=== PATIENT | male | born 1935 | race Caucasian/White ===

== ENCOUNTER 2018-11-18 09:50 | Inpatient (IN) | payer MEDICARE ==
[2018-11-18] MEDS ORDERED: Bisacodyl SUPP* 10 MG SUPP PR PRN (12:20)
[2018-11-18] MEDS ORDERED: Magnesium Hydroxide LIQ* 30 ML UDC PO PRN (12:20)
[2018-11-18] MEDS: Heparin VIAL(*) 5000 UNITS/ML VIAL (FIVE THOUSAND) SUBCUT SCH ×2 (17:07→23:51)
--- NOTE | 2018-11-18 17:28 | HP ---
ADMISSION HISTORY AND PHYSICAL: DATE OF ADMISSION: 11/18/18 REASON FOR ADMISSION: Stroke with left hemiparesis, greater in the arm than the leg. HISTORY OF PRESENT ILLNESS: Brandon ePters is an 83-year-old male. He has a medical history significant for a pacemaker for bradycardia and paroxysmal atrial fibrillation. The patient also has a history of hypertension as well. The patient normally lives by himself in [place], [place], but comes frequently to camp [place] a [place] on [address]. He has a grandson who goes to [place] and a son and [id number] who live in the area. Apparently, the patient was found down in his cabin by a neighbor. The exact period of time that he was down is unclear. He was slurring his words and had a left facial droop and had a right gaze preference. 911 was called and EMS brought him to the hospital on 11/14/18. NIH Stroke Scale was 21, but he was not a candidate for tPA as it was unknown how long he had the stroke for. His stroke was already seen on CAT scan in the emergency room. He was not a candidate for an MRI because of the pacemaker. He was started on Plavix. He had a neurology consultation with Dr. Santos. 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 It was recommended that he continue Plavix 75 mg daily. He will likely be a candidate to start Eliquis on 11/26/18. The patient's Eliquis will have to be renally dosed as he has chronic kidney disease. The patient did have a flaccid left upper extremity and with good strength in his left leg but poor balance. The patient was felt to have physical therapy, occupational therapy, and speech therapy needs. He was evaluated by Speech Therapy, and it was recommended that he have a videofluoroscopy swallow exam. The patient is now being admitted for inpatient rehab so that he might return to independent living. PAST MEDICAL HISTORY: Includes the aforementioned hypertension, paroxysmal atrial fibrillation, previous stroke or TIA 10 years ago, and prostatic hypertrophy. CURRENT MEDICATIONS: Include: 1. Lipitor. 2. Plavix. 3. Proscar. 4. Folic acid. 5. Melatonin. 6. Protonix. 7. Heparin for DVT prophylaxis. ALLERGIES: The patient has allergies listed to PENICILLIN. SOCIAL HISTORY: The patient quit smoking 8 years ago after his pacemaker was placed. He was a moderate drinker and had a few glasses of wine daily. He lives by himself normally in [place], [place], but as mentioned was visiting to be nearer his son. REVIEW OF SYSTEMS: The patient reports no current shortness of breath or chest pain. PHYSICAL EXAMINATION VITAL SIGNS: The patient's temperature is 95.1, blood pressure is 165/85, pulse 70, respirations 18. HEENT: He has a left facial droop. NECK: Supple. LUNGS: Lungs sounded clear to auscultation bilaterally. HEART: Heart sounds were regular. S1 and S2 audible. ABDOMEN: Soft and nontender. EXTREMITIES: His left upper extremity was flaccid for the most part. Peripheral pulses were intact. NEUROLOGIC: He had trace shoulder shrug on the left. Otherwise, no active movement in his left upper extremity. Left lower extremity had significantly better movement, at least 4/5 strength in hip flexion and extension, quadriceps and hamstrings. He could dorsiflex and plantarflex slightly. FUNCTIONAL EXAM: He transfers with mod assist of 2 people. ASSESSMENT: Cerebrovascular accident with left hemiparesis. PLAN: Integrate him into a comprehensive and therapeutic rehab program with the following goals: 1. Physical Therapy will see the patient, work on functional transfer training and ambulation training with a walker. 2. Occupational Therapy will see the patient, work on his activities of daily living including toileting and toilet transfers. 3. Speech Therapy will see the patient, work on his swallowing dysfunction, perform a video swallow. For now, he is going to remain on a mechanical ground diet with nectar-thick liquids. 4. Heparin for DVT prophylaxis. 5. For secondary stroke prevention, we are going to continue Plavix. We will follow Neurology's advice and change him to Eliquis in about a week. Apparently , his pacemaker was interrogated and he was found to have had episodes of atrial fibrillation. 6. For now, we are going to permit some hypertension. 7. The patient was on Klonopin at home. We are going to try to verify this and see if he needs to resume. 8. Continue folic acid for now. 9. child and family services specialist will be closely involved to make sure that any services and equipment the patient requires are in place prior to discharge. 10. Family training as appropriate. 11. Advance directives: The patient has a MOLST form and requests DNR status. 12. Home with appropriate services. ESTIMATED LENGTH OF STAY: 21 to 25 days. [id number]/[facility] #: [id number] IGOR
[2018-11-18] MEDS: Docusate CAP* 100 MG PO SCH (21:58)
[2018-11-18] MEDS: Melatonin 3 MG TAB PO PRN (23:53)
[2018-11-19 05:53] LABS: Hematocrit 40 % (42-52); Hemoglobin 13.4 g/dL (14.0-18.0); Mean Corpuscular HGB Conc 34 g/dL (31-36); Mean Corpuscular Hemoglobin 33 pg (27-31); Mean Corpuscular Volume 99 fL (80-94); Mean Platelet Volume 10.1 fL (7.4-10.4); Platelet Count 139 10^3/uL (150-450); Red Blood Count 4.03 10^6 /uL (4.18-5.48); Red Cell Distribution Width 13 % (10-15); White Blood Count 6.8 10^3/uL (3.5-10.8)
[2018-11-19] MEDS: Heparin VIAL(*) 5000 UNITS/ML VIAL (FIVE THOUSAND) SUBCUT SCH ×3 (06:08→21:29)
[2018-11-19 06:13] LABS: Albumin 3.5 g/dL (3.2-5.2); Calcium 9.2 mg/dL (8.6-10.3); Potassium 4.1 mmol/L (3.5-5.0); Total Bilirubin 0.7 mg/dL (0.2-1.0)
[2018-11-19 06:19] LABS: Albumin/Globulin Ratio 1.3 (1-3); BUN/Creatinine Ratio 29.4 (8-20); EGFR African American 57.3 (>60); EGFR Non-African American 47.3 (>60); Globulin 2.6 g/dL (2-4); Total Protein 6.1 g/dL (6.4-8.9)
[2018-11-19 06:20] LABS: ABS Basophils 0.1 10^3/ul (0-0.2); ABS Eosinophils 0.3 10^3/ul (0-0.6); ABS Lymphocytes 1.2 10^3/ul (1.0-4.8); ABS Monocytes 0.9 10^3/ul (0-0.8); ABS Neutrophils 4.3 10^3/ul (1.5-7.7); Eosinophil % 5.1 %; Large Platelets Present
[2018-11-19] MEDS: Finasteride TAB* 5 MG PO SCH (08:56)
[2018-11-19] MEDS: Docusate CAP* 100 MG PO SCH ×2 (08:56→20:00)
[2018-11-19] MEDS: Folic Acid TAB* 1 MG PO SCH (08:56)
[2018-11-19] MEDS: Clopidogrel TAB* 75 MG PO SCH (08:56)
[2018-11-19] MEDS: Pantoprazole TAB * 40 MG TAB PO SCH (08:56)
--- NOTE | 2018-11-19 12:59 | PMRUTEAM ---
PMRU: Team Meeting Current Status: Nursing: Current Status Skin Deviations [L dorsal ft, Abrasion toes] Skin Deviations [Left Temporal Abrasion ] Skin Deviations [Right Foot] Abrasion Skin Deviations [Left Heel] Other Skin Deviations [Right Elbow] Abrasion Skin Deviations [Left Lateral Abrasion Knee] Skin Deviations [Left Chest] Abrasion Skin Deviations [Left Upper Abrasion Arm] Skin Deviations [Left Shoulder Abrasion ] Skin Deviations [Left Cheek] Abrasion Skin Deviation Description [L multipodus boots in place dorsal ft, toes] Skin Deviation Description [ washed and triple antibiotic cream applied. open Left Temporal] to air Skin Deviation Description [ drsg in place. multipodus boot on when in bed Right Foot] Skin Deviation Description [ pink. multipodus boot on when in bed Left Heel] Skin Deviation Description [ drsg intact Right Elbow] Skin Deviation Description [ optifoam in place Left Lateral Knee] Skin Deviation Description [ area washed with soap and water. triple antibiotic Left Chest] cream, telfa and xeroform applied Skin Deviation Description [ optifoam changed Left Upper Arm] Skin Deviation Description [ optifoam in place Left Shoulder] Skin Deviation Description [ washed with soap and water. triple antibiotic Left Cheek] cream applied. open to air Physical Therapy: Current Status Bed Mobility Assistance Total Assist,2 or More Person Assist Transfer Mobility Assistance Total Assist,2 or More Person Assist Transfer/Bed Mobility EZ Stand Recommended Devices Ambulation Assistance Unable Ambulation Assistive Devices Large Base Quad Cane,Platform Walker,Balbir Walker Stairs Assistance Not Tested Stairs Recommended Devices Quad Cane Number of Stairs 3 Occupational Therapy: Current Status Upper Body Dressing Max Asst Lower Body Dressing Total Assist,2 Person Assist Bathing Max Asst,2 Person Assist Toileting Total Assist,2 Person Assist Eating Supervision Rec Therapy: Current Status Summary of Assessment and Pt. was very open to conversation about his Clinical Impression leisure interests and involvement. Pt. 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 Pt. was interested in continued leisure visits and pet therapy. Treatment Goals Pt. will engage in leisure activities while on the unit. Treatment Plan Provide recreation therapy services and encourage involvement. SPEECH THERAPY: CURRENT STATUS: COGNITIVE TESTED NORMAL, BUT BORDERLINE ON ATTENTION AND LANGUAGE. PERSEVERATION AND IMPULSIVITY NOTED. ASPIRATION OF THIN LIQUIDS SEEN WITH MINIMAL PENETRATION OF NECTAR THICKENED LIQUIDS Goals: Physical Therapy: Initial Goals Bed Mobility Assistance Independent Transfer Mobility Assistance Independent Transfer/Bed Mobility Large Base Quad Cane Recommended Devices Ambulation Independent Ambulation Recommended Devices Large Base Quad Cane Ambulation Distance 150 Stairs Assistance Independent Stair Recommended Devices One Rail Number of Stairs 8 Physical Therapy: Updated Goals Occupational Therapy: Initial Goals Goals to be Completed in (Days 4-6 weeks ) Upper Body Bathing Routine Modified Independent with Lower Body Bathing Routine Modified Independent with Upper Body Dressing Routine Modified Independent with Lower Body Dressing Routine Modified Independent with Toilet Hygeine and Clothing Modified Independent with Management Routine Toilet Transfer Routine Modified Independent with Tub Transfer Routine Modified Independent with Functional Transfers for ADL Modified Independent with Grooming Routine Modified Independent with Feeding Routine Modified Independent with Speech: Goals Speech Goal 1 Swallowing Speech Evaluation Status Goal Moderate 1 Goal 1 Comments Long-Term Goal: Patient will tolerate least restrictive diet consistencies w/ no stasis or clinical s/s aspiration Short Term Goals: 1) Pt will Independently use compensatory strategies to tolerate soft solid consistencies w/ no difficulty, minimal globus sensation and no clinical s/s aspiration, given Moderate cueing.. 2) Pt will use compensatory strategies to tolerate 20/20 trials of thin liquid over two sessions, w/ no clinical s/s aspiration, given Moderate cueing. 3) Pt will Speech Goal 2 Speech Speech Goal 2 Evaluation Mild Status Speech Goal 2 Comments Motor-speech Long-Term Goal: Pt will I'ly speak with 100% intelligibility Status: Goal established Short-Term Goal 1: Pt will use compensatory strategies to increase speech intelligibility to 95% in spontaneous conversational speech, given minimal cueing. Status: Goal established Speech Goal 3 Problem Solving Speech Goal 3 Evaluation Moderate Status Speech Goal 3 Comments Problem Solving Goals: Long-Term Goal: Pt will use compensatory strategies to solve moderately complex routine problems, for reading, time and money management; with 100% accuracy, Independently. Status: Goal established Short-Term Goal: Pt will use compensatory strategies to solve simple routine problems, for for reading, time and money management; with 80% accuracy, given skilled instruction, Moderate cueing, and extra time. Status: Goal established. Care Plan: Care Plan ADL's - Improve/Maintain Start: 11/18/18 15:55 Freq: DAILY@0700,1900 Status: Active Target: 12/31/18 Protocol: Activity Type Activity Date Activity User E-Sign Co-Sign Detail Recorded Client Recorded Date Recorded By Document 11/18/18 15:55 [id number] 11/18/18 15:56 [id number] 11/18/18 15:55 PMRU Outcome: ADL's/ADL Transfers Orders/Interventions Occupational Therapy Evaluation & Treatment Communication Tool in Patient Room Device Yes Address Deficits Secondary To: R CVA Patient to receive OT 5x/wk for 60-120 Therex min/day Self Care Management Group Therapy Neuromuscular ReEducation UE/LE ADL's with Assist Yes: Efraín ADL Transfers with Assist Yes: Efraín Toileting: Transfers,Clothing Management Yes: Efraín ,Hygeine w/Assist Light Kitchen/Laundry w/Assist No Progression Toward Outcome/Goals Goal Initiation Lack of Progression Comment Pt is an 83 y/o male s/p subacute nonhemorrhagic infarct R MCA presenting with L sided neglect, impaired cognition, R side gaze preferance, visual deficits , balance deficits, decreased strength and decreased insight affecting bathing, toileting, dressing and functional mobility/ transfers. Pt has difficulty maintaining midline and finding midline with his head/ eyes. Pt is very motivated and determined to "get better" . Pt will benefit from skilled OT rehabiliation to maximize independence and safety with ADL routine. Pt agreeable to OT POC. Cardiovascular- Improve/Maintain Start: 11/18/18 16:25 Freq: DAILY@0700,1900 Status: Active Target: 12/03/18 Protocol: Activity Type Activity Date Activity User E-Sign Co-Sign Detail Recorded Client Recorded Date Recorded By Document 11/19/18 08:45 [id number] 11/19/18 12:18 [id number] 11/19/18 08:45 PMRU Outcome: Cardiovascular Vital Signs q Shift for 48hrs Then BID Yes Daily Weight Ordered No Current Cardiovascular Outcome/Goal Maintain/ Achieve Baseline HR, BP , Perfusion Free of Abnormal Cardiac Symptoms Progression Toward Outcome/Goal Progressing DVT Prophylaxis- Improve/Maintain Start: 11/18/18 16:25 Freq: DAILY@0700,1900 Status: Active Target: 12/03/18 Protocol: Activity Type Activity Date Activity User E-Sign Co-Sign Detail Recorded Client Recorded Date Recorded By Document 11/19/18 08:45 [id number] 11/19/18 12:18 [id number] 11/19/18 08:45 PMRU Outcome: DVT Prophylaxis Current DVT Outcome/Goals Remains Free of DVT Complies with DVT Prophylaxis /Treatment Demonstrates Knowledge of DVT Prevention/ Treatment TEDS Stockings on Every AM, Off at HS Progression Toward Outcome/Goals Progressing Discharge Planning - Improve/Maintain Start: 11/18/18 16:25 Freq: DAILY@0700,1900 Status: Active Target: 12/17/18 Protocol: Activity Type Activity Date Activity User E-Sign Co-Sign Detail Recorded Client Recorded Date Recorded By Document 11/19/18 08:45 [id number] 11/19/18 12:18 [id number] 11/19/18 08:45 PMRU Outcome: Discharge Planning Current Discharge Planning Outcome/Goals Demonstrates Understanding of Discharge Plan Homecare Referral - See Comment Progression Toward Outcome/Goals Progressing Education-Improve/Maintain Start: 11/18/18 16:25 Freq: DAILY@699,1899 Status: Active Target: 12/17/18 Protocol: Activity Type Activity Date Activity User E-Sign Co-Sign Detail Recorded Client Recorded Date Recorded By Document 11/19/18 08:45 [id number] 11/19/18 12:18 [id number] 11/19/18 08:45 PMRU Outcome: Education Current Education Outcome/Goals Demonstrate/ Verbalize Understanding of Written Discharge Instructions Demonstrates Skills Encourage Questions Progression Toward Outcome/Goals Progressing /GI-Improve/Maintain Start: 11/18/18 16:25 Freq: DAILY@699,1899 Status: Active Target: 12/03/18 Protocol: Activity Type Activity Date Activity User E-Sign Co-Sign Detail Recorded Client Recorded Date Recorded By Document 11/19/18 08:45 [id number] 11/19/18 12:18 [id number] 11/19/18 08:45 PMRU Outcome: Genitourinary/ Gastrointestinal Current Gastrointestinal Outcome/Goals Maintain/ Achieve Bowel Regularity in Accordance with Pt's Baseline Remain Free of Emesis Prevent Constipation Bowel Regularity at Home Laxatives as Ordered Other GI Outcome/Goals bowel meds given as ordered Progression Toward Outcome/Goals Progressing Current Genitourinary Outcome/Goals Remain Free of Hospital- Acquired UTI Other Genitourinary Outcome/Goals wilson placed in ER d/t urinary retention. 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 No Mobility- Improve/Maintain Start: 11/18/18 17:21 Freq: DAILY@699,1899 Status: Active Target: 12/24/18 Protocol: Activity Type Activity Date Activity User E-Sign Co-Sign Detail Recorded Client Recorded Date Recorded By Document 11/18/18 17:22 [id number] 11/18/18 17:23 [id number] 11/18/18 17:22 PMRU Outcome: Mobility Physical Therapy Evaluation and Yes Treatment Activity OOB with Assistance Yes WBAT Yes Device Yes Assistance Yes Patient to be seen 5x/wk for 60-120 min/ Therex day for: Mobility Training Gait Training W/C Mobility Balance Current Mobility Outcome/Goals Maintain/ Achieve Baseline Mobility Status Improve Mobility Status Demonstrates Proper Use of Assistive Devices Free from Complications of Immobility Progression Toward Outcome/Goals Goal Initiation Bed Mobility Yes: independent Transfers Yes: independent with LBQC Gait x ft Yes: independent with LBQC Up/Down Stairs Yes: independent up/ down 8 stairs with 1 rail Neurological- Improve/Maintain Start: 11/18/18 16:25 Freq: DAILY@699,0 Status: Active Target: 12/17/18 Protocol: Activity Type Activity Date Activity User E-Sign Co-Sign Detail Recorded Client Recorded Date Recorded By Document 11/19/18 08:45 [id number] 11/19/18 12:18 [id number] 11/19/18 08:45 PMRU Outcome: Neurological Weakness/Aphasia Weakness Left Side Current Neurological Outcome/Goals Maintain/ Achieve Baseline Neurological Status Improve Neurological Status Prevent Avoidable Neurological Decline Demonstrate Knowledge of Prevention/Tx of Neuro Disorders/ Complication Maintain/ Improve Strength/ROM Other Neurological Outcome/Goals l arm elevated on 2pillows while in bed or chair Progression Toward Outcome/Goals Progressing Nutrition/Swallowing- Improve/Maintain Start: 11/18/18 16:25 Freq: DAILY@699,1899 Status: Active Target: 12/03/18 Protocol: Activity Type Activity Date Activity User E-Sign Co-Sign Detail Recorded Client Recorded Date Recorded By Document 11/19/18 02:03 [id number] 11/19/18 02:05 [id number] 11/19/18 02:03 PMRU Outcome: Nutrition/Swallowing Current Nutrition/Swallowing Outcome/ Demonstrates Goals Adequate Hydration/ Prevents Dehydration Maintain/ Improve Nutritional Status Other Nutrition/Swallowing Outcome/Goals pureed food, nectar-thick liquids Progression Toward Outcome/Goals Progressing Respiratory - Improve/Maintain Start: 11/18/18 16:25 Freq: DAILY@ Status: Active Target: 12/03/18 Protocol: Activity Type Activity Date Activity User E-Sign Co-Sign Detail Recorded Client Recorded Date Recorded By Document 11/19/18 08:45 [id number] 11/19/18 12:18 [id number] 11/19/18 08:45 PMRU Outcome: Respiratory Does Patient Have a Trach No Current Respiratory Outcome/Goals Maintain/ Improve Baseline Respiratory Status Maintain/ Improve Activity Tolerance Prevent Pneumonia/ Atelectasis Remain Aspiration Free Other Respiratory Outcome/Goals encouraged CDB. will instruct patient on IS Progression Toward Outcome/Goals Progressing Safety- Improve/Maintain Start: 11/18/18 11:45 Freq: DAILY@699,1899 Status: Active Target: 12/03/18 Protocol: Activity Type Activity Date Activity User E-Sign Co-Sign Detail Recorded Client Recorded Date Recorded By Document 11/19/18 08:45 [id number] 11/19/18 12:18 [id number] 11/19/18 08:45 PMRU Outcome: Safety Current Safety Outcome/Goals Remain Free of Injury or Harm Cooperates with Safety Measures for Least Restrictive Environment Prevent Falls/ Injury Other Safety Outcome/Goals PA/BA Progression Toward Outcome/Goals Progressing Skin- Improve/Maintain Start: 11/18/18 16:25 Freq: DAILY@699,1899 Status: Active Target: 12/03/18 Protocol: Activity Type Activity Date Activity User E-Sign Co-Sign Detail Recorded Client Recorded Date Recorded By Document 11/19/18 08:45 [id number] 11/19/18 12:18 [id number] 11/19/18 08:45 PMRU Outcome: Skin Skin Risk Level Moderate Risk Skin Orders Dressing Change Multipodus Boot Turn/Position q2hr While in Bed Skin Orders Comment Optifoam to l shoulder, l arm , l chest, l knee. triple antibiotic cream, telfa and xeroform applied to l chest Current Skin Outcome/Goals Maintain/ Improve Skin Integrity Free from Pressure Injury Progression Toward Outcome/Goals Progressing Medicine Note: Length of Stay: 6 WEEKS Anticipated Discharge Destination: Tentative Discharge Date: December 31, 2018 Discharged to: Home
[2018-11-19] MEDS: Atorvastatin* 10 MG TAB PO SCH (16:10)
--- NOTE | 2018-11-19 17:14 | PN ---
Progress Note Date of Service: 11/19/18 Note: CHAPINCITO MORALES SR was visited. Therapy notes read and reviewed. He was discussed in interdisciplinary plan of care rounds. He is quite impaired at present but eager to work with therapists. Right gaze preference may be slightly improved. Current Medications: Active Medications Generic Name Dose Route Start Last Admin Trade Name Freq PRN Reason Stop Dose Admin Acetaminophen 650 mg 11/18/18 12:20 Tylenol Tab* PO Q6H PRN MILD PAIN or TEMP > 100.4 Atorvastatin Calcium 10 mg 11/19/18 17:00 11/19/18 16:10 Lipitor* PO 10 mg 1700 INDU Administration Bisacodyl 10 mg 11/18/18 12:20 Dulcolax Supp* HI DAILY PRN CONSTIPATION Clopidogrel Bisulfate 75 mg 11/19/18 09:00 11/19/18 08:56 Plavix Tab* PO 75 mg DAILY INDU Administration Docusate Sodium 100 mg 11/18/18 21:00 11/19/18 08:56 Colace Cap* PO 100 mg BID INDU Administration Finasteride 5 mg 11/19/18 09:00 11/19/18 08:56 Proscar Tab* PO 5 mg DAILY INDU Administration Folic Acid 1 mg 11/19/18 09:00 11/19/18 08:56 Folvite Tab* PO 1 mg DAILY INDU Administration Heparin Sodium (Porcine) 5,000 units 11/18/18 14:00 11/19/18 13:56 Heparin Vial(*) SUBCUT 5,000 units Q8HR INDU Administration Hydrocortisone 1 applic 11/19/18 21:00 Hytone Cream 1%* TOPICAL BID INDU Magnesium Hydroxide 30 ml 11/18/18 12:20 Milk Of Magnesia Liq* PO Q6H PRN CONSTIPATION Melatonin 3 mg 11/18/18 12:32 11/18/18 23:53 Melatonin PO 3 mg BEDTIME PRN Administration SLEEP Pantoprazole Sodium 40 mg 11/19/18 09:00 11/19/18 08:56 Protonix Tab* PO 40 mg DAILY INDU Administration Senna 2 tab 11/18/18 12:20 Senokot 8.6 Mg Tab* PO BEDTIME PRN CONSTIPATION Vital Signs: Vital Signs Temp Pulse Resp BP Pulse Ox 97.3 F 49 18 184/80 99 11/19/18 15:52 11/19/18 15:52 11/19/18 15:52 11/19/18 15:52 11/19/18 15:52 Lab Results: Laboratory Results - last 24 hr 11/19/18 11/19/18 05:28 05:28 WBC 6.8 RBC 4.03 L Hgb 13.4 L Hct 40 L MCV 99 H MCH 33 H MCHC 34 RDW 13 Plt Count 139 L MPV 10.1 Neut % (Auto) 63.0 Lymph % (Auto) 17.0 Faulkner % (Auto) 13.9 Eos % (Auto) 5.1 Baso % (Auto) 1.0 Absolute Neuts (auto) 4.3 Absolute Lymphs (auto) 1.2 Absolute Monos (auto) 0.9 H Absolute Eos (auto) 0.3 Absolute Basos (auto) 0.1 Absolute Nucleated RBC 0.0 Nucleated RBC % 0.0 Large Platelets Present Sodium 143 Potassium 4.1 Chloride 106 Carbon Dioxide 31 Anion Gap 6 BUN 42 H Creatinine 1.43 H Est GFR ( Amer) 57.3 Est GFR (Non-Af Amer) 47.3 BUN/Creatinine Ratio 29.4 H Glucose 140 H Calcium 9.2 Total Bilirubin 0.70 AST 27 ALT 23 Alkaline Phosphatase 45 Total Protein 6.1 L Albumin 3.5 Globulin 2.6 Albumin/Globulin Ratio 1.3 Exam: GENERAL: Alert, pleasant, no distress HEENT: Left facial droop LUNGS: Clear bilaterally HEART: Regular rhythm ABDOMEN: Soft, +BS EXTREMITIES: Decreased tone LUE NEUROLOGIC: A&O. Some trace shoulder shrug on LUE, otherwise no movement seen. Left leg 4/5 Assessment/Plan: 1. 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 Will switch to Eliquis 11/26, per neurology 2. Hypercholesterolemia: Lipitor 3. DVT Prophylaxis: Hepain S/Q 4. Dysphagia: Pureed solids/nectar thick liquids 5. BPH: Proscar 6. Advance Directives: Has MOLST. DNR 11/19/18 17:15 11/19/18 17:16
[2018-11-19] MEDS: Senna TAB 8.6 mg* TAB PO PRN (20:00)
[2018-11-19] MEDS: Hydrocortisone 1% CREAM* 30 GM TUBE TOPICAL SCH (21:29)
[2018-11-19] MEDS: Melatonin 3 MG TAB PO PRN (23:23)
[2018-11-20] MEDS: Heparin VIAL(*) 5000 UNITS/ML VIAL (FIVE THOUSAND) SUBCUT SCH ×3 (05:36→21:17)
[2018-11-20] MEDS ORDERED: hydrALAZINE TAB* 10 MG PO ONE (05:55)
[2018-11-20] MEDS: Finasteride TAB* 5 MG PO SCH (08:54)
[2018-11-20] MEDS: Pantoprazole TAB * 40 MG TAB PO SCH (08:54)
[2018-11-20] MEDS: Clopidogrel TAB* 75 MG PO SCH (08:54)
[2018-11-20] MEDS: Folic Acid TAB* 1 MG PO SCH (08:55)
[2018-11-20] MEDS: Docusate CAP* 100 MG PO SCH ×2 (08:56→21:18)
[2018-11-20] MEDS: Hydrocortisone 1% CREAM* 30 GM TUBE TOPICAL SCH ×2 (09:01→21:18)
[2018-11-20] MEDS ORDERED: hydrALAZINE TAB* 10 MG PO PRN (10:51)
--- NOTE | 2018-11-20 10:55 | PN ---
Progress Note Date of Service: 11/20/18 Note: CHAPINCITO MORALES SR was visited. Therapy notes read and reviewed. He had a SBP this am over 190, and a PRN hydralazine was ordered. Will resume Cozaar in am. Also, he was on Klonopin before, will order PRN ativan if needed for anxiety Current Medications: Active Medications Generic Name Dose Route Start Last Admin Trade Name Freq PRN Reason Stop Dose Admin Acetaminophen 650 mg 11/18/18 12:20 Tylenol Tab* PO Q6H PRN MILD PAIN or TEMP > 100.4 Atorvastatin Calcium 10 mg 11/19/18 17:00 11/19/18 16:10 Lipitor* PO 10 mg 1700 INDU Administration Bisacodyl 10 mg 11/18/18 12:20 Dulcolax Supp* [place] DAILY PRN CONSTIPATION Clopidogrel Bisulfate 75 mg 11/19/18 09:00 11/20/18 08:54 Plavix Tab* PO 75 mg DAILY INDU Administration Docusate Sodium 100 mg 11/18/18 21:00 11/20/18 08:56 Colace Cap* PO 100 mg BID INDU Administration Finasteride 5 mg 11/19/18 09:00 11/20/18 08:54 Proscar Tab* PO 5 mg DAILY INDU Administration Folic Acid 1 mg 11/19/18 09:00 11/20/18 08:55 Folvite Tab* PO 1 mg DAILY INDU Administration Heparin Sodium (Porcine) 5,000 units 11/18/18 14:00 11/20/18 05:36 Heparin Vial(*) SUBCUT 5,000 units Q8HR INDU Administration Hydralazine HCl 10 mg 11/20/18 10:51 Apresoline Tab* PO Q8H PRN Systolic Bp Greater Than: 180 Hydrocortisone 1 applic 11/19/18 21:00 11/20/18 09:01 Hytone Cream 1%* TOPICAL 1 applic BID INDU Administration Lorazepam 0.5 mg 11/20/18 10:53 Ativan Tab(*) PO Q6H PRN ANXIETY Losartan Potassium 25 mg 11/21/18 09:00 Cozaar Tab* PO DAILY INDU Magnesium Hydroxide 30 ml 11/18/18 12:20 Milk Of Magnesia Liq* PO Q6H PRN CONSTIPATION Melatonin 3 mg 11/18/18 12:32 11/19/18 23:23 Melatonin PO 3 mg BEDTIME PRN Administration SLEEP Pantoprazole Sodium 40 mg 11/19/18 09:00 11/20/18 08:54 Protonix Tab* PO 40 mg DAILY INDU Administration Senna 2 tab 11/18/18 12:20 11/19/18 20:00 Senokot 8.6 Mg Tab* PO 2 tab BEDTIME PRN Administration CONSTIPATION Vital Signs: Vital Signs Temp Pulse Resp BP Pulse Ox 97.7 F 64 18 176/86 95 11/20/18 05:50 11/20/18 10:42 11/20/18 05:50 11/20/18 10:42 11/20/18 09:00 Exam: GENERAL: Alert, pleasant, no distress HEENT: Left facial droop LUNGS: Clear bilaterally HEART: Regular rhythm ABDOMEN: Soft, +BS EXTREMITIES: Decreased tone LUE NEUROLOGIC: A&O. Some trace shoulder shrug on LUE, maybe trace biceps, otherwise no movement seen. Left leg 4/5 Assessment/Plan: 1. Right MCA CVA with left hemiparesis: PT/OT/[employer]. Plavix. Will switch to Eliquis 11/26, per neurology 2. Hypercholesterolemia: Lipitor 3. DVT Prophylaxis: Hepain S/Q 4. Dysphagia: Pureed solids/nectar thick liquids 5. Hypertension: Resume Cozaar. Hydralazine PRN. 6. BPH: Proscar 7. Advance Directives: Has KHALIDA. DNR 8. Paroxysmal Atrial fibrillation: Eliquis to start 11/26 per neurology 11/20/18 10:56
[2018-11-20] MEDS: Atorvastatin* 10 MG TAB PO SCH (17:00)
[2018-11-20] MEDS ORDERED: Furosemide IV* 10 MG/ML 2 ML VIAL (20 MG) IV SLOW PU ONE (20:50)
--- NOTE | 2018-11-20 21:32 | PN ---
Hospitalist Progress Note Date of Service: 11/20/18 Rn returning from bed meeting brought to our attention patient was having difficulty breathing. This caption writer and Dr Snyder to bedside. Patient reports breathing has improved since onset. EKG obtain and reviewed by Dr Snyder. RN received ordered from Dr Butts for IV Lasix. Labs and chest xray to be ordered and to be reviewed by Dr Snyder
[2018-11-20 23:30] LABS: ABS Basophils 0.1 10^3/ul (0-0.2); ABS Eosinophils 0.2 10^3/ul (0-0.6); ABS Lymphocytes 1.1 10^3/ul (1.0-4.8); ABS Neutrophils 7.5 10^3/ul (1.5-7.7); Eosinophil % 2.4 %; Hematocrit 44 % (42-52); Hemoglobin 14.9 g/dL (14.0-18.0); Lymphocyte % 10.8 %; Mean Corpuscular HGB Conc 34 g/dL (31-36); Mean Corpuscular Hemoglobin 33 pg (27-31); Mean Corpuscular Volume 98 fL (80-94); Mean Platelet Volume 9.2 fL (7.4-10.4); Platelet Count 154 10^3/uL (150-450); Red Blood Count 4.51 10^6 /uL (4.18-5.48); Red Cell Distribution Width 13 % (10-15); White Blood Count 9.9 10^3/uL (3.5-10.8)
[2018-11-20 23:47] LABS: BUN/Creatinine Ratio 27.1 (8-20); Calcium 9.7 mg/dL (8.6-10.3); EGFR African American 71.5 (>60); EGFR Non-African American 59.1 (>60); Potassium 4.1 mmol/L (3.5-5.0)
[2018-11-21] MEDS: LORazepam TAB(*) 0.5 MG PO PRN (00:45)
[2018-11-21] MEDS: Heparin VIAL(*) 5000 UNITS/ML VIAL (FIVE THOUSAND) SUBCUT SCH ×3 (05:33→21:13)
[2018-11-21] MEDS: Finasteride TAB* 5 MG PO SCH (09:25)
[2018-11-21] MEDS: Clopidogrel TAB* 75 MG PO SCH (09:26)
[2018-11-21] MEDS: Folic Acid TAB* 1 MG PO SCH (09:27)
[2018-11-21] MEDS: Docusate CAP* 100 MG PO SCH ×2 (09:27→20:55)
[2018-11-21] MEDS: Pantoprazole TAB * 40 MG TAB PO SCH (09:27)
[2018-11-21] MEDS: Losartan TAB* 25 MG PO SCH (09:28)
[2018-11-21] MEDS: Hydrocortisone 1% CREAM* 30 GM TUBE TOPICAL SCH ×3 (09:28→20:56)
--- NOTE | 2018-11-21 13:48 | PN ---
Progress Note Date of Service: 11/21/18 Note: CHAPINCITO MORALES SR was visited. Therapy notes read and reviewed. He felt like he was having some difficulty breathing last night and was wheezy when assessed by nursing staff. Patient was adjusted in bed, sat up, O2 appleied and felt better. I was called. IV lasix, oxygen and an EKG ordered. EKG showed a paced rhythm. Labs obtained. Lytes ok. BP was up and hydralazine given. CXR showed questionable infiltrate, but he was afebrile and WBC ok. No treatment initiated. Will follow. CBC ordered for am. Current Medications: Active Medications Generic Name Dose Route Start Last Admin Trade Name Freq PRN Reason Stop Dose Admin Acetaminophen 650 mg 11/18/18 12:20 Tylenol Tab* PO Q6H PRN MILD PAIN or TEMP > 100.4 Atorvastatin Calcium 10 mg 11/19/18 17:00 11/20/18 17:00 Lipitor* PO 10 mg 1700 INDU Administration Bisacodyl 10 mg 11/18/18 12:20 Dulcolax Supp* [place] DAILY PRN CONSTIPATION Clopidogrel Bisulfate 75 mg 11/19/18 09:00 11/21/18 09:26 Plavix Tab* PO 75 mg DAILY INDU Administration Docusate Sodium 100 mg 11/18/18 21:00 11/21/18 09:27 Colace Cap* PO Not Given BID INDU Finasteride 5 mg 11/19/18 09:00 11/21/18 09:25 Proscar Tab* PO 5 mg DAILY INDU Administration Folic Acid 1 mg 11/19/18 09:00 11/21/18 09:27 Folvite Tab* PO 1 mg DAILY INDU Administration Heparin Sodium (Porcine) 5,000 units 11/18/18 14:00 11/21/18 05:33 Heparin Vial(*) SUBCUT 5,000 units Q8HR INDU Administration Hydralazine HCl 10 mg 11/20/18 10:51 11/20/18 23:09 Apresoline Tab* PO 10 mg Q8H PRN Administration Systolic Bp Greater Than: 180 Hydrocortisone 1 applic 11/19/18 21:00 11/21/18 09:28 Hytone Cream 1%* TOPICAL Not Given BID INDU Lorazepam 0.5 mg 11/20/18 10:53 11/21/18 00:45 Ativan Tab(*) PO 0.5 mg Q6H PRN Administration ANXIETY Losartan Potassium 25 mg 11/21/18 09:00 11/21/18 09:28 Cozaar Tab* PO 25 mg DAILY INDU Administration Magnesium Hydroxide 30 ml 11/18/18 12:20 Milk Of Magnesia Liq* PO Q6H PRN CONSTIPATION Melatonin 3 mg 11/18/18 12:32 11/19/18 23:23 Melatonin PO 3 mg BEDTIME PRN Administration SLEEP Pantoprazole Sodium 40 mg 11/19/18 09:00 11/21/18 09:27 Protonix Tab* PO 40 mg DAILY INDU Administration Senna 2 tab 11/18/18 12:20 11/19/18 20:00 Senokot 8.6 Mg Tab* PO 2 tab BEDTIME PRN Administration CONSTIPATION Vital Signs: Vital Signs Temp Pulse Resp BP Pulse Ox 97.9 F 70 18 172/80 98 11/21/18 06:39 11/21/18 06:39 11/21/18 08:00 11/21/18 06:41 11/21/18 08:00 Lab Results: Laboratory Results - last 24 hr 11/20/18 11/20/18 11/20/18 20:45 23:25 23:25 WBC 9.9 RBC 4.51 Hgb 14.9 Hct 44 MCV 98 H MCH 33 H MCHC 34 RDW 13 Plt Count 154 MPV 9.2 Neut % (Auto) 75.8 Lymph % (Auto) 10.8 [place] % (Auto) 10.4 Eos % (Auto) 2.4 Baso % (Auto) 0.6 Absolute Neuts (auto) 7.5 Absolute Lymphs (auto) 1.1 Absolute Monos (auto) 1.0 H Absolute Eos (auto) 0.2 Absolute Basos (auto) 0.1 Absolute Nucleated RBC 0.0 Nucleated RBC % 0.0 Sodium 140 Potassium 4.1 Chloride 102 Carbon Dioxide 32 Anion Gap 6 BUN 32 H Creatinine 1.18 H Est GFR ( Amer) 71.5 Est GFR (Non-Af Amer) 59.1 BUN/Creatinine Ratio 27.1 H Glucose 139 H POC Glucose (mg/dL) 152 H Calcium 9.7 Exam: GENERAL: Alert, pleasant, no distress HEENT: Left facial droop LUNGS: Clear bilaterally, no wheeze or rales heard HEART: Regular rhythm ABDOMEN: Soft, +BS EXTREMITIES: Decreased tone LUE NEUROLOGIC: A&O. Some trace shoulder shrug on LUE, maybe trace finger flexion and biceps, otherwise no movement seen. Left leg 4/ Assessment/Plan: 1. Right MCA CVA with left hemiparesis: PT/OT/[employer]. Plavix. Will switch to Eliquis 11/26, per neurology 2. Hypercholesterolemia: Lipitor 3. DVT Prophylaxis: Hepain S/Q 4. Dysphagia: Pureed solids/nectar thick liquids 5. Hypertension: Resume Cozaar. Hydralazine PRN. 6. BPH: Proscar 7. SOB: Unclear if he has aspiration pneumonia, but no treatment as WBC, temp normal. Much better today. Will order Albuterol and atrovent for COPD 8. Advance Directives: Has MOLST. DNR 9. Paroxysmal Atrial fibrillation: Eliquis to start 11/26 per neurology 10. Chronic kidney disease: Follow BUN/Cr 11/21/18 13:49
[2018-11-21] MEDS ORDERED: Ipratropium 0.5MG/2.5ML NEB* 0.5 MG/2.5 ML NEB.SOLN INH PRN (13:52)
[2018-11-21] MEDS: Atorvastatin* 10 MG TAB PO SCH (17:14)
[2018-11-22] MEDS: Melatonin 3 MG TAB PO PRN ×2 (00:41→20:46)
[2018-11-22 05:00] LABS: ABS Basophils 0.1 10^3/ul (0-0.2); ABS Eosinophils 0.4 10^3/ul (0-0.6); ABS Lymphocytes 1.3 10^3/ul (1.0-4.8); ABS Neutrophils 5.5 10^3/ul (1.5-7.7); Eosinophil % 5.1 %; Hematocrit 40 % (42-52); Lymphocyte % 15.3 %; Mean Corpuscular HGB Conc 35 g/dL (31-36); Mean Corpuscular Hemoglobin 34 pg (27-31); Mean Corpuscular Volume 98 fL (80-94); Mean Platelet Volume 10.2 fL (7.4-10.4); Platelet Count 152 10^3/uL (150-450); Red Blood Count 4.12 10^6 /uL (4.18-5.48); Red Cell Distribution Width 13 % (10-15); White Blood Count 8.3 10^3/uL (3.5-10.8)
[2018-11-22] MEDS: Heparin VIAL(*) 5000 UNITS/ML VIAL (FIVE THOUSAND) SUBCUT SCH ×3 (05:41→20:50)
[2018-11-22] MEDS: Docusate CAP* 100 MG PO SCH ×2 (08:54→20:19)
[2018-11-22] MEDS: Hydrocortisone 1% CREAM* 30 GM TUBE TOPICAL SCH ×2 (08:54→20:46)
[2018-11-22] MEDS ORDERED: Ipratropium 0.5MG/2.5ML NEB* 0.5 MG/2.5 ML NEB.SOLN INH PRN (09:18)
[2018-11-22] MEDS: Albuterol HFA INHALER* 8 gm MDI INH PRN (09:22)
[2018-11-22] MEDS: Losartan TAB* 25 MG PO SCH (09:28)
[2018-11-22] MEDS: Clopidogrel TAB* 75 MG PO SCH (09:28)
[2018-11-22] MEDS: Folic Acid TAB* 1 MG PO SCH (09:28)
[2018-11-22] MEDS: Pantoprazole TAB * 40 MG TAB PO SCH (09:29)
[2018-11-22] MEDS: Finasteride TAB* 5 MG PO SCH (09:29)
[2018-11-22] MEDS: Atorvastatin* 10 MG TAB PO SCH (17:26)
--- NOTE | 2018-11-22 17:37 | PN ---
Progress Note Date of Service: 11/22/18 Note: CHAPINCITO MORALES SR was visited. Therapy notes read and reviewed. He seems to be breathing better and his voice is stronger. Has atrovent treatment this am BP lower Current Medications: Active Medications Generic Name Dose Route Start Last Admin Trade Name Freq PRN Reason Stop Dose Admin Acetaminophen 650 mg 11/18/18 12:20 Tylenol Tab* PO Q6H PRN MILD PAIN or TEMP > 100.4 Albuterol 2 puff 11/21/18 13:52 11/22/18 09:22 Ventolin Hfa Inhaler* INH 2 puff Q6H PRN Administration SOB/WHEEZING Atorvastatin Calcium 10 mg 11/19/18 17:00 11/22/18 17:26 Lipitor* PO 10 mg 1700 INDU Administration Bisacodyl 10 mg 11/18/18 12:20 Dulcolax Supp* [place] DAILY PRN CONSTIPATION Clopidogrel Bisulfate 75 mg 11/19/18 09:00 11/22/18 09:28 Plavix Tab* PO 75 mg DAILY INDU Administration Docusate Sodium 100 mg 11/18/18 21:00 11/22/18 08:54 Colace Cap* PO Not Given BID INDU Finasteride 5 mg 11/19/18 09:00 11/22/18 09:29 Proscar Tab* PO 5 mg DAILY INDU Administration Folic Acid 1 mg 11/19/18 09:00 11/22/18 09:28 Folvite Tab* PO 1 mg DAILY INDU Administration Heparin Sodium (Porcine) 5,000 units 11/18/18 14:00 11/22/18 14:28 Heparin Vial(*) SUBCUT 5,000 units Q8HR INDU Administration Hydralazine HCl 10 mg 11/20/18 10:51 11/20/18 23:09 Apresoline Tab* PO 10 mg Q8H PRN Administration Systolic Bp Greater Than: 180 Hydrocortisone 1 applic 11/19/18 21:00 11/22/18 08:54 Hytone Cream 1%* TOPICAL 1 applic BID INDU Administration Ipratropium [place] 0.5 mg 11/22/18 09:18 11/22/18 09:56 Atrovent 0.5 Mg Neb.Jayshree* INH 0.5 mg Q6H PRN Administration SOB/WHEEZING Lorazepam 0.5 mg 11/20/18 10:53 11/21/18 00:45 Ativan Tab(*) PO 0.5 mg Q6H PRN Administration ANXIETY Losartan Potassium 25 mg 11/21/18 09:00 11/22/18 09:28 Cozaar Tab* PO 25 mg DAILY INDU Administration Magnesium Hydroxide 30 ml 11/18/18 12:20 Milk Of Magnesia Liq* PO Q6H PRN CONSTIPATION Melatonin 3 mg 11/18/18 12:32 11/22/18 00:41 Melatonin PO 3 mg BEDTIME PRN Administration SLEEP Pantoprazole Sodium 40 mg 11/19/18 09:00 11/22/18 09:29 Protonix Tab* PO 40 mg DAILY INDU Administration Senna 2 tab 11/18/18 12:20 11/19/18 20:00 Senokot 8.6 Mg Tab* PO 2 tab BEDTIME PRN Administration CONSTIPATION Vital Signs: Vital Signs Temp Pulse Resp BP Pulse Ox 97.5 F 64 20 144/69 99 11/22/18 16:05 11/22/18 16:05 11/22/18 16:05 11/22/18 16:05 11/22/18 16:05 Lab Results: Laboratory Results - last 24 hr 11/22/18 04:45 WBC 8.3 RBC 4.12 L Hgb 14.0 Hct 40 L MCV 98 H MCH 34 H MCHC 35 RDW 13 Plt Count 152 MPV 10.2 Neut % (Auto) 66.1 Lymph % (Auto) 15.3 [place] % (Auto) 12.5 Eos % (Auto) 5.1 Baso % (Auto) 1.0 Absolute Neuts (auto) 5.5 Absolute Lymphs (auto) 1.3 Absolute Monos (auto) 1.0 H Absolute Eos (auto) 0.4 Absolute Basos (auto) 0.1 Absolute Nucleated RBC 0.0 Nucleated RBC % 0.0 Exam: GENERAL: Alert, pleasant, no distress HEENT: Left facial droop LUNGS: Clear bilaterally, no wheeze or rales heard HEART: Regular rhythm ABDOMEN: Soft, +BS EXTREMITIES: Decreased tone LUE NEUROLOGIC: A&O. Some trace shoulder shrug on LUE, maybe trace finger flexion and biceps, otherwise no movement seen. Left leg 4/5 Assessment/Plan: 1. 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 Plavix. Will switch to Eliquis 11/26, per neurology 2. Hypercholesterolemia: Lipitor 3. DVT Prophylaxis: Hepain S/Q 4. Dysphagia: Pureed solids/nectar thick liquids 5. Hypertension: Cozaar. Hydralazine PRN. 6. BPH: Proscar 7. SOB: Does not appear that he had aspiration pneumonia. Much better today. Albuterol and atrovent for COPD 8. Advance Directives: Has MOLST. DNR 9. Paroxysmal Atrial fibrillation: Cassy to start 11/26 per neurology 10. Chronic kidney disease: Follow BUN/Cr 11/22/18 17:37
[2018-11-22] MEDS: LORazepam TAB(*) 0.5 MG PO PRN (20:46)
[2018-11-23] MEDS: Heparin VIAL(*) 5000 UNITS/ML VIAL (FIVE THOUSAND) SUBCUT SCH ×3 (05:14→20:55)
[2018-11-23] MEDS: Hydrocortisone 1% CREAM* 30 GM TUBE TOPICAL SCH ×2 (09:30→20:08)
[2018-11-23] MEDS: Pantoprazole TAB * 40 MG TAB PO SCH (09:31)
[2018-11-23] MEDS: Docusate CAP* 100 MG PO SCH ×2 (09:31→20:03)
[2018-11-23] MEDS: Folic Acid TAB* 1 MG PO SCH (09:31)
[2018-11-23] MEDS: Finasteride TAB* 5 MG PO SCH (09:31)
[2018-11-23] MEDS: Clopidogrel TAB* 75 MG PO SCH (09:31)
[2018-11-23] MEDS: Losartan TAB* 25 MG PO SCH (09:31)
--- NOTE | 2018-11-23 12:37 | PMRUTEAM ---
PMRU: Team Meeting Current Status: Nursing: Current Status Skin Deviations [L dorsal ft, Abrasion toes] Skin Deviations [Left Elbow] Abrasion Skin Deviations [Left Abrasion Posterior Neck] Skin Deviations [Left Temporal Abrasion ] Skin Deviations [Right Foot] Abrasion Skin Deviations [Left Heel] Abrasion Skin Deviations [Right Elbow] Abrasion Skin Deviations [Left Lateral Abrasion Knee] Skin Deviations [Left Chest] Abrasion Skin Deviations [Left Upper Abrasion Arm] Skin Deviations [Left Shoulder Abrasion ] Skin Deviations [Left Cheek] Abrasion Skin Deviation Description [L healing dorsal ft, toes] Skin Deviation Description [ optifoam applied Left Elbow] Skin Deviation Description [ bandaid in place Left Posterior Neck] Skin Deviation Description [ scabbed Left Temporal] Skin Deviation Description [ healing Right Foot] Skin Deviation Description [ multipoduce boots in place Left Heel] Skin Deviation Description [ optifoam in place Right Elbow] Skin Deviation Description [ optifoam in place Left Lateral Knee] Skin Deviation Description [ drsg intact Left Chest] Skin Deviation Description [ optifoam intact Left Upper Arm] Skin Deviation Description [ optifoam in place Left Shoulder] Skin Deviation Description [ scabbed Left Cheek] Bladder Current Status wilson in place Bowel Current Status last bm 11/20/18 Nutrition Current Status appetite good, tolerating nectar thick fluids, pureed food without difficulty Medication Current Status needs reinforcement Physical Therapy: Current Status Bed Mobility Assistance Max Assist Transfer Mobility Assistance Mod Assist,Max Assist,2 or More Person Assist Transfer/Bed Mobility Railings,EZ Stand Recommended Devices Ambulation Assistance Unable Ambulation Assistive Devices Large Base Quad Cane,Platform Walker,Balbir Walker Stairs Assistance Not Tested Stairs Recommended Devices Quad Cane Number of Stairs 3 Objective Comments Pt improving in ability to identify postural asymmetries and correction positioning at EOB while maintaining sitting balance with CGA-minAx1. Occupational Therapy: Current Status Upper Body Dressing Mod Assist Lower Body Dressing Total Assist,2 Person Assist Bathing Mod Assist,2 Person Assist Toileting Total Assist,2 Person Assist Toilet Transfer Total Assist,2 Person Assist Eating Supervision Rec Therapy: Current Status Summary of Assessment and Recreation Therapy assessment complete and pt. is Clinical Impression aware of services. Pt. has been active in pet therapy and leisure visits with activities being provided to him for independent engagement. Treatment Goals Pt. will engage in leisure activities while on the unit. Treatment Plan Provide recreation therapy services and encourage involvement. Speech: Current Status Assessment Patient is progressing as expected. Patient completed oral care and initial oropharyngeal exercises accurately given moderate skilled instruction. Patient tolerated liquid rinse Goals: Physical Therapy: Initial Goals Bed Mobility Assistance Independent Transfer Mobility Assistance Independent Transfer/Bed Mobility Large Base Quad Cane Recommended Devices Ambulation Independent Ambulation Recommended Devices Large Base Quad Cane Ambulation Distance 150 Stairs Assistance Independent Stair Recommended Devices One Rail Number of Stairs 8 Physical Therapy: Updated Goals Transfer/Bed Mobility EZ Stand Recommended Devices Occupational Therapy: Initial Goals Goals to be Completed in (Days 4-6 weeks ) Upper Body Bathing Routine Modified Independent with Lower Body Bathing Routine Modified Independent with Upper Body Dressing Routine Modified Independent with Lower Body Dressing Routine Modified Independent with Toilet Hygeine and Clothing Modified Independent with Management Routine Toilet Transfer Routine Modified Independent with Tub Transfer Routine Modified Independent with Functional Transfers for ADL Modified Independent with Grooming Routine Modified Independent with Feeding Routine Modified Independent with Nursing: Goals Bladder Goal independent Bowel Goal independent Medication Goal independent Nutrition: Goals Intervention Goals 1. adequate po intake to support hydration and lean body mass without wt loss 2. pt will tolerate least-restrictive diet texture without difficulty swallowing 3. maintain serum electrolytes WNL 4. regulation of bowel pattern; no c/o constipation (or diarrhea) Speech: Goals Speech Goal 1 Swallowing Speech Evaluation Status Goal Moderate 1 Goal 1 Comments Long-Term Goal: Patient will tolerate least restrictive diet consistencies w/ no stasis or clinical s/s aspiration Short Term Goals: 1) Pt will Independently use compensatory strategies to tolerate soft solid consistencies w/ no difficulty, minimal globus sensation and no clinical s/s aspiration, given Moderate cueing. Status; Progressing as expected. Patient is accepting of current pureed texture, and demonstrated adequate oral transit with no obvious lingual or buccal residue after liquid rinse. 2) Pt will use compensatory strategies to tolerate 20/20 trials of thin liquid over two sessions, w/ no clinical s/s aspiration, given Moderate cueing. Status: Goal established. 3) New Goal: Pt will use compensatory strategies to tolerate 10/10 trials of nectar liquid over two sessions, w/ no clinical s/s aspiration, given Minimal cueing. Status: Progressing as expected. SENIOR ENGINEERING MANAGER Indepdently took single sips, and demonstrably placed his cup down on the table after every sip. Patient required maximal cueing to complete Jaw opening exercise; he repeatedly closed his jaw to echo the speech therapists commands. Patient completed repetition of words with QRK sounds and accurately held his tongue base back between repetitions. Speech Goal 2 Speech Speech Goal 2 Evaluation Mild Status Speech Goal 2 Comments Motor-speech Long-Term Goal: Pt will I'ly speak with 100% intelligibility Status: Goal established Short-Term Goal 1: Pt will use compensatory strategies to increase speech intelligibility to 95% in spontaneous conversational speech, given minimal cueing. Status: Progressing as expected SENIOR ENGINEERING MANAGER administered intraoral stimulation with toothette to lingual dorsum; buccal sulci; anterior sulci, and palate, and tested sensation. Patient demonstrated normal gag reflex on soft palate and posterior lingual dorsum. Patient reported "the same" sensation on both buccal sulci and denied numbness, tingling or other altered sensation on his affected Left side. Note however thsat patient had been unreliable and confabulated when reporting intermitent light tough on his external Left cheek and lips. Patient completed labial retraction, elevation and depression exercises given minimal cueing. Patient achieved 60% Left lip retraction, and 30% Left lower lip depression. Speech Goal 3 Problem Solving Speech Goal 3 Evaluation Moderate Status Speech Goal 3 Comments Problem Solving Goals: Long-Term Goal: Pt will use compensatory strategies to solve moderately complex routine problems, for reading, time and money management; with 100% accuracy, Independently. Status: Goal established Short-Term Goal: Pt will use compensatory strategies to solve simple routine problems, for for reading, time and money management; with 80% accuracy, given skilled instruction, Moderate cueing, and extra time. Status: Goal established. 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 Pt demonstrated ROM L UE in digits 3 through 5, with greater ROM in the 5th digit. Minimal ROM in 1st and no ROM in 2nd digit. Pt observed coughing after finishing breakfast and after rinsing mouth. Pt was then able to spit out remaining liquid from rinsing with encouragement. Will discuss with speech therapist. Pt continues to be eager to participate, requires frequent cueing and reminders to attend to left side and to sit up straight when sitting at EOB. Pt also demonstrated limited attention during balbir dressing instruction, requiring frequent v/c's to continue to complete task. Progression Toward Outcome/Goals Progressing Cardiovascular- Improve/Maintain Start: 11/18/18 16:25 Freq: DAILY@699,1899 Status: Active Target: 12/09/18 Protocol: Activity Type Activity Date Activity User E-Sign Co-Sign Detail Recorded Client Recorded Date Recorded By Document 11/23/18 09:00 [id number] 11/23/18 11:05 [id number] 11/23/18 09:00 PMRU Outcome: Cardiovascular Vital Signs q Shift for 48hrs Then BID Yes Daily Weight Ordered No Current Cardiovascular Outcome/Goal Maintain/ Achieve Baseline HR, BP , Perfusion Improve HR Within Prescribed Parameters Maintain/ Improve Perfusion Maintain/ Achieve Hemodynamic Stability Free of Abnormal Cardiac Symptoms Progression Toward Outcome/Goal Progressing Communication-Improve/Maintain Start: 11/19/18 14:45 Freq: DAILY@0700,1900 Status: Active Target: 12/09/18 Protocol: Activity Type Activity Date Activity User E-Sign Co-Sign Detail Recorded Client Recorded Date Recorded By Document 11/23/18 00:52 [id number] 11/23/18 00:55 [id number] 11/23/18 00:52 PMRU Outcome: Communication/Cognitive Status Current Communication Outcome/Goals Other Other Communication Outcomes/Goals Long-Term Goal: Patient will tolerate least restrictive diet consistencies w / no stasis or clinical s/s aspiration Short Term Goals: 1) Pt will Independently use compensatory strategies to tolerate soft solid consistencies w / no difficulty , minimal globus sensation and no clinical s/s aspiration, given Moderate cueing. Status; Progressing as expected. Patient is accepting of current pureed texture, and demonstrated adequate oral transit with no obvious lingual or buccal residue after liquid rinse. 2) Pt will use compensatory strategies to tolerate 20/20 trials of thin liquid over two sessions, w/ no clinical s/s aspiration, given Moderate cueing. Status: Goal established. 3) New Goal: Pt will use compensatory strategies to tolerate 10/10 trials of nectar liquid over two sessions, w/ no clinical s/s aspiration, given Minimal cueing. Status: Progressing as expected. SENIOR ENGINEERING MANAGER instructed patient to ensure that he takes single sips, by placing his cup down on the table after every sip. Patient verbalized, demonstrated ability well, and provided independent teachback. Patient demonstrated delayed wet cough after 1/ 10 trials, and acknowledged that it indicates laryngeal penetation and the need to attend to and adjust his swallowing. Progression Toward Outcomes/Goals Progressing DVT Prophylaxis- Improve/Maintain Start: 11/18/18 16:25 Freq: DAILY@0700,1900 Status: Active Target: 12/09/18 Protocol: Activity Type Activity Date Activity User E-Sign Co-Sign Detail Recorded Client Recorded Date Recorded By Document 11/23/18 09:00 [id number] 11/23/18 11:05 [id number] 11/23/18 09:00 PMRU Outcome: DVT Prophylaxis Current DVT Outcome/Goals Remains Free of DVT Complies with DVT Prophylaxis /Treatment Demonstrates Knowledge of DVT Prevention/ Treatment TEDS Stockings on Every AM, Off at HS Progression Toward Outcome/Goals Progressing Discharge Planning - Improve/Maintain Start: 11/18/18 16:25 Freq: DAILY@0700,1900 Status: Active Target: 11/26/18 Protocol: Activity Type Activity Date Activity User E-Sign Co-Sign Detail Recorded Client Recorded Date Recorded By Document 11/23/18 09:00 [id number] 11/23/18 11:05 [id number] 11/23/18 09:00 PMRU Outcome: Discharge Planning Current Discharge Planning Outcome/Goals Demonstrates Understanding of Discharge Plan Homecare Referral - See Comment Progression Toward Outcome/Goals Progressing Education-Improve/Maintain Start: 11/18/18 16:25 Freq: DAILY@0700,1900 Status: Active Target: 12/24/18 Protocol: Activity Type Activity Date Activity User E-Sign Co-Sign Detail Recorded Client Recorded Date Recorded By Document 11/23/18 09:00 [id number] 11/23/18 11:05 [id number] 11/23/18 09:00 PMRU Outcome: Education Current Education Outcome/Goals Demonstrate/ Verbalize Understanding of Written Discharge Instructions Demonstrates Skills Encourage Questions Progression Toward Outcome/Goals Progressing /GI-Improve/Maintain Start: 11/18/18 16:25 Freq: DAILY@0700,1900 Status: Active Target: 12/09/18 Protocol: Activity Type Activity Date Activity User E-Sign Co-Sign Detail Recorded Client Recorded Date Recorded By Document 11/23/18 09:00 [id number] 11/23/18 11:05 [id number] 11/23/18 09:00 PMRU Outcome: Genitourinary/ Gastrointestinal Current Gastrointestinal Outcome/Goals Maintain/ Achieve Bowel Regularity in Accordance with Pt's Baseline Remain Free of Emesis Prevent Constipation Bowel Regularity at Home Laxatives as Ordered Other GI Outcome/Goals colace Progression Toward Outcome/Goals Progressing Current Genitourinary Outcome/Goals Maintain/ Achieve Urinary Continence Maintain/ Achieve Adequate Urinary Output Remain Free of Hospital- Acquired UTI Progression Toward Outcome/Goals Not Progressing Lack of Progression Comment wilson in place Medication Administration Start: 11/18/18 16:25 Freq: DAILY@0700,1900 Status: Active Target: 12/24/18 Protocol: Activity Type Activity Date Activity User E-Sign Co-Sign Detail Recorded Client Recorded Date Recorded By Document 11/23/18 09:00 [id number] 11/23/18 11:05 [id number] 11/23/18 09:00 PMRU Outcome: Medication Administration Assess Patient Knowledge/Teach Med Yes Education for all Meds Current Technical Operations Manager Outcome/Goals Family/ Caregiver Administer Medications at Home Demonstrates Understanding Progression Towards Outcome/Goals Progressing Is Patient Going Home on Lovenox? No Mobility- Improve/Maintain Start: 11/18/18 17:21 Freq: DAILY@0700,1900 Status: Active Target: 12/24/18 Protocol: Activity Type Activity Date Activity User E-Sign Co-Sign Detail Recorded Client Recorded Date Recorded By Document 11/22/18 12:55 [id number] 11/22/18 12:55 [id number] 11/22/18 12:55 PMRU Outcome: Mobility Physical Therapy Evaluation and Yes Treatment Activity OOB with Assistance Yes WBAT Yes Device Yes Assistance Yes Patient to be seen 5x/wk for 60-120 min/ Therex day for: Mobility Training Gait Training W/C Mobility Balance Current Mobility Outcome/Goals Maintain/ Achieve Baseline Mobility Status Improve Mobility Status Demonstrates Proper Use of Assistive Devices Free from Complications of Immobility Progression Toward Outcome/Goals Progressing Bed Mobility Yes: independent Transfers Yes: independent with LBQC Gait x ft Yes: independent with LBQC Up/Down Stairs Yes: independent up/ down 8 stairs with 1 rail Neurological- Improve/Maintain Start: 11/18/18 16:25 Freq: DAILY@699,1899 Status: Active Target: 12/09/18 Protocol: Activity Type Activity Date Activity User E-Sign Co-Sign Detail Recorded Client Recorded Date Recorded By Document 11/23/18 09:00 [id number] [email or web address] 11/23/18 11:05 [id number] 11/23/18 09:00 PMRU Outcome: Neurological Weakness/Aphasia Weakness Left Side Current Neurological Outcome/Goals Maintain/ Achieve Baseline Neurological Status Improve Neurological Status Prevent Avoidable Neurological Decline Demonstrate Knowledge of Prevention/Tx of Neuro Disorders/ Complication Maintain/ Improve Strength/ROM Progression Toward Outcome/Goals Progressing Nutrition/Swallowing- Improve/Maintain Start: 11/18/18 16:25 Freq: DAILY@699,1899 Status: Active Target: 12/09/18 Protocol: Activity Type Activity Date Activity User E-Sign Co-Sign Detail Recorded Client Recorded Date Recorded By Document 11/23/18 00:58 [id number] [email or web address] 11/23/18 00:58 [id number] 11/23/18 00:58 PMRU Outcome: Nutrition/Swallowing Current Nutrition/Swallowing Outcome/ Demonstrates Goals Adequate Hydration/ Prevents Dehydration Maintain/ Improve Nutritional Status Progression Toward Outcome/Goals Progressing Rec Therapy- Improve/Maintain Start: 11/19/18 08:48 Freq: DAILY@699,1900 Status: Active Target: 11/20/18 Protocol: Activity Type Activity Date Activity User E-Sign Co-Sign Detail Recorded Client Recorded Date Recorded By Document 11/19/18 16:26 [id number] 11/19/18 16:26 [id number] 11/19/18 16:26 PMRU Outcome: Recreation Therapy Current Rec Ther Outcome/Goals Meet with Patient Regularly for Support Encourage Leisure Involvement Progression Toward Outcome/Goals Progressing Lack of Progression Comment pt. participated in pet therapy and was provided with leisure material at his request. Outcome/Goals Met Complete Rec Therapy Assessment Respiratory - Improve/Maintain Start: 11/18/18 16:25 Freq: DAILY@0700,1900 Status: Active Target: 12/09/18 Protocol: Activity Type Activity Date Activity User E-Sign Co-Sign Detail Recorded Client Recorded Date Recorded By Document 11/23/18 09:00 [id number] [id number] 11/23/18 11:05 [id number] 11/23/18 09:00 PMRU Outcome: Respiratory Does Patient Have a Trach No Current Respiratory Outcome/Goals Maintain/ Improve O2 Sat per MD Order Maintain/ Improve Baseline Respiratory Status Maintain/ Improve Activity Tolerance Prevent Pneumonia/ Atelectasis Other Respiratory Outcome/Goals educated on IS. patient only able to reach 500 Progression Toward Outcome/Goals Progressing Safety- Improve/Maintain Start: 11/18/18 11:45 Freq: DAILY@0700,1900 Status: Active Target: 12/09/18 Protocol: Activity Type Activity Date Activity User E-Sign Co-Sign Detail Recorded Client Recorded Date Recorded By Document 11/23/18 09:00 [id number] [email or web address] 11/23/18 11:05 [id number] 11/23/18 09:00 PMRU Outcome: Safety Current Safety Outcome/Goals Remain Free of Injury or Harm Cooperates with Safety Measures for Least Restrictive Environment Prevent Falls/ Injury Other Safety Outcome/Goals BA and PA on Progression Toward Outcome/Goals Progressing Skin- Improve/Maintain Start: 11/18/18 16:25 Freq: DAILY@0700,1900 Status: Active Target: 12/09/18 Protocol: Activity Type Activity Date Activity User E-Sign Co-Sign Detail Recorded Client Recorded Date Recorded By Document 11/23/18 09:00 [id number] 11/23/18 11:05 [id number] 11/23/18 09:00 PMRU Outcome: Skin Skin Risk Level Mild Risk Skin Orders Multipodus Boot Turn/Position q2hr While in Bed Other Skin Orders Comment patient in new bed Current Skin Outcome/Goals Maintain/ Improve Skin Integrity Free from Pressure Injury Maintain/ Improve Wound Status Progression Toward Outcome/Goals Progressing Medicine Note: Length of Stay: 5 1/2 weeks Anticipated Discharge Destination: Tentative Discharge Date: December 31, 2018 Discharged to: Home
--- NOTE | 2018-11-23 15:58 | CONSULT ---
Subjective Date of Service: 11/23/18 Interval History: Mr. Peters is an 83 yo male with PMH significant for TIA, A fib, obesity, and HTN ; who presented to the emergency room with left sided weakness after being found on the ground at home (he could have been down for 24-48 hours). He was initially admitted to the hospital for a CVA, he was then transferred to [facility] for rehabilitation. Presented to the hospital with multiple area of skin breakdown to the left side of his body and right foot. Patient seen and examined at bedside. Family History: Unchanged from Admission Social History: Unchanged from Admission Past Medical History: Unchanged from Admission Review of Systems - Measurements Intake and Output: Intake and Output Last 24 Hours 11/21/18 11/22/18 11/23/18 11/24/18 06:59 06:59 06:59 06:59 Intake Total 300 240 880 360 Output Total 2050 775 425 200 Balance -1750 -535 455 160 Intake: Oral 300 240 880 360 Output: Osorio 2049 775 425 200 Other: # Bowel Movements 1 Estimated Stool Amount Large # Voids 1 - Review of Systems Constitutional Symptoms: Negative: Fever, Other - Chills Dermatology: Positive: Other - Multiple skin abrasions Neurology: Positive: Other - Left sided weakness Objective Active Medications: Acetaminophen (Tylenol Tab*) 650 mg PO Q6H PRN Reason: MILD PAIN or TEMP > 100.4 Albuterol (Ventolin Hfa Inhaler*) 2 puff INH Q6H PRN Reason: SOB/WHEEZING Atorvastatin Calcium (Lipitor*) 10 mg PO 1700 INDU Bisacodyl (Dulcolax Supp*) 10 mg [place] DAILY PRN Reason: CONSTIPATION Clopidogrel Bisulfate (Plavix Tab*) 75 mg PO DAILY INDU Docusate Sodium (Colace Cap*) 100 mg PO BID INDU Finasteride (Proscar Tab*) 5 mg PO DAILY INDU Folic Acid (Folvite Tab*) 1 mg PO DAILY INDU Heparin Sodium (Porcine) (Heparin Vial(*)) 5,000 units SUBCUT Q8HR INDU Hydralazine HCl (Apresoline Tab*) 10 mg PO Q8H PRN Reason: Systolic Bp Greater Than: 180 Hydrocortisone (Hytone Cream 1%*) 1 applic TOPICAL BID INDU Ipratropium [place] (Atrovent 0.5 Mg Neb.Jayshree*) 0.5 mg INH Q6H PRN Reason: SOB/ WHEEZING Lorazepam (Ativan Tab(*)) 0.5 mg PO Q6H PRN Reason: ANXIETY Losartan Potassium (Cozaar Tab*) 25 mg PO DAILY INDU Magnesium Hydroxide (Milk Of Magnesia Liq*) 30 ml PO Q6H PRN Reason: CONSTIPATION Melatonin (Melatonin) 3 mg PO BEDTIME PRN Reason: SLEEP Pantoprazole Sodium (Protonix Tab*) 40 mg PO DAILY INUD Senna (Senokot 8.6 Mg Tab*) 2 tab PO BEDTIME PRN Reason: CONSTIPATION 11/23/18 05:15 Temperature 97.4 F Pulse Rate 69 Respiratory 18 Rate Blood Pressure 170/72 (mmHg) Blood Pressure 104 Mean O2 Sat by Pulse 93 Oximetry Patient on Room Yes Air Oxygen Devices in Use Now: None Appearance: NAD, sitting up in bed Ears/Nose/Mouth/Throat: Mucous Membranes Moist Respiratory: Symmetrical Chest Expansion and Respiratory Effort Cardiovascular: No Edema Skin: - - See skin note below Neurological: Alert and Oriented x 3 Nutrition: Taking PO's Result Diagrams: 11/22/18 04:45 11/20/18 23:25 Skin Deviation Note - Skin Deviation Findings Left cheek - Scabbed area, measures 2.4 cm x 2.3 cm. No drainage and the surrounding skin is intact. Left Chest - Large abrasion, measures 8.5 cm x 6 cm x 0.1 cm. The wound base is red granulation tissue. There is no drainage. The surrounding skin is intact. There is also an abrasion distal to the large one, measures 1 cm x 2 cm x 0.1 cm. The wound base is red granulation tissue, there is no drainage. The surrounding skin is intact. There is irritation to the axilla from the dressing. More distal to the bottom abrasion is a area of irritation, measures 2 cm x 4 cm. The area is not open, but with erythema. Left upper arm - There is an abrasion, measures 2.5 cm x 2 cm x 0.1 cm. The wound base is pink granulation tissue. There is no drainage. There a healed are below the measuring tape. Left leg - There is a small pressure injury, measures 1.5 cm x 2.5 cm x 0.1 cm. The wound base is 50% red granulation tissue and 50% yellow slough. The surrounding skin is intact. No drainage. Wound Problem/Plan Assessment: Mr. Peters is an 83 yo male with PMH significant for TIA, A fib, obesity, and HTN ; who presented to the emergency room with left sided weakness after being found on the ground at home (he could have been down for 24-48 hours). He was initially admitted to the hospital for a CVA, and was transferred to [facility] for rehabilitation. He presented to the hospital with multiple area of skin breakdown to the left side of his body and right foot. 1. Left cheek wound. Suspect this is secondary to an abrasion from his fall and being on the floor for around 48 hours. The area with purulent drainage last week, has resolved this week. Wound culture obtained grew e coli. This was not treated with systemic ABX and is improving. Recommend applying ABX ointment and leave open to air. 2. Left LE stage 2 pressure injury. This may represent an injury from the vacuum cord. Recommend applying ABX ointment and a telfa dressing, change daily. 3. Left upper chest and left shoulder wound. Suspect these are abrasions secondary to the fall. Recommend applying ABX ointment to the open area and a telfa dressing, change daily. Could also consider applying a border foam gauze to the area and change every 3 days. Do not recommend applying tegaderm to the area as this has caused skin irritation in the left axilla. 4. CVA with left hemiparesis. Management per primary medicine team. 5. Obesity. BMI ~ 25. 6. Diet. Regular, purred and nectar thick diet. 7. Code Status. DNR. Is Patient a Wound Clinic Patient: No Status and Disposition: Inpatient. Disposition per primary team. Counseling and/or Coordination of Care Minutes: 30 Points of Discussion: TIME SPENT: Time for this wound consultation was 30 minutes and 20 minutes was spent with the patient discussing past medical history, event of the past week; assessing, measuring, and photographing the wounds. Attending: Ayaka Paiz
[2018-11-23] MEDS: Atorvastatin* 10 MG TAB PO SCH (17:00)
--- NOTE | 2018-11-23 18:55 | PN ---
Progress Note Date of Service: 11/23/18 Note: CHAPINCITO MORALES SR was visited. Therapy notes read and reviewed. He was discussed in interdisciplinary team rounds. He does report difficulty sleeping. He was on Klonopin at home. Will stop Ativan and try Klonopin. Will remove wilson tomorrow. Also will order Spiriva for probable COPD. Appreciate wound note Current Medications: Active Medications Generic Name Dose Route Start Last Admin Trade Name Freq PRN Reason Stop Dose Admin Acetaminophen 650 mg 11/18/18 12:20 Tylenol Tab* PO Q6H PRN MILD PAIN or TEMP > 100.4 Albuterol 2 puff 11/21/18 13:52 11/22/18 09:22 Ventolin Hfa Inhaler* INH 2 puff Q6H PRN Administration SOB/WHEEZING Atorvastatin Calcium 10 mg 11/19/18 17:00 11/23/18 17:00 Lipitor* PO 10 mg 1700 INDU Administration Bisacodyl 10 mg 11/18/18 12:20 Dulcolax Supp* [place] DAILY PRN CONSTIPATION Clonazepam 0.5 mg 11/23/18 17:44 Klonopin Tab(*) PO BEDTIME PRN ANXIETY Clopidogrel Bisulfate 75 mg 11/19/18 09:00 11/23/18 09:31 Plavix Tab* PO 75 mg DAILY INDU Administration Docusate Sodium 100 mg 11/18/18 21:00 11/23/18 09:31 Colace Cap* PO 100 mg BID INDU Administration Finasteride 5 mg 11/19/18 09:00 11/23/18 09:31 Proscar Tab* PO 5 mg DAILY INDU Administration Folic Acid 1 mg 11/19/18 09:00 11/23/18 09:31 Folvite Tab* PO 1 mg DAILY INDU Administration Heparin Sodium (Porcine) 5,000 units 11/18/18 14:00 11/23/18 13:10 Heparin Vial(*) SUBCUT 5,000 units Q8HR INDU Administration Hydralazine HCl 10 mg 11/20/18 10:51 11/20/18 23:09 Apresoline Tab* PO 10 mg Q8H PRN Administration Systolic Bp Greater Than: 180 Hydrocortisone 1 applic 11/19/18 21:00 11/23/18 09:30 Hytone Cream 1%* TOPICAL 1 applic BID INDU Administration Losartan Potassium 25 mg 11/21/18 09:00 11/23/18 09:31 Cozaar Tab* PO 25 mg DAILY INDU Administration Magnesium Hydroxide 30 ml 11/18/18 12:20 Milk Of Magnsiabel Liq* PO Q6H PRN CONSTIPATION Melatonin 3 mg 11/18/18 12:32 11/22/18 20:46 Melatonin PO 3 mg BEDTIME PRN Administration SLEEP Pantoprazole Sodium 40 mg 11/19/18 09:00 11/23/18 09:31 Protonix Tab* PO 40 mg DAILY INDU Administration Senna 2 tab 11/18/18 12:20 11/19/18 20:00 Senokot 8.6 Mg Tab* PO 2 tab BEDTIME PRN Administration CONSTIPATION Tiotropium [place] 2 puff 11/24/18 09:00 Spiriva Respimat 2.5 Mcg INH DAILY INDU Vital Signs: Vital Signs Temp Pulse Resp BP Pulse Ox 97.4 F 117 20 150/58 94 11/23/18 17:22 11/23/18 17:22 11/23/18 17:22 11/23/18 17:22 11/23/18 17:22 Exam: GENERAL: Alert, pleasant, no distress HEENT: Left facial droop LUNGS: Clear bilaterally, no wheeze or rales heard HEART: Regular rhythm ABDOMEN: Soft, +BS EXTREMITIES: Decreased tone LUE NEUROLOGIC: A&O. Some trace shoulder shrug on LUE, maybe trace finger flexion and biceps, otherwise no movement seen. Left leg 4/5 SKIN: Abrasion left cheek and chest, left arm Assessment/Plan: 1. 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 Will switch to Eliquis 11/26, per neurology 2. Hypercholesterolemia: Lipitor 3. DVT Prophylaxis: Hepain S/Q 4. Dysphagia: Pureed solids/nectar thick liquids 5. Hypertension: Cozaar. Hydralazine PRN. 6. BPH: Proscar 7. COPD: Albuterol and Spiriva for COPD 8. Advance Directives: Has MOLST. DNR 9. Paroxysmal Atrial fibrillation: Eliquis to start 11/26 per neurology 10. Chronic kidney disease: Follow BUN/Cr 11/23/18 18:56
[2018-11-23] MEDS: Senna TAB 8.6 mg* TAB PO PRN (20:03)
[2018-11-23] MEDS: Melatonin 3 MG TAB PO PRN (20:54)
[2018-11-23] MEDS: clonazePAM TAB(*) 0.5 MG PO PRN (22:09)
[2018-11-24] MEDS: Heparin VIAL(*) 5000 UNITS/ML VIAL (FIVE THOUSAND) SUBCUT SCH ×3 (06:04→21:26)
[2018-11-24] MEDS: SPIRIVA Respimat* (tiotropium) 2.5 mcg/inh Inhaler INH SCH (08:02)
[2018-11-24] MEDS: Losartan TAB* 25 MG PO SCH (08:34)
[2018-11-24] MEDS: Folic Acid TAB* 1 MG PO SCH (08:34)
[2018-11-24] MEDS: Docusate CAP* 100 MG PO SCH ×2 (08:34→19:41)
[2018-11-24] MEDS: Finasteride TAB* 5 MG PO SCH (08:34)
[2018-11-24] MEDS: Pantoprazole TAB * 40 MG TAB PO SCH (08:34)
[2018-11-24] MEDS: Hydrocortisone 1% CREAM* 30 GM TUBE TOPICAL SCH ×2 (08:34→20:47)
[2018-11-24] MEDS: Clopidogrel TAB* 75 MG PO SCH (08:34)
[2018-11-24] MEDS: Atorvastatin* 10 MG TAB PO SCH (17:04)
--- NOTE | 2018-11-24 20:11 | PN ---
Progress Note Date of Service: 11/24/18 Note: HCAPINCITO MORALES SR was visited. Therapy notes read and reviewed. He is breathing a little easier and is off O2. Complains of trouble sleeping. BP creeping up Current Medications: Active Medications Generic Name Dose Route Start Last Admin Trade Name Freq PRN Reason Stop Dose Admin Acetaminophen 650 mg 11/18/18 12:20 Tylenol Tab* PO Q6H PRN MILD PAIN or TEMP > 100.4 Albuterol 2 puff 11/21/18 13:52 11/22/18 09:22 Ventolin Hfa Inhaler* INH 2 puff Q6H PRN Administration SOB/WHEEZING Atorvastatin Calcium 10 mg 11/19/18 17:00 11/24/18 17:04 Lipitor* PO 10 mg 1700 INDU Administration Bisacodyl 10 mg 11/18/18 12:20 Dulcolax Supp* [place] DAILY PRN CONSTIPATION Clonazepam 0.5 mg 11/23/18 17:44 11/23/18 22:09 Klonopin Tab(*) PO 0.5 mg BEDTIME PRN Administration ANXIETY Clopidogrel Bisulfate 75 mg 11/19/18 09:00 11/24/18 08:34 Plavix Tab* PO 75 mg DAILY INDU Administration Docusate Sodium 100 mg 11/18/18 21:00 11/24/18 19:41 Colace Cap* PO Not Given BID INDU Finasteride 5 mg 11/19/18 09:00 11/24/18 08:34 Proscar Tab* PO 5 mg DAILY INDU Administration Folic Acid 1 mg 11/19/18 09:00 11/24/18 08:34 Folvite Tab* PO 1 mg DAILY INDU Administration Heparin Sodium (Porcine) 5,000 units 11/18/18 14:00 11/24/18 15:37 Heparin Vial(*) SUBCUT 5,000 units Q8HR INDU Administration Hydralazine HCl 10 mg 11/20/18 10:51 11/20/18 23:09 Apresoline Tab* PO 10 mg Q8H PRN Administration Systolic Bp Greater Than: 180 Hydrocortisone 1 applic 11/19/18 21:00 11/24/18 08:34 Hytone Cream 1%* TOPICAL 1 applic BID INDU Administration Losartan Potassium 25 mg 11/21/18 09:00 11/24/18 08:34 Cozaar Tab* PO 25 mg DAILY INDU Administration Magnesium Hydroxide 30 ml 11/18/18 12:20 Milk Of Magnesia Liq* PO Q6H PRN CONSTIPATION Melatonin 3 mg 11/18/18 12:32 11/23/18 20:54 Melatonin PO 3 mg BEDTIME PRN Administration SLEEP Pantoprazole Sodium 40 mg 11/19/18 09:00 11/24/18 08:34 Protonix Tab* PO 40 mg DAILY INDU Administration Senna 2 tab 11/18/18 12:20 11/23/18 20:03 Senokot 8.6 Mg Tab* PO 2 tab BEDTIME PRN Administration CONSTIPATION Tiotropium [place] 2 puff 11/24/18 09:00 11/24/18 08:02 Spiriva Respimat 2.5 Mcg INH 2 puff DAILY INDU Administration Vital Signs: Vital Signs Temp Pulse Resp BP Pulse Ox 98.2 F 59 16 171/91 92 11/24/18 16:35 11/24/18 16:35 11/24/18 16:35 11/24/18 16:35 11/24/18 16:35 Exam: GENERAL: Alert, pleasant, no distress HEENT: Left facial droop LUNGS: Clear bilaterally, no wheeze or rales heard HEART: Regular rhythm ABDOMEN: Soft, +BS EXTREMITIES: Decreased tone LUE NEUROLOGIC: A&O. Some shoulder shrug on LUE, 1-2 finger flexion and triceps, otherwise no movement seen. Left leg 4/5 SKIN: Abrasion left cheek and chest, left arm Assessment/Plan: 1. 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 Will switch to Eliquis 11/26, per neurology 2. Hypercholesterolemia: Lipitor 3. DVT Prophylaxis: Hepain S/Q 4. Dysphagia: Pureed solids/nectar thick liquids 5. Hypertension: Cozaar. Hydralazine PRN. May need to increase Cozaar 6. BPH: Proscar 7. COPD: Albuterol and Spiriva for COPD 8. Advance Directives: Has MOLST. DNR 9. Paroxysmal Atrial fibrillation: Eliquis to start 11/26 per neurology 10. Chronic kidney disease: Follow BUN/Cr 11/24/18 20:12
[2018-11-24] MEDS: Melatonin 3 MG TAB PO PRN (20:46)
[2018-11-24] MEDS: clonazePAM TAB(*) 0.5 MG PO PRN (21:50)
[2018-11-24] MEDS: Albuterol HFA INHALER* 8 gm MDI INH PRN (22:23)
[2018-11-25] MEDS: Heparin VIAL(*) 5000 UNITS/ML VIAL (FIVE THOUSAND) SUBCUT SCH ×3 (05:38→20:45)
[2018-11-25] MEDS: Docusate CAP* 100 MG PO SCH ×2 (08:48→20:45)
[2018-11-25] MEDS: Pantoprazole TAB * 40 MG TAB PO SCH (08:48)
[2018-11-25] MEDS: Losartan TAB* 25 MG PO SCH (08:48)
[2018-11-25] MEDS: Folic Acid TAB* 1 MG PO SCH (08:48)
[2018-11-25] MEDS: Clopidogrel TAB* 75 MG PO SCH (08:48)
[2018-11-25] MEDS: Finasteride TAB* 5 MG PO SCH (08:48)
[2018-11-25] MEDS: SPIRIVA Respimat* (tiotropium) 2.5 mcg/inh Inhaler INH SCH (08:50)
[2018-11-25] MEDS: Hydrocortisone 1% CREAM* 30 GM TUBE TOPICAL SCH ×2 (09:55→21:07)
[2018-11-25 16:38] LABS: Urine Appearance Cloudy; Urine Bacteria Absent (Absent); Urine Bilirubin Negative (Negative); Urine Blood 2+ (Negative); Urine Color Yellow; Urine Glucose Negative (Negative); Urine Ketones Negative (Negative); Urine Nitrite Negative (Negative); Urine Protein 2+(100 mg/dL) (Negative); Urine Red Blood Cell 3+(>10/hpf) (Absent); Urine Specific Gravity 1.015 (1.010-1.030); Urine Squamous Epithelial Cell Present (Absent); Urine Urobilinogen Negative (Negative); Urine White Blood Cell 3+(>20/hpf) (Absent)
[2018-11-25] MEDS: Atorvastatin* 10 MG TAB PO SCH (17:49)
--- NOTE | 2018-11-25 19:49 | PN ---
Progress Note Date of Service: 11/25/18 Note: CHAPINCITO MORALES SR was visited. Therapy notes read and reviewed. He had some burning with urination and a UA was sent which looked bloody. Await cultures. He is breathing ok. I spoke with neurology; CT scan of head tomorrow, and if negative, will start Eliquis 11/27. Will check BUN/Cr Current Medications: Active Medications Generic Name Dose Route Start Last Admin Trade Name Freq PRN Reason Stop Dose Admin Acetaminophen 650 mg 11/18/18 12:20 Tylenol Tab* PO Q6H PRN MILD PAIN or TEMP > 100.4 Albuterol 2 puff 11/21/18 13:52 11/24/18 22:23 Ventolin Hfa Inhaler* INH 2 puff Q6H PRN Administration SOB/WHEEZING Atorvastatin Calcium 10 mg 11/19/18 17:00 11/25/18 17:49 Lipitor* PO 10 mg 1700 INDU Administration Bisacodyl 10 mg 11/18/18 12:20 Dulcolax Supp* [place] DAILY PRN CONSTIPATION Clonazepam 0.5 mg 11/23/18 17:44 11/24/18 21:50 Klonopin Tab(*) PO 0.5 mg BEDTIME PRN Administration ANXIETY Clopidogrel Bisulfate 75 mg 11/19/18 09:00 11/25/18 08:48 Plavix Tab* PO 75 mg DAILY INDU Administration Docusate Sodium 100 mg 11/18/18 21:00 11/25/18 08:48 Colace Cap* PO 100 mg BID INDU Administration Finasteride 5 mg 11/19/18 09:00 11/25/18 08:48 Proscar Tab* PO 5 mg DAILY INDU Administration Folic Acid 1 mg 11/19/18 09:00 11/25/18 08:48 Folvite Tab* PO 1 mg DAILY INDU Administration Heparin Sodium (Porcine) 5,000 units 11/18/18 14:00 11/25/18 16:12 Heparin Vial(*) SUBCUT 5,000 units Q8HR INDU Administration Hydralazine HCl 10 mg 11/20/18 10:51 11/20/18 23:09 Apresoline Tab* PO 10 mg Q8H PRN Administration Systolic Bp Greater Than: 180 Hydrocortisone 1 applic 11/19/18 21:00 11/25/18 09:55 Hytone Cream 1%* TOPICAL Not Given BID INDU Losartan Potassium 25 mg 11/21/18 09:00 11/25/18 08:48 Cozaar Tab* PO 25 mg DAILY INDU Administration Magnesium Hydroxide 30 ml 11/18/18 12:20 Milk Of Magnisabel Liq* PO Q6H PRN CONSTIPATION Melatonin 3 mg 11/18/18 12:32 11/24/18 20:46 Melatonin PO 3 mg BEDTIME PRN Administration SLEEP Pantoprazole Sodium 40 mg 11/19/18 09:00 11/25/18 08:48 Protonix Tab* PO 40 mg DAILY INDU Administration Senna 2 tab 11/18/18 12:20 11/23/18 20:03 Senokot 8.6 Mg Tab* PO 2 tab BEDTIME PRN Administration CONSTIPATION Tiotropium [place] 2 puff 11/24/18 09:00 11/25/18 08:50 Spiriva Respimat 2.5 Mcg INH 2 puff DAILY INDU Administration Vital Signs: Vital Signs Temp Pulse Resp BP Pulse Ox 98.3 F 71 20 134/84 97 11/25/18 16:26 11/25/18 16:26 11/25/18 16:26 11/25/18 16:26 11/25/18 16:26 Lab Results: Laboratory Results - last 24 hr 11/25/18 15:50 Urine Color Yellow Urine Appearance Cloudy Urine pH 9.0 Ur Specific [place] 1.015 Urine Protein 2+(100 mg/dl) A Urine Ketones Negative Urine Blood 2+ A Urine Nitrate Negative Urine Bilirubin Negative Urine Urobilinogen Negative Ur Leukocyte Esterase 1+ A Urine WBC (Auto) 3+(>20/hpf) A Urine RBC (Auto) 3+(>10/hpf) A Ur Squamous Epith Cells Present A Urine Bacteria Absent Urine Glucose Negative Exam: GENERAL: Alert, pleasant, no distress HEENT: Left facial droop LUNGS: Clear bilaterally, no wheeze or rales heard HEART: Regular rhythm ABDOMEN: Soft, +BS EXTREMITIES: Decreased tone LUE NEUROLOGIC: A&O. Some shoulder shrug on LUE, 1-2 finger flexion and triceps, otherwise no movement seen. Left leg 4/5 SKIN: Abrasion left cheek and chest, left arm Assessment/Plan: 1. 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 CT scan tomorrow; if negative will switch to Eliquis 11/27, per neurology 2. Hypercholesterolemia: Lipitor 3. DVT Prophylaxis: Hepain S/Q 4. Dysphagia: Pureed solids/nectar thick liquids 5. Hypertension: Cozaar. Hydralazine PRN. May need to increase Cozaar 6. BPH: Proscar 7. COPD: Albuterol and Spiriva for COPD 8. Advance Directives: Has MOLST. DNR 9. Paroxysmal Atrial fibrillation: Eliquis to start 11/[address] scan of brain is negative for blood, per neurology 10. Chronic kidney disease: Follow BUN/Cr 11/25/18 19:50
[2018-11-25] MEDS: clonazePAM TAB(*) 0.5 MG PO PRN (21:07)
[2018-11-26 04:55] LABS: ABS Basophils 0.1 10^3/ul (0-0.2); ABS Eosinophils 0.2 10^3/ul (0-0.6); ABS Lymphocytes 1.4 10^3/ul (1.0-4.8); ABS Monocytes 0.9 10^3/ul (0-0.8); Eosinophil % 2.1 %; Hematocrit 41 % (42-52); Hemoglobin 13.9 g/dL (14.0-18.0); Lymphocyte % 16.7 %; Mean Corpuscular HGB Conc 34 g/dL (31-36); Mean Corpuscular Hemoglobin 34 pg (27-31); Mean Corpuscular Volume 98 fL (80-94); Mean Platelet Volume 10.1 fL (7.4-10.4); Platelet Count 157 10^3/uL (150-450); Red Blood Count 4.13 10^6 /uL (4.18-5.48); Red Cell Distribution Width 13 % (10-15); White Blood Count 8.6 10^3/uL (3.5-10.8)
[2018-11-26 05:15] LABS: Albumin 3.2 g/dL (3.2-5.2); Albumin/Globulin Ratio 1.2 (1-3); BUN/Creatinine Ratio 16.7 (8-20); Calcium 9.1 mg/dL (8.6-10.3); EGFR African American 70.1 (>60); Globulin 2.6 g/dL (2-4); Total Bilirubin 0.8 mg/dL (0.2-1.0); Total Protein 5.8 g/dL (6.4-8.9)
[2018-11-26] MEDS: Heparin VIAL(*) 5000 UNITS/ML VIAL (FIVE THOUSAND) SUBCUT SCH ×3 (05:37→22:03)
[2018-11-26] MEDS: Folic Acid TAB* 1 MG PO SCH (09:07)
[2018-11-26] MEDS: Losartan TAB* 25 MG PO SCH (09:07)
[2018-11-26] MEDS: Pantoprazole TAB * 40 MG TAB PO SCH (09:07)
[2018-11-26] MEDS: Finasteride TAB* 5 MG PO SCH (09:07)
[2018-11-26] MEDS: Docusate CAP* 100 MG PO SCH ×2 (09:07→20:11)
[2018-11-26] MEDS: Clopidogrel TAB* 75 MG PO SCH (09:07)
[2018-11-26] MEDS: Albuterol HFA INHALER* 8 gm MDI INH PRN (10:30)
[2018-11-26] MEDS: SPIRIVA Respimat* (tiotropium) 2.5 mcg/inh Inhaler INH SCH (10:30)
--- NOTE | 2018-11-26 10:47 | PN ---
Progress Note Date of Service: 11/26/18 Note: CHAPINCITO MORALES was visited. Nursing and therapy notes read and reviewed. Restless last night with urinary urgency and frequency. Straight cathed with relief and had 250cc out. Has had prostate issues. No chest pain, shortness of breath or abdominal pain. Current Medications: Active Medications Generic Name Dose Route Start Last Admin Trade Name Freq PRN Reason Stop Dose Admin Acetaminophen 650 mg 11/18/18 12:20 Tylenol Tab* PO Q6H PRN MILD PAIN or TEMP > 100.4 Albuterol 2 puff 11/21/18 13:52 11/26/18 10:30 Ventolin Hfa Inhaler* INH 2 puff Q6H PRN Administration SOB/WHEEZING Atorvastatin Calcium 10 mg 11/19/18 17:00 11/25/18 17:49 Lipitor* PO 10 mg 1700 INDU Administration Bisacodyl 10 mg 11/18/18 12:20 Dulcolax Supp* [place] DAILY PRN CONSTIPATION Clonazepam 0.5 mg 11/23/18 17:44 11/25/18 21:07 Klonopin Tab(*) PO 0.5 mg BEDTIME PRN Administration ANXIETY Clopidogrel Bisulfate 75 mg 11/19/18 09:00 11/26/18 09:07 Plavix Tab* PO 75 mg DAILY INDU Administration Docusate Sodium 100 mg 11/18/18 21:00 11/26/18 09:07 Colace Cap* PO 100 mg BID INDU Administration Finasteride 5 mg 11/19/18 09:00 11/26/18 09:07 Proscar Tab* PO 5 mg DAILY INDU Administration Folic Acid 1 mg 11/19/18 09:00 11/26/18 09:07 Folvite Tab* PO 1 mg DAILY INDU Administration Heparin Sodium (Porcine) 5,000 units 11/18/18 14:00 11/26/18 05:37 Heparin Vial(*) SUBCUT 5,000 units Q8HR INDU Administration Hydralazine HCl 10 mg 11/20/18 10:51 11/20/18 23:09 Apresoline Tab* PO 10 mg Q8H PRN Administration Systolic Bp Greater Than: 180 Hydrocortisone 1 applic 11/19/18 21:00 11/25/18 21:07 Hytone Cream 1%* TOPICAL 1 applic BID INDU Administration Losartan Potassium 25 mg 11/21/18 09:00 11/26/18 09:07 Cozaar Tab* PO 25 mg DAILY INDU Administration Magnesium Hydroxide 30 ml 11/18/18 12:20 Milk Of Magnesia Liq* PO Q6H PRN CONSTIPATION Melatonin 3 mg 11/18/18 12:32 11/24/18 20:46 Melatonin PO 3 mg BEDTIME PRN Administration SLEEP Pantoprazole Sodium 40 mg 11/19/18 09:00 11/26/18 09:07 Protonix Tab* PO 40 mg DAILY INDU Administration Senna 2 tab 11/18/18 12:20 11/23/18 20:03 Senokot 8.6 Mg Tab* PO 2 tab BEDTIME PRN Administration CONSTIPATION Tiotropium [place] 2 puff 11/24/18 09:00 11/26/18 10:30 Spiriva Respimat 2.5 Mcg INH 2 puff DAILY INDU Administration Vital Signs: Vital Signs Temp Pulse Resp BP Pulse Ox 97.9 F 69 16 165/81 96 11/26/18 05:30 11/26/18 10:33 11/26/18 10:33 11/26/18 05:30 11/26/18 10:33 Lab Results: Laboratory Results - last 24 hr 11/25/18 11/26/18 11/26/18 15:50 04:42 04:42 WBC 8.6 RBC 4.13 L Hgb 13.9 L Hct 41 L MCV 98 H MCH 34 H MCHC 34 RDW 13 Plt Count 157 MPV 10.1 Neut % (Auto) 70.2 Lymph % (Auto) 16.7 [place] % (Auto) 10.4 Eos % (Auto) 2.1 Baso % (Auto) 0.6 Absolute Neuts (auto) 6.0 Absolute Lymphs (auto) 1.4 Absolute Monos (auto) 0.9 H Absolute Eos (auto) 0.2 Absolute Basos (auto) 0.1 Absolute Nucleated RBC 0.0 Nucleated RBC % 0.0 Sodium 138 Potassium 4.0 Chloride 103 Carbon Dioxide 28 Anion Gap 7 BUN 20 Creatinine 1.20 H Est GFR ( Amer) 70.1 Est GFR (Non-Af Amer) 58.0 BUN/Creatinine Ratio 16.7 Glucose 124 H Calcium 9.1 Total Bilirubin 0.80 AST 28 ALT 32 Alkaline Phosphatase 56 Total Protein 5.8 L Albumin 3.2 Globulin 2.6 Albumin/Globulin Ratio 1.2 Urine Color Yellow Urine Appearance Cloudy Urine pH 9.0 Ur Specific [place] 1.015 Urine Protein 2+(100 mg/dl) A Urine Ketones Negative Urine Blood 2+ A Urine Nitrate Negative Urine Bilirubin Negative Urine Urobilinogen Negative Ur Leukocyte Esterase 1+ A Urine WBC (Auto) 3+(>20/hpf) A Urine RBC (Auto) 3+(>10/hpf) A Ur Squamous Epith Cells Present A Urine Bacteria Absent Urine Glucose Negative Exam: GENERAL: alert and appropriate HEENT: Left facial droop LUNGS: Clear to auscultation bilaterally HEART: Regular rate and rhythm ABDOMEN: Soft, + bowel sounds, non-tender, non-distended EXTREMITIES: Decreased tone LUE NEUROLOGIC: RUE and RLE 5/5 motor throughout. Left motor bic 3, tri 2-3, finger flexion 3, hip flex 4, knee ext 4, DF 4. Sensation intact. Assessment/Plan: 1. 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 Plavix. CT scan today; if negative will switch to Eliquis 11/27, per neurology 2. Hypercholesterolemia: Lipitor 3. DVT Prophylaxis: Hepain S/Q. D/c when starts eliquis 4. Dysphagia: Pureed solids/nectar thick liquids 5. Hypertension: Cozaar. Hydralazine PRN. May need to increase Cozaar 6. BPH: Proscar, He thinks he was on 2 meds for this. I will try to call his urologist in [place]. 7. COPD: Albuterol and Spiriva for COPD 8. Advance Directives: Has MOLST. DNR 9. Paroxysmal Atrial fibrillation: Eliquis to start 11/[address] scan of brain is negative for blood, per neurology 10. Chronic kidney disease: BUN/Cr stable. 11. Restless leg syndrome: took pramipexole at night. Restart with melatonin also used at home. 11/26/18 10:58
[2018-11-26] MEDS: Hydrocortisone 1% CREAM* 30 GM TUBE TOPICAL SCH ×3 (14:43→20:28)
[2018-11-26] MEDS: Atorvastatin* 10 MG TAB PO SCH (17:40)
[2018-11-26] MEDS: Melatonin 3 MG TAB PO SCH (20:11)
[2018-11-26] MEDS: Tamsulosin CAP* 0.4 MG PO SCH (20:11)
[2018-11-26] MEDS: Nitrofurantoin Macrocrystals* 50 MG CAP PO SCH (20:13)
[2018-11-26] MEDS: Pramipexole TAB* 0.125 MG PO SCH (20:22)
[2018-11-26] MEDS ORDERED: Nitrofurantoin Macrocrystals* 50 MG CAP PO SCH (21:00)
[2018-11-26] MEDS: clonazePAM TAB(*) 0.5 MG PO PRN (22:38)
[2018-11-27] MEDS: Hydrocortisone 1% CREAM* 30 GM TUBE TOPICAL SCH ×3 (00:50→19:37)
[2018-11-27] MEDS: Albuterol HFA INHALER* 8 gm MDI INH PRN ×2 (04:19→19:36)
[2018-11-27] MEDS: Heparin VIAL(*) 5000 UNITS/ML VIAL (FIVE THOUSAND) SUBCUT SCH ×3 (06:21→22:45)
[2018-11-27] MEDS: SPIRIVA Respimat* (tiotropium) 2.5 mcg/inh Inhaler INH SCH (08:18)
[2018-11-27] MEDS: Docusate CAP* 100 MG PO SCH ×2 (09:54→21:38)
[2018-11-27] MEDS: Pantoprazole TAB * 40 MG TAB PO SCH (09:54)
[2018-11-27] MEDS: Nitrofurantoin Macrocrystals* 50 MG CAP PO SCH ×3 (09:55→21:44)
[2018-11-27] MEDS: Folic Acid TAB* 1 MG PO SCH (09:56)
[2018-11-27] MEDS: Losartan TAB* 25 MG PO SCH (09:56)
[2018-11-27] MEDS: Clopidogrel TAB* 75 MG PO SCH (09:56)
[2018-11-27] MEDS: Finasteride TAB* 5 MG PO SCH (09:57)
--- NOTE | 2018-11-27 11:37 | PN ---
Progress Note Date of Service: 11/27/18 Note: CHAPINCITO MORALES was visited. Nursing and therapy notes read and reviewed. Started nitrofurantoin last night for UTI. This morning was coughing after pills. He feels like urination was better last night, but nursing still reports some urgency. No chest pain, shortness of breath or abdominal pain. Current Medications: Active Medications Generic Name Dose Route Start Last Admin Trade Name Freq PRN Reason Stop Dose Admin Acetaminophen 650 mg 11/18/18 12:20 Tylenol Tab* PO Q6H PRN MILD PAIN or TEMP > 100.4 Albuterol 2 puff 11/21/18 13:52 11/27/18 04:19 Ventolin Hfa Inhaler* INH 2 puff Q6H PRN Administration SOB/WHEEZING Atorvastatin Calcium 10 mg 11/19/18 17:00 11/26/18 17:40 Lipitor* PO 10 mg 1700 INDU Administration Bisacodyl 10 mg 11/18/18 12:20 Dulcolax Supp* IN DAILY PRN CONSTIPATION Clonazepam 0.5 mg 11/23/18 17:44 11/26/18 22:38 Klonopin Tab(*) PO 0.5 mg BEDTIME PRN Administration ANXIETY Clopidogrel Bisulfate 75 mg 11/19/18 09:00 11/27/18 09:56 Plavix Tab* PO 75 mg DAILY INDU Administration Docusate Sodium 100 mg 11/18/18 21:00 11/27/18 09:54 Colace Cap* PO 100 mg BID INDU Administration Finasteride 5 mg 11/19/18 09:00 11/27/18 09:57 Proscar Tab* PO 5 mg DAILY INDU Administration Folic Acid 1 mg 11/19/18 09:00 11/27/18 09:56 Folvite Tab* PO 1 mg DAILY INDU Administration Heparin Sodium (Porcine) 5,000 units 11/18/18 14:00 11/27/18 06:21 Heparin Vial(*) SUBCUT 5,000 units Q8HR INDU Administration Hydralazine HCl 10 mg 11/20/18 10:51 11/20/18 23:09 Apresoline Tab* PO 10 mg Q8H PRN Administration Systolic Bp Greater Than: 180 Hydrocortisone 1 applic 11/19/18 21:00 11/27/18 09:57 Hytone Cream 1%* TOPICAL 1 applic BID INDU Administration Losartan Potassium 25 mg 11/21/18 09:00 11/27/18 09:56 Cozaar Tab* PO 25 mg DAILY INDU Administration Magnesium Hydroxide 30 ml 11/18/18 12:20 Milk Of Magnesia Liq* PO Q6H PRN CONSTIPATION Melatonin 3 mg 11/26/18 21:00 11/26/18 20:11 Melatonin PO 3 mg BEDTIME INDU Administration Nitrofurantoin Macrocrystals 50 mg 11/26/18 21:00 11/27/18 09:55 Macrodantin* PO 50 mg TID INDU Administration Pantoprazole Sodium 40 mg 11/19/18 09:00 11/27/18 09:54 Protonix Tab* PO 40 mg DAILY INDU Administration Pramipexole Dihydrochloride 0.25 mg 11/26/18 21:00 11/26/18 20:22 Mirapex Tab* PO 0.25 mg BEDTIME INDU Administration Senna 2 tab 11/18/18 12:20 11/23/18 20:03 Senokot 8.6 Mg Tab* PO 2 tab BEDTIME PRN Administration CONSTIPATION Tamsulosin HCl 0.4 mg 11/26/18 21:00 11/26/18 20:11 Flomax Cap* PO 0.4 mg BEDTIME INDU Administration Tiotropium [place] 2 puff 11/24/18 09:00 11/27/18 08:18 Spiriva Respimat 2.5 Mcg INH 2 puff DAILY INDU Administration Vital Signs: Vital Signs Temp Pulse Resp BP Pulse Ox 97.1 F 81 18 170/64 96 11/27/18 04:37 11/27/18 08:20 11/27/18 08:20 11/27/18 04:37 11/27/18 08:20 Exam: GENERAL: alert and appropriate LUNGS: Clear to auscultation bilaterally HEART: Regular rate and rhythm ABDOMEN: Soft, + bowel sounds, non-tender, non-distended EXTREMITIES: Decreased tone LUE NEUROLOGIC: Left facial droop. RUE and RLE 5/5 motor throughout. Left motor bic 3, tri 2-3, wrist 0, finger flexion 3, hip flex 4, knee ext 4, DF 4. Sensation intact. CT Head wo contrast 11/26/18 showed gyriform hyperdensity in area of right frontal lobe where he had prior infarct. This is likely expected hemorrhage. Urine culture enterococcus sensitive to nitrofurantoin. Assessment/Plan: 1. 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 CTH with some area of hemorrhage. Hold off on Eliquis for now. I spoke to neurologist who will f/u today. 2. Hypercholesterolemia: Lipitor 3. DVT Prophylaxis: Hepain S/Q. 4. Dysphagia: Pureed solids/nectar thick liquids 5. Hypertension: Cozaar. Hydralazine PRN. Increase Cozaar to 50mg qday. Give additional 25mg today. 6. BPH: Proscar, He thinks he was on 2 meds for this. I will try to call his urologist in [place]. 7. COPD: Albuterol and Spiriva for COPD 8. Advance Directives: Has MOLST. DNR 9. Paroxysmal Atrial fibrillation: Eliquis not started due to some hemorrhage on CT 11/26. 10. Chronic kidney disease: BUN/Cr stable. 11. Restless leg syndrome: pramipexole and melatonin at night. 11/27/18 11:39
[2018-11-27] MEDS ORDERED: Losartan TAB* 25 MG PO ONE (11:40)
--- NOTE | 2018-11-27 14:00 | CONS ---
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 Montaño. LOCATION: He is in physical medicine rehab unit, bed 252. CHIEF COMPLAINT: Right hemisphere stroke. INTERVAL HISTORY: Brandon Peters is an 83-year-old man seen by Dr. Santos originally on 11/15/18 [address] stu tracy presented with a left hemiparesis. His NIH score was 21 and he was outside of the tPA window. The re was no large vessel occlusion on CT angiography. He was started on Plavix and evaluated further. He was found to be in atrial fibrillation. He has a history of prior atrial fibrillation, but was n ot on anticoagulation. He has a history of alcohol abuse disorder as well. Since admission, he has done well and is still in the physical medicine rehab unit. [facility] without contrast to make sure there was no hemorrhagic transformation and if not, start him on an anticoagulant. He had a CT scan of the brain, which I reviewed. It was interpreted by Dr. Alford of Radiology as vanessa wing some hyperdensity in the cortex and the rim around the right frontal infarction. It was felt to be likely from "expected microhemorrhage." I reviewed the images personally. There are some specks of hyperintensity, but it is really not much more than the left frontal area. There is certainly no organized hematoma or clearcut areas of macrohemorrhages. Currently, Mr. Peters feels he is doing very well. He is encouraged by the improvement in strength of his left leg in particular. MEDICATIONS: Medications are reviewed and he is currently on: 1. Plavix 75 mg p.o. daily. 2. Colace 100 mg p.o. b.i.d. 3. Heparin subcutaneous 5000 units every 8 hours. 4. Cozaar 50 mg p.o. daily. 5. Folic acid. 6. Finasteride. PHYSICAL EXAM: On limited examination, his temperature is 97.1, blood pressure 170/64, heart rates i n the 80s. He has good strength in his right side. He briskly raises up his left leg to show me his improvement. He has central pattern left facial weakness. Speech is minimally dysarthric. IMPRESSION AND PLAN: I recommend going ahead with the anticoagulation. There is subtlest indication of microhemorrhages, but nothing that should preclude anticoagulation. His risk of recurrent stroke off anticoagulation exceeds any risk of hemorrhage. I have talked to Mr. Peters and explained the ris ks and he is agreeable to proceeding with anticoagulation. [id number]/[facility] #: [id number]
[2018-11-27] MEDS: Atorvastatin* 10 MG TAB PO SCH (17:03)
[2018-11-27] MEDS: Melatonin 3 MG TAB PO SCH (21:38)
[2018-11-27] MEDS: Senna TAB 8.6 mg* TAB PO PRN (21:38)
[2018-11-27] MEDS: Tamsulosin CAP* 0.4 MG PO SCH (21:38)
[2018-11-27] MEDS: Pramipexole TAB* 0.125 MG PO SCH (21:44)
[2018-11-27] MEDS: clonazePAM TAB(*) 0.5 MG PO PRN (22:47)
[2018-11-28] MEDS: Albuterol HFA INHALER* 8 gm MDI INH PRN ×3 (02:22→21:00)
[2018-11-28] MEDS: SPIRIVA Respimat* (tiotropium) 2.5 mcg/inh Inhaler INH SCH (07:49)
[2018-11-28] MEDS: Losartan TAB* 25 MG PO SCH (10:00)
[2018-11-28] MEDS: Apixaban* 2.5 MG TAB PO SCH ×2 (10:02→20:55)
[2018-11-28] MEDS: Docusate CAP* 100 MG PO SCH ×2 (10:04→20:53)
[2018-11-28] MEDS: Finasteride TAB* 5 MG PO SCH (10:05)
[2018-11-28] MEDS: Hydrocortisone 1% CREAM* 30 GM TUBE TOPICAL SCH ×3 (10:05→21:01)
[2018-11-28] MEDS: Pantoprazole TAB * 40 MG TAB PO SCH (10:05)
--- NOTE | 2018-11-28 10:46 | PN ---
Progress Note Date of Service: 11/28/18 Note: CHAPINCITO MORALES SR was visited. Nursing and therapy notes read and reviewed. Nurse notes rash on back present since last week was a little worse yesterday, but better today. + itchy. No chest pain, shortness of breath or abdominal pain. Seen by Dr. Peck yesterday and started on eliquis today. Had 2 large incontinent urinations overnight with no residual in bladder. Still has some small voids also. Current Medications: Active Medications Generic Name Dose Route Start Last Admin Trade Name Freq PRN Reason Stop Dose Admin Acetaminophen 650 mg 11/18/18 12:20 Tylenol Tab* PO Q6H PRN MILD PAIN or TEMP > 100.4 Albuterol 2 puff 11/21/18 13:52 11/28/18 02:22 Ventolin Hfa Inhaler* INH 2 puff Q6H PRN Administration SOB/WHEEZING Apixaban 2.5 mg 11/28/18 09:00 Eliquis* PO BID INDU Atorvastatin Calcium 10 mg 11/19/18 17:00 11/27/18 17:03 Lipitor* PO 10 mg 1700 INDU Administration Bisacodyl 10 mg 11/18/18 12:20 Dulcolax Supp* [place] DAILY PRN CONSTIPATION Clonazepam 0.5 mg 11/23/18 17:44 11/27/18 22:47 Klonopin Tab(*) PO 0.5 mg BEDTIME PRN Administration ANXIETY Docusate Sodium 100 mg 11/18/18 21:00 11/27/18 21:38 Colace Cap* PO 100 mg BID INDU Administration Finasteride 5 mg 11/19/18 09:00 11/27/18 09:57 Proscar Tab* PO 5 mg DAILY INDU Administration Folic Acid 1 mg 11/19/18 09:00 11/27/18 09:56 Folvite Tab* PO 1 mg DAILY INDU Administration Hydralazine HCl 10 mg 11/20/18 10:51 11/20/18 23:09 Apresoline Tab* PO 10 mg Q8H PRN Administration Systolic Bp Greater Than: 180 Hydrocortisone 1 applic 11/19/18 21:00 11/27/18 19:37 Hytone Cream 1%* TOPICAL 1 applic BID INDU Administration Losartan Potassium 50 mg 11/28/18 09:00 Cozaar Tab* PO DAILY INDU Magnesium Hydroxide 30 ml 08/22/19 12:20 Milk Of Magnesia Liq* PO Q6H PRN CONSTIPATION Melatonin 3 mg 11/26/18 21:00 11/27/18 21:38 Melatonin PO 3 mg BEDTIME INDU Administration Nitrofurantoin Macrocrystals 50 mg 11/26/18 21:00 11/27/18 21:44 Macrodantin* PO 50 mg TID INDU Administration Pantoprazole Sodium 40 mg 11/19/18 09:00 11/27/18 09:54 Protonix Tab* PO 40 mg DAILY INDU Administration Pramipexole Dihydrochloride 0.25 mg 11/26/18 21:00 11/27/18 21:44 Mirapex Tab* PO 0.25 mg BEDTIME INDU Administration Senna 2 tab 11/18/18 12:20 11/27/18 21:38 Senokot 8.6 Mg Tab* PO 2 tab BEDTIME PRN Administration CONSTIPATION Tamsulosin HCl 0.4 mg 11/26/18 21:00 11/27/18 21:38 Flomax Cap* PO 0.4 mg BEDTIME INDU Administration Tiotropium [place] 2 puff 11/24/18 09:00 11/28/18 07:49 Spiriva Respimat 2.5 Mcg INH 2 puff DAILY INDU Administration Vital Signs: Vital Signs Temp Pulse Resp BP Pulse Ox 98.4 F 86 16 145/71 94 11/28/18 06:07 11/28/18 07:50 11/28/18 07:50 11/28/18 06:07 11/28/18 07:50 Exam: GENERAL: alert and appropriate LUNGS: Clear to auscultation bilaterally HEART: Regular rate and rhythm ABDOMEN: Soft, + bowel sounds, non-tender, non-distended EXTREMITIES: Decreased tone LUE NEUROLOGIC: Left facial droop. RUE and RLE 5/5 motor throughout. Left motor bic 2, tri 2-3, wrist 0, finger flexion 3, hip flex 4, knee ext 4, DF 4. Sensation intact. SKIN: macular papular rash on back only. Evaluated with nurse who noted it last week prior to using antibiotic. Was more raised and red yesterday compared to today. Left chest abrasion looks clean with new skin. Dressing not reapplied. Small eschars on left cheek and left scalp. Assessment/Plan: 1. 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 [facility] on 11/[address] Peck and seen by him yesterday. Microhemorrhage area not felt to be contraindication for anticoagulation. Plavix d/c'd and started eliquis this morning 2.5mg bid. 2. Hypercholesterolemia: Lipitor 3. DVT Prophylaxis: eliquis 4. Dysphagia: Pureed solids/nectar thick liquids 5. Hypertension: Hydralazine PRN. Increased Cozaar to 50mg qday on 11/27. 6. BPH: Proscar and flomax per home urologist 7. COPD: Albuterol and Spiriva for COPD 8. Advance Directives: Has MOLST. DNR 9. Paroxysmal Atrial fibrillation: Eliquis 10. Chronic kidney disease: BUN/Cr stable. 11. Restless leg syndrome: pramipexole and melatonin at night. 12. UTI: Nitrofurantoin day 05/06. 13. Rash on back: allow hydrocortisone qid prn. Monitor. 11/28/18 10:51
[2018-11-28] MEDS: Folic Acid TAB* 1 MG PO SCH (10:51)
[2018-11-28] MEDS: Nitrofurantoin Macrocrystals* 50 MG CAP PO SCH ×3 (10:56→20:55)
[2018-11-28] MEDS: Atorvastatin* 10 MG TAB PO SCH (17:17)
[2018-11-28] MEDS: Pramipexole TAB* 0.125 MG PO SCH (20:54)
[2018-11-28] MEDS: Tamsulosin CAP* 0.4 MG PO SCH (20:54)
[2018-11-28] MEDS: Melatonin 3 MG TAB PO SCH (20:54)
[2018-11-28] MEDS: clonazePAM TAB(*) 0.5 MG PO PRN (22:29)
[2018-11-29] MEDS: SPIRIVA Respimat* (tiotropium) 2.5 mcg/inh Inhaler INH SCH (07:44)
[2018-11-29] MEDS: Docusate CAP* 100 MG PO SCH ×2 (07:58→21:29)
[2018-11-29] MEDS: Losartan TAB* 25 MG PO SCH (07:58)
[2018-11-29] MEDS: Finasteride TAB* 5 MG PO SCH (07:58)
[2018-11-29] MEDS: Nitrofurantoin Macrocrystals* 50 MG CAP PO SCH ×3 (07:58→21:29)
[2018-11-29] MEDS: Apixaban* 2.5 MG TAB PO SCH ×2 (07:58→21:29)
[2018-11-29] MEDS: Folic Acid TAB* 1 MG PO SCH (07:58)
[2018-11-29] MEDS: Pantoprazole TAB * 40 MG TAB PO SCH (07:59)
[2018-11-29] MEDS: Hydrocortisone 1% CREAM* 30 GM TUBE TOPICAL SCH ×4 (08:30→21:30)
--- NOTE | 2018-11-29 10:20 | PN ---
Progress Note Date of Service: 11/29/18 Note: CHAPINCITO MORALES SR was visited. Nursing notes read and reviewed. PVRs have been 0. He is no longer having any retention and is much more comfortable. No chest pain, shortness of breath or abdominal pain. Current Medications: Active Medications Generic Name Dose Route Start Last Admin Trade Name Freq PRN Reason Stop Dose Admin Acetaminophen 650 mg 11/18/18 12:20 Tylenol Tab* PO Q6H PRN MILD PAIN or TEMP > 100.4 Albuterol 2 puff 11/21/18 13:52 11/28/18 21:00 Ventolin Hfa Inhaler* INH 2 puff Q6H PRN Administration SOB/WHEEZING Apixaban 2.5 mg 11/28/18 09:00 11/29/18 07:58 Eliquis* PO 2.5 mg BID INDU Administration Atorvastatin Calcium 10 mg 11/19/18 17:00 11/28/18 17:17 Lipitor* PO 10 mg 1700 INDU Administration Bisacodyl 10 mg 11/18/18 12:20 Dulcolax Supp* ME DAILY PRN CONSTIPATION Clonazepam 0.5 mg 11/23/18 17:44 11/28/18 22:29 Klonopin Tab(*) PO 0.5 mg BEDTIME PRN Administration ANXIETY Docusate Sodium 100 mg 11/18/18 21:00 11/29/18 07:58 Colace Cap* PO 100 mg BID INDU Administration Finasteride 5 mg 11/19/18 09:00 11/29/18 07:58 Proscar Tab* PO 5 mg DAILY INDU Administration Folic Acid 1 mg 11/19/18 09:00 11/29/18 07:58 Folvite Tab* PO 1 mg DAILY INDU Administration Hydralazine HCl 10 mg 11/20/18 10:51 11/20/18 23:09 Apresoline Tab* PO 10 mg Q8H PRN Administration Systolic Bp Greater Than: 180 Hydrocortisone 1 applic 11/29/18 09:00 Hytone Cream 1%* TOPICAL QID INDU Losartan Potassium 50 mg 11/28/18 09:00 11/29/18 07:58 Cozaar Tab* PO 50 mg DAILY INDU Administration Magnesium Hydroxide 30 ml 11/18/18 12:20 Milk Of Magnesia Liq* PO Q6H PRN CONSTIPATION Melatonin 3 mg 11/26/18 21:00 11/28/18 20:54 Melatonin PO 3 mg BEDTIME INDU Administration Nitrofurantoin Macrocrystals 50 mg 11/26/18 21:00 11/29/18 07:58 Macrodantin* PO 50 mg TID INDU Administration Pantoprazole Sodium 40 mg 11/19/18 09:00 11/29/18 07:59 Protonix Tab* PO 40 mg DAILY INDU Administration Pramipexole Dihydrochloride 0.25 mg 11/26/18 21:00 11/28/18 20:54 Mirapex Tab* PO 0.25 mg BEDTIME INDU Administration Senna 2 tab 11/18/18 12:20 11/27/18 21:38 Senokot 8.6 Mg Tab* PO 2 tab BEDTIME PRN Administration CONSTIPATION Tamsulosin HCl 0.4 mg 11/26/18 21:00 11/28/18 20:54 Flomax Cap* PO 0.4 mg BEDTIME INDU Administration Tiotropium [place] 2 puff 11/24/18 09:00 11/29/18 07:44 Spiriva Respimat 2.5 Mcg INH 2 puff DAILY INDU Administration Vital Signs: Vital Signs Temp Pulse Resp BP Pulse Ox 98.3 F 70 16 141/79 92 11/29/18 07:56 11/29/18 04:50 11/29/18 08:00 11/29/18 04:51 11/29/18 04:50 Exam: GENERAL: alert and appropriate LUNGS: Clear to auscultation bilaterally HEART: Regular rate and rhythm ABDOMEN: Soft, + bowel sounds, non-tender, non-distended EXTREMITIES: Decreased tone LUE NEUROLOGIC: Left facial droop. RUE and RLE 5/5 motor throughout. Left motor bic 2, tri 2-3, wrist 0, finger flexion 3, hip flex 4, knee ext 4, DF 4. Sensation intact. SKIN: macular papular rash on back only. Looking less red and better than yesterday. Left chest abrasion clean with new skin. Small eschars on left cheek and left scalp. Assessment/Plan: 1. 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 CT on 11/[address] Peck and seen by him 11/27. Microhemorrhage area not felt to be contraindication for anticoagulation. Plavix d/c'd and started eliquis 11/28 at 2.5mg bid. 2. Hypercholesterolemia: Lipitor 3. DVT Prophylaxis: eliquis 4. Dysphagia: Pureed solids/nectar thick liquids 5. Hypertension: Hydralazine PRN. Increased Cozaar to 50mg qday on 11/27. 6. BPH: Proscar and flomax per home urologist 7. COPD: Albuterol and Spiriva for COPD 8. Advance Directives: Has MOLST. DNR 9. Paroxysmal Atrial fibrillation: Eliquis 10. Chronic kidney disease: BUN/Cr stable. 11. Restless leg syndrome: pramipexole and melatonin at night. 12. UTI: Nitrofurantoin day 06/03. 13. Rash on back: hydrocortisone qid prn. Monitor. 11/29/18 10:19
[2018-11-29] MEDS: Atorvastatin* 10 MG TAB PO SCH (16:49)
[2018-11-29] MEDS: Albuterol HFA INHALER* 8 gm MDI INH PRN ×2 (16:51→23:02)
[2018-11-29] MEDS: Tamsulosin CAP* 0.4 MG PO SCH (21:29)
[2018-11-29] MEDS: Pramipexole TAB* 0.125 MG PO SCH (21:29)
[2018-11-29] MEDS: Melatonin 3 MG TAB PO SCH (21:29)
[2018-11-29] MEDS: clonazePAM TAB(*) 0.5 MG PO PRN (21:30)
[2018-11-30] MEDS: Folic Acid TAB* 1 MG PO SCH (08:33)
[2018-11-30] MEDS: Apixaban* 2.5 MG TAB PO SCH ×2 (08:33→21:23)
[2018-11-30] MEDS: Hydrocortisone 1% CREAM* 30 GM TUBE TOPICAL SCH ×4 (08:33→21:22)
[2018-11-30] MEDS: Docusate CAP* 100 MG PO SCH ×2 (08:33→21:23)
[2018-11-30] MEDS: Finasteride TAB* 5 MG PO SCH (08:33)
[2018-11-30] MEDS: Nitrofurantoin Macrocrystals* 50 MG CAP PO SCH ×3 (08:34→21:22)
[2018-11-30] MEDS: Pantoprazole TAB * 40 MG TAB PO SCH (08:34)
[2018-11-30] MEDS: Losartan TAB* 25 MG PO SCH (08:34)
[2018-11-30] MEDS: SPIRIVA Respimat* (tiotropium) 2.5 mcg/inh Inhaler INH SCH (11:28)
[2018-11-30] MEDS: Albuterol HFA INHALER* 8 gm MDI INH PRN (11:28)
--- NOTE | 2018-11-30 12:55 | PMRUTEAM ---
PMRU: Team Meeting Current Status: Nursing: Current Status Skin Deviations [L dorsal ft, Abrasion toes] Skin Deviations [Left Elbow] Abrasion Skin Deviations [Left Abrasion Posterior Neck] Skin Deviations [Left Temporal Abrasion ] Skin Deviations [Right Foot] Abrasion Skin Deviations [Left Heel] Abrasion Skin Deviations [Right Elbow] Abrasion Skin Deviations [Left Lateral Abrasion Knee] Skin Deviations [Left Chest] Abrasion Skin Deviations [Left Upper Abrasion Arm] Skin Deviations [Left Shoulder Abrasion ] Skin Deviations [Left Cheek] Abrasion Skin Deviation Description [L scabbed, healing dorsal ft, toes] Skin Deviation Description [ healing Left Elbow] Skin Deviation Description [ healing Left Posterior Neck] Skin Deviation Description [ healing Left Temporal] Skin Deviation Description [ healing Right Foot] Skin Deviation Description [ multipoduce boots in place Left Heel] Skin Deviation Description [ healing Right Elbow] Skin Deviation Description [ healing Left Lateral Knee] Skin Deviation Description [ healing Left Chest] Skin Deviation Description [ healing Left Upper Arm] Skin Deviation Description [ healing Left Shoulder] Skin Deviation Description [ healing Left Cheek] Bladder Current Status wilson in place Bowel Current Status last bm 11/20/18 Nutrition Current Status appetite good, tolerating nectar thick fluids, pureed food without difficulty Medication Current Status needs reinforcement Physical Therapy: Current Status Bed Mobility Assistance 2 or More Person Assist Transfer Mobility Assistance Max Assist Transfer/Bed Mobility EZ Stand Recommended Devices Ambulation Assistance Unable Ambulation Assistive Devices Large Base Quad Cane,Platform Walker,Balbir Walker Stairs Assistance Not Tested Stairs Recommended Devices Quad Cane Number of Stairs 3 Objective Comments Pt improving in orientation to midline and upright sitting balance throughout tx session Occupational Therapy: Current Status Upper Body Dressing Max Asst Lower Body Dressing Total Assist,2 Person Assist Bathing Mod Assist,2 Person Assist Toileting Total Assist,2 Person Assist Toilet Transfer Total Assist,2 Person Assist Toilet Transfer Progress EZ stand Shower Transfer Total Assist,2 Person Assist Eating Supervision Eating Progress set-up Rec Therapy: Current Status Summary of Assessment and Recreation Therapy assessment complete and pt. is Clinical Impression aware of services. Pt. has been active in pet therapy and leisure visits with activities being provided to him for independent engagement. Treatment Goals Pt. will engage in leisure activities while on the unit. Treatment Plan Provide recreation therapy services and encourage involvement. Nutrition: Current Status Monitoring po intake a bit variable in past week, but averaging 75% x 7 days. Loose BM 11/28; Colace held, but given again this a.m. Labs 11/26 reviewed; only notable for BGs 124-139. Eliquis started 11/28 . [employer] follow-up reviewed; pt was difficult to keep awake during 11/26 session, but he is overall showing slow progress per note. No new interventions at this time. Continuing pureed textures, nectar-thick liquids per [employer] recs. Speech: Current Status Assessment Progressing slowly as expected. Goals: Physical Therapy: Initial Goals Bed Mobility Assistance Independent Transfer Mobility Assistance Independent Transfer/Bed Mobility Large Base Quad Cane Recommended Devices Ambulation Independent Ambulation Recommended Devices Large Base Quad Cane Ambulation Distance 150 Stairs Assistance Independent Stair Recommended Devices One Rail Number of Stairs 8 Physical Therapy: Updated Goals Transfer/Bed Mobility EZ Stand Recommended Devices Occupational Therapy: Initial Goals Goals to be Completed in (Days 4-6 weeks ) Upper Body Bathing Routine Modified Independent with Lower Body Bathing Routine Modified Independent with Upper Body Dressing Routine Modified Independent with Lower Body Dressing Routine Modified Independent with Toilet Hygeine and Clothing Modified Independent with Management Routine Toilet Transfer Routine Modified Independent with Tub Transfer Routine Modified Independent with Functional Transfers for ADL Modified Independent with Grooming Routine Modified Independent with Feeding Routine Modified Independent with Nursing: Goals Bladder Goal independent Bowel Goal independent Medication Goal independent Nutrition: Goals Intervention Goals 1. adequate po intake to support hydration and lean body mass without wt loss 2. pt will tolerate least-restrictive diet texture without difficulty swallowing 3. maintain serum electrolytes WNL 4. regulation of bowel pattern; no c/o constipation (or diarrhea) Speech: Goals Speech Goal 1 Swallowing Speech Evaluation Status Goal Moderate 1 Goal 1 Comments Long-Term Goal: Patient will tolerate least restrictive diet consistencies w/ no stasis or clinical s/s aspiration Short Term Goals: 1) Pt will Independently use compensatory strategies to tolerate soft solid consistencies w/ no difficulty, minimal globus sensation and no clinical s/s aspiration, given Moderate cueing. Status; Progressing as expected. 2) Pt will use compensatory strategies to tolerate 20/20 trials of thin liquid over two sessions, w/ no clinical s/s aspiration, given Moderate cueing. Status: Progressing as expected. Patient tolerated 6/12 trials of thin water with no clinicla s/s aspiration by use of supraglottic (breath control) technique. 3) Pt will use compensatory strategies to tolerate 10/10 trials of nectar liquid over two sessions, w/ no clinical s/s aspiration, given Minimal cueing. Status: Met. Speech Goal 2 Speech Speech Goal 2 Evaluation Mild Status Speech Goal 2 Comments Motor-speech Long-Term Goal: Pt will I'ly speak with 100% intelligibility Status: Progressing as expected Short-Term Goal 1: Pt will use compensatory strategies to increase speech intelligibility to 95% in spontaneous conversational speech, given minimal cueing. Status: Progressing as expected During conversational speech, Pt was noted to be 95% intelligible with minimal cueing. Speech Goal 3 Problem Solving Speech Goal 3 Evaluation Moderate Status Speech Goal 3 Comments Problem Solving Goals: Long-Term Goal: Pt will use compensatory strategies to solve moderately complex routine problems, for reading, time and money management; with 100% accuracy, Independently. Status: Progressing as expected Short-Term Goal: Pt will use compensatory strategies to solve simple routine problems, for reading, time and money management; with 80% accuracy, given skilled instruction, Moderate cueing, and extra time. Status: Progessing as expected. -[employer] asked Pt comprehension questions regarding 3- 4 sentence stories read aloud. Pt answered with 60 % accuracy and moderate cueing. Care Plan: Care Plan ADL's - Improve/Maintain Start: 11/18/18 15:55 Freq: DAILY@0700,1900 Status: Active Target: 12/31/18 Protocol: Activity Type Activity Date Activity User E-Sign Co-Sign Detail Recorded Client Recorded Date Recorded By Document 11/26/18 14:54 [id number] [id number] 11/26/18 14:54 [id number] 11/26/18 14:54 PMRU Outcome: ADL's/ADL Transfers Orders/Interventions Occupational Therapy Evaluation & Treatment Communication Tool in Patient Room Device Yes Address Deficits Secondary To: R CVA Patient to receive OT 5x/wk for 60-120 Therex min/day Self Care Management Group Therapy Neuromuscular ReEducation UE/LE ADL's with Assist Yes: Efraín ADL Transfers with Assist Yes: Efraín Toileting: Transfers,Clothing Management Yes: Efraín ,Hygeine w/Assist Light Kitchen/Laundry w/Assist No Other Outcome/Goals Pt continues to struggle to maintain attention throughout activities, but when reminded he participates enthusiasticall y. Pt appears more alert for today's session than previous session, but did close eyes on 2 occassions during activity. Pt also continues to lack awareness of L UE and is not carrying over education regarding this from each session. Pt continues to show trace movement in 4th and 5th digits , trace movement noted in 1st digit, no movement in 2nd and 3rd. Progression Toward Outcome/Goals Progressing Cardiovascular- Improve/Maintain Start: 11/18/18 16:25 Freq: DAILY@0700,1900 Status: Active Target: 12/09/18 Protocol: Activity Type Activity Date Activity User E-Sign Co-Sign Detail Recorded Client Recorded Date Recorded By Document 11/30/18 01:06 [id number] 11/30/18 01:08 [id number] 11/30/18 01:06 PMRU Outcome: Cardiovascular Vital Signs q Shift for 48hrs Then BID Yes Daily Weight Ordered No Current Cardiovascular Outcome/Goal Maintain/ Achieve Baseline HR, BP , Perfusion Maintain/ Improve Perfusion Free of Abnormal Cardiac Symptoms Progression Toward Outcome/Goal Progressing Communication-Improve/Maintain Start: 11/19/18 14:45 Freq: DAILY@[id number] Status: Active Target: 12/09/18 Protocol: Activity Type Activity Date Activity User E-Sign Co-Sign Detail Recorded Client Recorded Date Recorded By Document 11/28/18 20:23 [id number] 11/28/18 20:25 [id number] 11/28/18 20:23 PMRU Outcome: Communication/Cognitive Status Current Communication Outcome/Goals Use Comm Tools/ Devices Makes Needs Known Effectively Progression Toward Outcomes/Goals Progressing DVT Prophylaxis- Improve/Maintain Start: 11/18/18 16:25 Freq: DAILY@[id number] Status: Active Target: 12/09/18 Protocol: Activity Type Activity Date Activity User E-Sign Co-Sign Detail Recorded Client Recorded Date Recorded By Document 11/30/18 01:06 [id number] 11/30/18 01:08 [id number] 11/30/18 01:06 PMRU Outcome: DVT Prophylaxis Current DVT Outcome/Goals Remains Free of DVT Complies with DVT Prophylaxis /Treatment TEDS Stockings on Every AM, Off at HS Progression Toward Outcome/Goals Progressing Discharge Planning - Improve/Maintain Start: 11/18/18 16:25 Freq: DAILY@[id number] Status: Active Target: 12/05/18 Protocol: Activity Type Activity Date Activity User E-Sign Co-Sign Detail Recorded Client Recorded Date Recorded By Document 11/30/18 01:06 [id number] 11/30/18 01:08 [id number] 11/30/18 01:06 PMRU Outcome: Discharge Planning Update Patient Family No Current Discharge Planning Outcome/Goals Demonstrates Understanding of Discharge Plan Homecare Referral - See Comment Progression Toward Outcome/Goals Progressing Education-Improve/Maintain Start: 11/18/18 16:25 Freq: DAILY@0700,1900 Status: Active Target: 12/24/18 Protocol: Activity Type Activity Date Activity User E-Sign Co-Sign Detail Recorded Client Recorded Date Recorded By Document 11/30/18 01:06 [id number] 11/30/18 01:08 [id number] 11/30/18 01:06 PMRU Outcome: Education Current Education Outcome/Goals Encourage Questions Progression Toward Outcome/Goals Progressing /GI-Improve/Maintain Start: 11/18/18 16:25 Freq: DAILY@0700,1900 Status: Active Target: 12/05/18 Protocol: Activity Type Activity Date Activity User E-Sign Co-Sign Detail Recorded Client Recorded Date Recorded By Document 11/30/18 01:06 [id number] 11/30/18 01:08 11/30/18 01:06 PMRU Outcome: Genitourinary/ Gastrointestinal Current Gastrointestinal Outcome/Goals Maintain/ Achieve Bowel Regularity in Accordance with Pt's Baseline Remain Free of Emesis Prevent Constipation Laxatives as Ordered Progression Toward Outcome/Goals Progressing Current Genitourinary Outcome/Goals Maintain/ Achieve Urinary Continence Maintain/ Achieve Adequate Urinary Output Remain Free of Hospital- Acquired UTI Progression Toward Outcome/Goals Progressing Outcome/Goals Met Comment pt using urinal / is also incont at times Medication Administration Start: 11/18/18 16:25 Freq: DAILY@0700,1900 Status: Active Target: 12/24/18 Protocol: Activity Type Activity Date Activity User E-Sign Co-Sign Detail Recorded Client Recorded Date Recorded By Document 11/30/18 01:06 [id number] 11/30/18 01:08 [id number] 11/30/18 01:06 PMRU Outcome: Medication Administration Assess Patient Knowledge/Teach Med Yes Education for all Meds Current Ancillary Services Manager Therapy Outcome/Goals Family/ Caregiver Administer Medications at Home Demonstrates Understanding Progression Towards Outcome/Goals Progressing Is Patient Going Home on Lovenox? No Mobility- Improve/Maintain Start: 11/18/18 17:21 Freq: DAILY@699,0 Status: Active Target: 12/24/18 Protocol: Activity Type Activity Date Activity User E-Sign Co-Sign Detail Recorded Client Recorded Date Recorded By Document 11/26/18 17:50 [id number] 11/26/18 17:51 [id number] 11/26/18 17:50 PMRU Outcome: Mobility Physical Therapy Evaluation and Yes Treatment Activity OOB with Assistance Yes WBAT Yes Device Yes Assistance Yes Patient to be seen 5x/wk for 60-120 min/ Therex day for: Mobility Training Gait Training W/C Mobility Balance Current Mobility Outcome/Goals Maintain/ Achieve Baseline Mobility Status Improve Mobility Status Demonstrates Proper Use of Assistive Devices Free from Complications of Immobility Progression Toward Outcome/Goals Progressing Bed Mobility Yes: independent Transfers Yes: independent with LBQC Gait x ft Yes: independent with LBQC Up/Down Stairs Yes: independent up/ down 8 stairs with 1 rail Neurological- Improve/Maintain Start: 11/18/18 16:25 Freq: DAILY@699,1899 Status: Active Target: 12/09/18 Protocol: Activity Type Activity Date Activity User E-Sign Co-Sign Detail Recorded Client Recorded Date Recorded By Document 11/30/18 01:06 [id number] [id number] 11/30/18 01:08 11/30/18 01:06 PMRU Outcome: Neurological Weakness/Aphasia Weakness Left Side Current Neurological Outcome/Goals Maintain/ Achieve Baseline Neurological Status Improve Neurological Status Prevent Avoidable Neurological Decline Demonstrate Knowledge of Prevention/Tx of Neuro Disorders/ Complication Maintain/ Improve Strength/ROM Progression Toward Outcome/Goals Progressing Nutrition/Swallowing- Improve/Maintain Start: 11/18/18 16:25 Freq: DAILY@699,1900 Status: Active Target: 12/09/18 Protocol: Activity Type Activity Date Activity User E-Sign Co-Sign Detail Recorded Client Recorded Date Recorded By Document 11/30/18 01:06 [id number] [email or web address] 11/30/18 01:08 [id number] 11/30/18 01:06 PMRU Outcome: Nutrition/Swallowing Current Nutrition/Swallowing Outcome/ Demonstrates Goals Adequate Hydration/ Prevents Dehydration Maintain/ Improve Nutritional Status Progression Toward Outcome/Goals Progressing Outcome/Goals Met Comment continuing with nectar thick and pureed order Rec Therapy- Improve/Maintain Start: 11/19/18 08:48 Freq: DAILY@0700,1900 Status: Active Target: 12/31/18 Protocol: Activity Type Activity Date Activity User E-Sign Co-Sign Detail Recorded Client Recorded Date Recorded By Document 11/24/18 16:47 [id number] [email or web address] 11/24/18 16:47 [id number] 11/24/18 16:47 PMRU Outcome: Recreation Therapy Current Rec Ther Outcome/Goals Meet with Patient Regularly for Support Encourage Leisure Involvement Progression Toward Outcome/Goals Progressing Lack of Progression Comment pt. continues to welcome leisure visits and support. Outcome/Goals Met Complete Rec Therapy Assessment Respiratory - Improve/Maintain Start: 11/18/18 16:25 Freq: DAILY@0700,1900 Status: Active Target: 12/09/18 Protocol: Activity Type Activity Date Activity User E-Sign Co-Sign Detail Recorded Client Recorded Date Recorded By Document 11/30/18 01:06 [id number] 11/30/18 01:08 [id number] 11/30/18 01:06 PMRU Outcome: Respiratory Does Patient Have a Trach No Current Respiratory Outcome/Goals Maintain/ Improve O2 Sat per MD Order Maintain/ Improve Baseline Respiratory Status Maintain/ Improve Activity Tolerance Prevent Pneumonia/ Atelectasis Remain Aspiration Free Progression Toward Outcome/Goals Progressing Safety- Improve/Maintain Start: 11/18/18 11:45 Freq: DAILY@0700,1900 Status: Active Target: 12/09/18 Protocol: Activity Type Activity Date Activity User E-Sign Co-Sign Detail Recorded Client Recorded Date Recorded By Document 11/30/18 01:06 [id number] 11/30/18 01:08 [id number] 11/30/18 01:06 PMRU Outcome: Safety Current Safety Outcome/Goals Remain Free of Injury or Harm Cooperates with Safety Measures for Least Restrictive Environment Prevent Falls/ Injury Progression Toward Outcome/Goals Progressing Outcome/Goals Met Comment BA armed Skin- Improve/Maintain Start: 11/18/18 16:25 Freq: DAILY@0700,1900 Status: Active Target: 12/09/18 Protocol: Activity Type Activity Date Activity User E-Sign Co-Sign Detail Recorded Client Recorded Date Recorded By Document 11/30/18 01:06 [id number] [email or web address] 11/30/18 01:08 [id number] 11/30/18 01:06 PMRU Outcome: Skin Skin Risk Level Moderate Risk Skin Orders Multipodus Boot Current Skin Outcome/Goals Maintain/ Improve Skin Integrity Free from Pressure Injury Progression Toward Outcome/Goals Progressing Medicine Note: Length of Stay: 4 1/2 weeks Anticipated Discharge Destination: Tentative Discharge Date: December 31, 2018 Discharged to: Home
[2018-11-30] MEDS: Atorvastatin* 10 MG TAB PO SCH (17:51)
--- NOTE | 2018-11-30 19:22 | PN ---
Progress Note Date of Service: 11/30/18 Note: CHAPINCITO MORALES SR was visited. Therapy notes read and reviewed. He was discussed in interdisciplinary team rounds. He did not sleep well last night and was quite tired today. He is on Nitrofurantoin for a UTI. Started Eliquis. Current Medications: Active Medications Generic Name Dose Route Start Last Admin Trade Name Freq PRN Reason Stop Dose Admin Acetaminophen 650 mg 11/18/18 12:20 Tylenol Tab* PO Q6H PRN MILD PAIN or TEMP > 100.4 Albuterol 2 puff 11/21/18 13:52 11/30/18 11:28 Ventolin Hfa Inhaler* INH 2 puff Q6H PRN Administration SOB/WHEEZING Apixaban 2.5 mg 11/28/18 09:00 11/30/18 08:33 Eliquis* PO 2.5 mg BID INDU Administration Atorvastatin Calcium 10 mg 11/19/18 17:00 11/30/18 17:51 Lipitor* PO 10 mg 1700 INDU Administration Bisacodyl 10 mg 11/18/18 12:20 Dulcolax Supp* OK DAILY PRN CONSTIPATION Clonazepam 0.5 mg 11/23/18 17:44 11/29/18 21:30 Klonopin Tab(*) PO 0.5 mg BEDTIME PRN Administration ANXIETY Docusate Sodium 100 mg 11/18/18 21:00 11/30/18 08:33 Colace Cap* PO 100 mg BID INDU Administration Finasteride 5 mg 11/19/18 09:00 11/30/18 08:33 Proscar Tab* PO 5 mg DAILY INDU Administration Folic Acid 1 mg 11/19/18 09:00 11/30/18 08:33 Folvite Tab* PO 1 mg DAILY INDU Administration Hydralazine HCl 10 mg 11/20/18 10:51 11/20/18 23:09 Apresoline Tab* PO 10 mg Q8H PRN Administration Systolic Bp Greater Than: 180 Hydrocortisone 1 applic 11/29/18 09:00 11/30/18 17:51 Hytone Cream 1%* TOPICAL 1 applic QID INDU Administration Losartan Potassium 50 mg 11/28/18 09:00 11/30/18 08:34 Cozaar Tab* PO 50 mg DAILY INDU Administration Magnesium Hydroxide 30 ml 11/18/18 12:20 Milk Of Magnesia Liq* PO Q6H PRN CONSTIPATION Melatonin 3 mg 11/26/18 21:00 11/29/18 21:29 Melatonin PO 3 mg BEDTIME INDU Administration Nitrofurantoin Macrocrystals 50 mg 11/26/18 21:00 11/30/18 15:34 Macrodantin* PO 50 mg TID INDU Administration Pantoprazole Sodium 40 mg 11/19/18 09:00 11/30/18 08:34 Protonix Tab* PO 40 mg DAILY INDU Administration Pramipexole Dihydrochloride 0.25 mg 11/26/18 21:00 11/29/18 21:29 Mirapex Tab* PO 0.25 mg BEDTIME INDU Administration Senna 2 tab 11/18/18 12:20 11/27/18 21:38 Senokot 8.6 Mg Tab* PO 2 tab BEDTIME PRN Administration CONSTIPATION Tamsulosin HCl 0.4 mg 11/26/18 21:00 11/29/18 21:29 Flomax Cap* PO 0.4 mg BEDTIME INDU Administration Tiotropium [place] 2 puff 11/24/18 09:00 11/30/18 11:28 Spiriva Respimat 2.5 Mcg INH 2 puff DAILY INDU Administration Vital Signs: Vital Signs Temp Pulse Resp BP Pulse Ox 98.2 F 61 18 143/54 94 11/30/18 16:40 11/30/18 16:40 11/30/18 17:22 11/30/18 16:40 11/30/18 17:22 Exam: GENERAL: alert and appropriate LUNGS: Clear to auscultation bilaterally HEART: Regular rate and rhythm ABDOMEN: Soft, + bowel sounds, non-tender, non-distended EXTREMITIES: Decreased tone LUE NEUROLOGIC: Left facial droop. RUE and RLE 5/5 motor throughout. Left motor bic 2, tri 2-3, wrist 0, finger flexion 3, hip flex 4, knee ext 4, DF 4. Sensation intact. SKIN: macular papular rash on back only. Left chest abrasion clean. Small eschars on left cheek and left scalp. Assessment/Plan: 1. Right MCA CVA with left hemiparesis: PT/OT/ASTROPHYSICS PROFESSOR. CT on 11/[address] Peck and seen by him 11/27. Plavix d/c'd and started eliquis 2.5mg bid. 2. Hypercholesterolemia: Lipitor 3. DVT Prophylaxis: eliquis 4. Dysphagia: Pureed solids/nectar thick liquids 5. Hypertension: Hydralazine PRN. Increased Cozaar to 50mg qday on 11/27. 6. BPH: Proscar and flomax per home urologist 7. COPD: Albuterol and Spiriva for COPD 8. Advance Directives: Has MOLST. DNR 9. Paroxysmal Atrial fibrillation: Eliquis 10. Chronic kidney disease: BUN/Cr stable. 11. Restless leg syndrome: pramipexole and melatonin at night. 12. UTI: Nitrofurantoin day 07/04. 13. Rash on back: hydrocortisone qid prn. Monitor. 11/30/18 19:23
[2018-11-30] MEDS: Pramipexole TAB* 0.125 MG PO SCH (21:22)
[2018-11-30] MEDS: Melatonin 3 MG TAB PO SCH (21:23)
[2018-11-30] MEDS: Tamsulosin CAP* 0.4 MG PO SCH (21:23)
[2018-11-30] MEDS: Senna TAB 8.6 mg* TAB PO PRN (21:30)
[2018-12-01] MEDS: Nitrofurantoin Macrocrystals* 50 MG CAP PO SCH ×3 (08:22→15:44)
[2018-12-01] MEDS: Folic Acid TAB* 1 MG PO SCH (08:22)
[2018-12-01] MEDS: Apixaban* 2.5 MG TAB PO SCH ×2 (08:22→20:27)
[2018-12-01] MEDS: Finasteride TAB* 5 MG PO SCH (08:22)
[2018-12-01] MEDS: Losartan TAB* 25 MG PO SCH (08:22)
[2018-12-01] MEDS: Pantoprazole TAB * 40 MG TAB PO SCH (08:22)
[2018-12-01] MEDS: Hydrocortisone 1% CREAM* 30 GM TUBE TOPICAL SCH ×4 (08:22→20:29)
[2018-12-01] MEDS: Docusate CAP* 100 MG PO SCH ×2 (08:22→21:00)
[2018-12-01] MEDS: SPIRIVA Respimat* (tiotropium) 2.5 mcg/inh Inhaler INH SCH (09:00)
[2018-12-01] MEDS: Albuterol HFA INHALER* 8 gm MDI INH PRN (09:00)
[2018-12-01] MEDS: Atorvastatin* 10 MG TAB PO SCH (17:34)
[2018-12-01] MEDS: Pramipexole TAB* 0.125 MG PO SCH (20:27)
[2018-12-01] MEDS: Melatonin 3 MG TAB PO SCH (20:29)
--- NOTE | 2018-12-01 20:29 | PN ---
Progress Note Date of Service: 12/01/18 Note: CHAPINCITO MORALES SR was visited. Therapy notes read and reviewed. He had a lot of insomnia last night but Klonopin was not given. Sleepy today but hopefully will sleep tonight Current Medications: Active Medications Generic Name Dose Route Start Last Admin Trade Name Freq PRN Reason Stop Dose Admin Acetaminophen 650 mg 11/18/18 12:20 Tylenol Tab* PO Q6H PRN MILD PAIN or TEMP > 100.4 Albuterol 2 puff 11/21/18 13:52 12/01/18 09:00 Ventolin Hfa Inhaler* INH 2 puff Q6H PRN Administration SOB/WHEEZING Apixaban 2.5 mg 11/28/18 09:00 12/01/18 08:22 Eliquis* PO 2.5 mg BID INDU Administration Atorvastatin Calcium 10 mg 11/19/18 17:00 12/01/18 17:34 Lipitor* PO 10 mg 1700 INDU Administration Bisacodyl 10 mg 11/18/18 12:20 Dulcolax Supp* [place] DAILY PRN CONSTIPATION Clonazepam 0.5 mg 11/23/18 17:44 11/29/18 21:30 Klonopin Tab(*) PO 0.5 mg BEDTIME PRN Administration ANXIETY Docusate Sodium 100 mg 11/18/18 21:00 12/01/18 08:22 Colace Cap* PO 100 mg BID INDU Administration Finasteride 5 mg 11/19/18 09:00 12/01/18 08:22 Proscar Tab* PO 5 mg DAILY INDU Administration Folic Acid 1 mg 11/19/18 09:00 12/01/18 08:22 Folvite Tab* PO 1 mg DAILY INDU Administration Hydralazine HCl 10 mg 11/20/18 10:51 11/20/18 23:09 Apresoline Tab* PO 10 mg Q8H PRN Administration Systolic Bp Greater Than: 180 Hydrocortisone 1 applic 11/29/18 09:00 12/01/18 17:35 Hytone Cream 1%* TOPICAL 1 applic QID INDU Administration Losartan Potassium 50 mg 11/28/18 09:00 12/01/18 08:22 Cozaar Tab* PO 50 mg DAILY INDU Administration Magnesium Hydroxide 30 ml 11/18/18 12:20 Milk Of Magnesia Liq* PO Q6H PRN CONSTIPATION Melatonin 3 mg 11/26/18 21:00 11/30/18 21:23 Melatonin PO 3 mg BEDTIME INDU Administration Nitrofurantoin Macrocrystals 50 mg 11/26/18 21:00 12/01/18 15:44 Macrodantin* PO 50 mg TID INDU Administration Pantoprazole Sodium 40 mg 11/19/18 09:00 12/01/18 08:22 Protonix Tab* PO 40 mg DAILY INDU Administration Pramipexole Dihydrochloride 0.25 mg 11/26/18 21:00 11/30/18 21:22 Mirapex Tab* PO 0.25 mg BEDTIME INDU Administration Senna 2 tab 11/18/18 12:20 11/30/18 21:30 Senokot 8.6 Mg Tab* PO 2 tab BEDTIME PRN Administration CONSTIPATION Tamsulosin HCl 0.4 mg 11/26/18 21:00 11/30/18 21:23 Flomax Cap* PO 0.4 mg BEDTIME INDU Administration Tiotropium [place] 2 puff 11/24/18 09:00 12/01/18 09:00 Spiriva Respimat 2.5 Mcg INH 2 puff DAILY INDU Administration Vital Signs: Vital Signs Temp Pulse Resp BP Pulse Ox 97.4 F 70 24 154/59 96 12/01/18 18:23 12/01/18 18:23 12/01/18 18:23 12/01/18 18:23 12/01/18 19:43 Exam: GENERAL: alert and appropriate LUNGS: Clear to auscultation bilaterally HEART: Regular rate and rhythm ABDOMEN: Soft, + bowel sounds, non-tender, non-distended EXTREMITIES: Decreased tone LUE NEUROLOGIC: Left facial droop. RUE and RLE 5/5 motor throughout. Left motor bic 2, tri 2-3, wrist 0, finger flexion 3, hip flex 4, knee ext 4, DF 4. Sensation intact. SKIN: macular papular rash on back. Left chest abrasion clean. Small eschars on left cheek and left scalp. Assessment/Plan: 1. 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 CT on 11/[address] Peck and seen by him 11/27. Plavix d/c'd and started eliquis 2.5mg bid. 2. Hypercholesterolemia: Lipitor 3. DVT Prophylaxis: eliquis 4. Dysphagia: Pureed solids/nectar thick liquids 5. Hypertension: Hydralazine PRN. Increased Cozaar to 50mg qday . 6. BPH: Proscar and flomax per home urologist 7. COPD: Albuterol and Spiriva for COPD 8. Advance Directives: Has MOLST. DNR 9. Paroxysmal Atrial fibrillation: Eliquis 10. Chronic kidney disease: BUN/Cr stable. 11. Restless leg syndrome: pramipexole and melatonin at night. 12. UTI: Nitrofurantoin day 08/03. 13. Rash on back: hydrocortisone qid prn. Monitor. 12/01/18 20:29
[2018-12-01] MEDS: Tamsulosin CAP* 0.4 MG PO SCH (20:30)
[2018-12-01] MEDS: clonazePAM TAB(*) 0.5 MG PO PRN (22:45)
[2018-12-02] MEDS: SPIRIVA Respimat* (tiotropium) 2.5 mcg/inh Inhaler INH SCH (08:00)
[2018-12-02] MEDS: Pantoprazole TAB * 40 MG TAB PO SCH (08:18)
[2018-12-02] MEDS: Losartan TAB* 25 MG PO SCH (08:18)
[2018-12-02] MEDS: Nitrofurantoin Macrocrystals* 50 MG CAP PO SCH ×2 (08:18→15:13)
[2018-12-02] MEDS: Apixaban* 2.5 MG TAB PO SCH ×2 (08:18→21:27)
[2018-12-02] MEDS: Finasteride TAB* 5 MG PO SCH (08:18)
[2018-12-02] MEDS: Docusate CAP* 100 MG PO SCH ×2 (08:18→21:27)
[2018-12-02] MEDS: Folic Acid TAB* 1 MG PO SCH (08:18)
[2018-12-02] MEDS: Hydrocortisone 1% CREAM* 30 GM TUBE TOPICAL SCH ×4 (14:34→21:26)
[2018-12-02] MEDS: Atorvastatin* 10 MG TAB PO SCH (16:56)
[2018-12-02] MEDS: Acetaminophen TAB* 325 MG PO PRN (16:56)
--- NOTE | 2018-12-02 21:09 | PN ---
Progress Note Date of Service: 12/02/18 Note: CHAPINCITO MORALES SR was visited. Therapy notes read and reviewed. He is till having trouble sleeping. He otherwise is doing ok, more awake today than he was yesterday. He has had shooting pains up his left arm with range of motion by the therapist. Will start gabapentin. Will stop his macrodantin-it may be contributing to restlessness at night. Current Medications: Active Medications Generic Name Dose Route Start Last Admin Trade Name Freq PRN Reason Stop Dose Admin Acetaminophen 650 mg 11/18/18 12:20 12/02/18 16:56 Tylenol Tab* PO 650 mg Q6H PRN Administration MILD PAIN or TEMP > 100.4 Albuterol 2 puff 11/21/18 13:52 12/01/18 09:00 Ventolin Hfa Inhaler* INH 2 puff Q6H PRN Administration SOB/WHEEZING Apixaban 2.5 mg 11/28/18 09:00 12/02/18 08:18 Eliquis* PO 2.5 mg BID IDNU Administration Atorvastatin Calcium 10 mg 11/19/18 17:00 12/02/18 16:56 Lipitor* PO 10 mg 1700 INDU Administration Bisacodyl 10 mg 11/18/18 12:20 Dulcolax Supp* [place] DAILY PRN CONSTIPATION Clonazepam 0.5 mg 11/23/18 17:44 12/01/18 22:45 Klonopin Tab(*) PO 0.5 mg BEDTIME PRN Administration ANXIETY Docusate Sodium 100 mg 11/18/18 21:00 12/02/18 08:18 Colace Cap* PO 100 mg BID INDU Administration Finasteride 5 mg 11/19/18 09:00 12/02/18 08:18 Proscar Tab* PO 5 mg DAILY INDU Administration Folic Acid 1 mg 11/19/18 09:00 12/02/18 08:18 Folvite Tab* PO 1 mg DAILY INDU Administration Gabapentin 100 mg 12/02/18 21:00 Neurontin Cap(*) PO BID INDU Hydralazine HCl 10 mg 11/20/18 10:51 11/20/18 23:09 Apresoline Tab* PO 10 mg Q8H PRN Administration Systolic Bp Greater Than: 180 Hydrocortisone 1 applic 11/29/18 09:00 12/02/18 17:00 Hytone Cream 1%* TOPICAL 1 applic QID INDU Administration Losartan Potassium 50 mg 11/28/18 09:00 12/02/18 08:18 Cozaar Tab* PO 50 mg DAILY INDU Administration Magnesium Hydroxide 30 ml 11/18/18 12:20 Milk Of Magnisabel Liq* PO Q6H PRN CONSTIPATION Melatonin 3 mg 11/26/18 21:00 12/01/18 20:29 Melatonin PO 3 mg BEDTIME INDU Administration Pantoprazole Sodium 40 mg 11/19/18 09:00 12/02/18 08:18 Protonix Tab* PO 40 mg DAILY INDU Administration Pramipexole Dihydrochloride 0.25 mg 11/26/18 21:00 12/01/18 20:27 Mirapex Tab* PO 0.25 mg BEDTIME INDU Administration Senna 2 tab 11/18/18 12:20 11/30/18 21:30 Senokot 8.6 Mg Tab* PO 2 tab BEDTIME PRN Administration CONSTIPATION Tamsulosin HCl 0.4 mg 11/26/18 21:00 12/01/18 20:30 Flomax Cap* PO 0.4 mg BEDTIME INDU Administration Tiotropium [place] 2 puff 11/24/18 09:00 12/02/18 08:00 Spiriva Respimat 2.5 Mcg INH 2 puff DAILY INDU Administration Vital Signs: Vital Signs Temp Pulse Resp BP Pulse Ox 98.5 F 70 20 154/63 98 12/02/18 15:52 12/02/18 15:52 12/02/18 19:11 12/02/18 15:52 12/02/18 19:11 Exam: GENERAL: alert and appropriate LUNGS: Clear to auscultation bilaterally HEART: Regular rate and rhythm ABDOMEN: Soft, + bowel sounds, non-tender, non-distended EXTREMITIES: Decreased tone LUE NEUROLOGIC: Left facial droop. RUE and RLE 5/5 motor throughout. Left motor bic 2, tri 2-3, wrist 0, finger flexion 3, hip flex 4, knee ext 4, DF 4. Sensation intact. SKIN: macular papular rash on back. Left chest abrasion clean. Small eschars on left cheek and left scalp. Assessment/Plan: 1. 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 CT reviewed by Dr. [place]. Plavix d/c'd and started eliquis 2.5mg bid. 2. Hypercholesterolemia: Lipitor 3. DVT Prophylaxis: eliquis 4. Dysphagia: Pureed solids/nectar thick liquids 5. Hypertension: Hydralazine PRN. Increased Cozaar to 50mg qday . 6. BPH: Proscar and flomax per home urologist 7. COPD: Albuterol and Spiriva for COPD 8. Advance Directives: Has MOLST. DNR 9. Paroxysmal Atrial fibrillation: Eliquis 10. Chronic kidney disease: BUN/Cr stable. 11. Restless leg syndrome: pramipexole and melatonin at night. 12. UTI: Nitrofurantoin day 6- will d/c now. 13. Rash on back: hydrocortisone qid prn. Monitor. 12/02/18 21:09
[2018-12-02] MEDS: Pramipexole TAB* 0.125 MG PO SCH (21:20)
[2018-12-02] MEDS: Gabapentin CAP(*) 100 MG PO SCH (21:22)
[2018-12-02] MEDS: Melatonin 3 MG TAB PO SCH (21:22)
[2018-12-02] MEDS: Tamsulosin CAP* 0.4 MG PO SCH (21:22)
[2018-12-02] MEDS: clonazePAM TAB(*) 0.5 MG PO PRN (23:05)
[2018-12-03 05:47] LABS: ABS Basophils 0.1 10^3/ul (0-0.2); ABS Eosinophils 0.3 10^3/ul (0-0.6); ABS Monocytes 0.7 10^3/ul (0-0.8); ABS Neutrophils 4.4 10^3/ul (1.5-7.7); Eosinophil % 4.7 %; Hematocrit 38 % (42-52); Hemoglobin 13.2 g/dL (14.0-18.0); Lymphocyte % 15.5 %; Mean Corpuscular HGB Conc 35 g/dL (31-36); Mean Corpuscular Hemoglobin 34 pg (27-31); Mean Corpuscular Volume 97 fL (80-94); Mean Platelet Volume 9.8 fL (7.4-10.4); Platelet Count 178 10^3/uL (150-450); Red Blood Count 3.95 10^6 /uL (4.18-5.48); Red Cell Distribution Width 13 % (10-15); White Blood Count 6.5 10^3/uL (3.5-10.8)
[2018-12-03 06:02] LABS: Albumin 3.4 g/dL (3.2-5.2); Albumin/Globulin Ratio 1.1 (1-3); BUN/Creatinine Ratio 16.5 (8-20); Calcium 9.7 mg/dL (8.6-10.3); EGFR African American 78.4 (>60); EGFR Non-African American 64.8 (>60); Globulin 3.1 g/dL (2-4); Potassium 4.2 mmol/L (3.5-5.0); Total Protein 6.5 g/dL (6.4-8.9)
[2018-12-03] MEDS: SPIRIVA Respimat* (tiotropium) 2.5 mcg/inh Inhaler INH SCH (08:29)
[2018-12-03] MEDS: Finasteride TAB* 5 MG PO SCH (10:21)
[2018-12-03] MEDS: Apixaban* 2.5 MG TAB PO SCH ×2 (10:21→20:49)
[2018-12-03] MEDS: Hydrocortisone 1% CREAM* 30 GM TUBE TOPICAL SCH ×4 (10:22→20:49)
[2018-12-03] MEDS: Gabapentin CAP(*) 100 MG PO SCH ×2 (10:22→20:50)
[2018-12-03] MEDS: Folic Acid TAB* 1 MG PO SCH (10:22)
[2018-12-03] MEDS: Pantoprazole TAB * 40 MG TAB PO SCH (10:22)
[2018-12-03] MEDS: Losartan TAB* 25 MG PO SCH (10:30)
[2018-12-03] MEDS: Docusate CAP* 100 MG PO SCH ×2 (10:30→20:49)
[2018-12-03] MEDS: Atorvastatin* 10 MG TAB PO SCH (16:50)
--- NOTE | 2018-12-03 19:06 | PN ---
Progress Note Date of Service: 12/03/18 Note: CHAPINCITO MORALES SR was visited. Therapy notes read and reviewed. He slept better last night. The Nitrofurantoin had been stopped but he also had gabapentin last night Current Medications: Active Medications Generic Name Dose Route Start Last Admin Trade Name Freq PRN Reason Stop Dose Admin Acetaminophen 650 mg 11/18/18 12:20 12/02/18 16:56 Tylenol Tab* PO 650 mg Q6H PRN Administration MILD PAIN or TEMP > 100.4 Albuterol 2 puff 11/21/18 13:52 12/01/18 09:00 Ventolin Hfa Inhaler* INH 2 puff Q6H PRN Administration SOB/WHEEZING Apixaban 2.5 mg 11/28/18 09:00 12/03/18 10:21 Eliquis* PO 2.5 mg BID INDU Administration Atorvastatin Calcium 10 mg 11/19/18 17:00 12/03/18 16:50 Lipitor* PO 10 mg 1700 INDU Administration Bisacodyl 10 mg 11/18/18 12:20 Dulcolax Supp* [place] DAILY PRN CONSTIPATION Clonazepam 0.5 mg 11/23/18 17:44 12/02/18 23:05 Klonopin Tab(*) PO 0.5 mg BEDTIME PRN Administration ANXIETY Docusate Sodium 100 mg 11/18/18 21:00 12/03/18 10:30 Colace Cap* PO 100 mg BID INDU Administration Finasteride 5 mg 11/19/18 09:00 12/03/18 10:21 Proscar Tab* PO 5 mg DAILY INDU Administration Folic Acid 1 mg 11/19/18 09:00 12/03/18 10:22 Folvite Tab* PO 1 mg DAILY INDU Administration Gabapentin 100 mg 12/02/18 21:00 12/03/18 10:22 Neurontin Cap(*) PO 100 mg BID INDU Administration Hydralazine HCl 10 mg 11/20/18 10:51 11/20/18 23:09 Apresoline Tab* PO 10 mg Q8H PRN Administration Systolic Bp Greater Than: 180 Hydrocortisone 1 applic 11/29/18 09:00 12/03/18 16:50 Hytone Cream 1%* TOPICAL 1 applic QID INDU Administration Losartan Potassium 50 mg 11/28/18 09:00 12/03/18 10:30 Cozaar Tab* PO 50 mg DAILY INDU Administration Magnesium Hydroxide 30 ml 11/18/18 12:20 Milk Of Magnesia Liq* PO Q6H PRN CONSTIPATION Melatonin 3 mg 11/26/18 21:00 12/02/18 21:22 Melatonin PO 3 mg BEDTIME INDU Administration Pantoprazole Sodium 40 mg 11/19/18 09:00 12/03/18 10:22 Protonix Tab* PO 40 mg DAILY INDU Administration Pramipexole Dihydrochloride 0.25 mg 11/26/18 21:00 12/02/18 21:20 Mirapex Tab* PO 0.25 mg BEDTIME INDU Administration Senna 2 tab 11/18/18 12:20 11/30/18 21:30 Senokot 8.6 Mg Tab* PO 2 tab BEDTIME PRN Administration CONSTIPATION Tamsulosin HCl 0.4 mg 11/26/18 21:00 12/02/18 21:22 Flomax Cap* PO 0.4 mg BEDTIME INDU Administration Tiotropium [place] 2 puff 11/24/18 09:00 12/03/18 08:29 Spiriva Respimat 2.5 Mcg INH 2 puff DAILY INDU Administration Vital Signs: Vital Signs Temp Pulse Resp BP Pulse Ox 97.8 F 70 16 136/51 92 12/03/18 15:48 12/03/18 15:48 12/03/18 15:48 12/03/18 15:48 12/03/18 15:48 Lab Results: Laboratory Results - last 24 hr 12/03/18 12/03/18 05:22 05:22 WBC 6.5 RBC 3.95 L Hgb 13.2 L Hct 38 L MCV 97 H MCH 34 H MCHC 35 RDW 13 Plt Count 178 MPV 9.8 Neut % (Auto) 67.4 Lymph % (Auto) 15.5 [place] % (Auto) 11.5 Eos % (Auto) 4.7 Baso % (Auto) 0.9 Absolute Neuts (auto) 4.4 Absolute Lymphs (auto) 1.0 Absolute Monos (auto) 0.7 Absolute Eos (auto) 0.3 Absolute Basos (auto) 0.1 Absolute Nucleated RBC 0.0 Nucleated RBC % 0.0 Sodium 135 Potassium 4.2 Chloride 99 L Carbon Dioxide 29 Anion Gap 7 BUN 18 Creatinine 1.09 Est GFR ( Amer) 78.4 Est GFR (Non-Af Amer) 64.8 BUN/Creatinine Ratio 16.5 Glucose 136 H Calcium 9.7 Total Bilirubin 1.00 AST 20 ALT 27 Alkaline Phosphatase 72 Total Protein 6.5 Albumin 3.4 Globulin 3.1 Albumin/Globulin Ratio 1.1 Exam: GENERAL: alert and appropriate LUNGS: Clear to auscultation bilaterally HEART: Regular rate and rhythm ABDOMEN: Soft, + bowel sounds, non-tender, non-distended EXTREMITIES: Decreased tone LUE NEUROLOGIC: Left facial droop. RUE and RLE 5/5 motor throughout. Left motor bic 2, tri 2-3, wrist 0, finger flexion 3, hip flex 4, knee ext 4, DF 4. Sensation intact. SKIN: fading macular papular rash on back. Left chest abrasion clean. Small eschars on left cheek and left scalp. Assessment/Plan: 1. 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 CTH reviewed by Dr. Peck. Eliquis 2.5mg bid. 2. Hypercholesterolemia: Lipitor 3. DVT Prophylaxis: eliquis 4. Dysphagia: Pureed solids/nectar thick liquids 5. Hypertension: Hydralazine PRN. Increased Cozaar to 50mg qday . 6. BPH: Proscar and flomax per home urologist 7. COPD: Albuterol and Spiriva for COPD 8. Advance Directives: Has MOLST. DNR 9. Paroxysmal Atrial fibrillation: Eliquis 10. Chronic kidney disease: BUN/Cr stable. 11. Restless leg syndrome: pramipexole and melatonin at night. 12. Rash on back: hydrocortisone qid prn. Monitor. 12/03/18 19:06
[2018-12-03] MEDS: Pramipexole TAB* 0.125 MG PO SCH (20:49)
[2018-12-03] MEDS: Melatonin 3 MG TAB PO SCH (20:50)
[2018-12-03] MEDS: Tamsulosin CAP* 0.4 MG PO SCH (20:50)
[2018-12-04] MEDS: clonazePAM TAB(*) 0.5 MG PO PRN (00:40)
[2018-12-04] MEDS: SPIRIVA Respimat* (tiotropium) 2.5 mcg/inh Inhaler INH SCH (09:04)
[2018-12-04] MEDS: Apixaban* 2.5 MG TAB PO SCH ×2 (09:53→21:00)
[2018-12-04] MEDS: Docusate CAP* 100 MG PO SCH ×2 (09:53→21:00)
[2018-12-04] MEDS: Pantoprazole TAB * 40 MG TAB PO SCH (09:55)
[2018-12-04] MEDS: Folic Acid TAB* 1 MG PO SCH (09:55)
[2018-12-04] MEDS: Losartan TAB* 25 MG PO SCH (09:55)
[2018-12-04] MEDS: Finasteride TAB* 5 MG PO SCH (09:55)
[2018-12-04] MEDS: Gabapentin CAP(*) 100 MG PO SCH ×2 (09:55→20:58)
[2018-12-04] MEDS: Hydrocortisone 1% CREAM* 30 GM TUBE TOPICAL SCH ×5 (09:56→22:35)
--- NOTE | 2018-12-04 12:00 | PN ---
Progress Note Date of Service: 12/04/18 Note: CHAPINCITO MORALES was visited. Therapy notes read and reviewed. Slept ok last night. He seems to be doing a little better. Current Medications: Active Medications Generic Name Dose Route Start Last Admin Trade Name Freq PRN Reason Stop Dose Admin Acetaminophen 650 mg 11/18/18 12:20 12/02/18 16:56 Tylenol Tab* PO 650 mg Q6H PRN Administration MILD PAIN or TEMP > 100.4 Albuterol 2 puff 11/21/18 13:52 12/01/18 09:00 Ventolin Hfa Inhaler* INH 2 puff Q6H PRN Administration SOB/WHEEZING Apixaban 2.5 mg 11/28/18 09:00 12/04/18 09:53 Eliquis* PO 2.5 mg BID INDU Administration Atorvastatin Calcium 10 mg 11/19/18 17:00 12/03/18 16:50 Lipitor* PO 10 mg 1700 INDU Administration Bisacodyl 10 mg 11/18/18 12:20 Dulcolax Supp* [place] DAILY PRN CONSTIPATION Clonazepam 0.5 mg 11/23/18 17:44 12/04/18 00:40 Klonopin Tab(*) PO 0.5 mg BEDTIME PRN Administration ANXIETY Docusate Sodium 100 mg 11/18/18 21:00 12/04/18 09:53 Colace Cap* PO 100 mg BID INDU Administration Finasteride 5 mg 11/19/18 09:00 12/04/18 09:55 Proscar Tab* PO 5 mg DAILY INDU Administration Folic Acid 1 mg 11/19/18 09:00 12/04/18 09:55 Folvite Tab* PO 1 mg DAILY INDU Administration Gabapentin 100 mg 12/02/18 21:00 12/04/18 09:55 Neurontin Cap(*) PO 100 mg BID INDU Administration Hydralazine HCl 10 mg 11/20/18 10:51 11/20/18 23:09 Apresoline Tab* PO 10 mg Q8H PRN Administration Systolic Bp Greater Than: 180 Hydrocortisone 1 applic 11/29/18 09:00 12/04/18 09:56 Hytone Cream 1%* TOPICAL 1 applic QID INDU Administration Losartan Potassium 50 mg 11/28/18 09:00 12/04/18 09:55 Cozaar Tab* PO 50 mg DAILY INDU Administration Magnesium Hydroxide 30 ml 11/18/18 12:20 Milk Of Magnesia Liq* PO Q6H PRN CONSTIPATION Melatonin 3 mg 11/26/18 21:00 12/03/18 20:50 Melatonin PO 3 mg BEDTIME INDU Administration Pantoprazole Sodium 40 mg 11/19/18 09:00 12/04/18 09:55 Protonix Tab* PO 40 mg DAILY INDU Administration Pramipexole Dihydrochloride 0.25 mg 11/26/18 21:00 12/03/18 20:49 Mirapex Tab* PO 0.25 mg BEDTIME INDU Administration Senna 2 tab 11/18/18 12:20 11/30/18 21:30 Senokot 8.6 Mg Tab* PO 2 tab BEDTIME PRN Administration CONSTIPATION Tamsulosin HCl 0.4 mg 11/26/18 21:00 12/03/18 20:50 Flomax Cap* PO 0.4 mg BEDTIME INDU Administration Tiotropium [place] 2 puff 11/24/18 09:00 12/04/18 09:04 Spiriva Respimat 2.5 Mcg INH 2 puff DAILY INDU Administration Vital Signs: Vital Signs Temp Pulse Resp BP Pulse Ox 97.4 F 71 14 149/66 93 12/04/18 04:59 12/04/18 09:06 12/04/18 09:55 12/04/18 04:59 12/04/18 09:06 Exam: GENERAL: alert and appropriate LUNGS: Clear to auscultation bilaterally HEART: Regular rate and rhythm ABDOMEN: Soft, + bowel sounds, non-tender, non-distended EXTREMITIES: Decreased tone LUE NEUROLOGIC: Left facial droop. RUE and RLE 5/5 motor throughout. Left motor bic 2, tri 2-3, wrist 0, finger flexion 3, hip flex 4, knee ext 4, DF 4. Sensation intact. SKIN: fading macular papular rash on back. Left chest abrasion clean. Small eschars on left cheek and left scalp. Assessment/Plan: 1. 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 CT reviewed by Dr. Peck. Eliquis 2.5mg bid.May increase to 5 as BUN/Cr normal 2. Hypercholesterolemia: Lipitor 3. DVT Prophylaxis: eliquis 4. Dysphagia: Pureed solids/nectar thick liquids 5. Hypertension: Hydralazine PRN. Increased Cozaar to 50mg qday . 6. BPH: Proscar and flomax per home urologist 7. COPD: Albuterol and Spiriva for COPD 8. Advance Directives: Has MOLST. DNR 9. Paroxysmal Atrial fibrillation: Eliquis 10. Chronic kidney disease: BUN/Cr normal. 11. Restless leg syndrome: pramipexole and melatonin at night. 12. Rash on back: hydrocortisone qid prn. Monitor. 12/04/18 12:00 12/04/18 12:00
[2018-12-04] MEDS: Atorvastatin* 10 MG TAB PO SCH (18:16)
[2018-12-04] MEDS: Albuterol HFA INHALER* 8 gm MDI INH PRN (19:23)
[2018-12-04] MEDS: Acetaminophen TAB* 325 MG PO PRN (20:57)
[2018-12-04] MEDS: Pramipexole TAB* 0.125 MG PO SCH (20:57)
[2018-12-04] MEDS: Tamsulosin CAP* 0.4 MG PO SCH (20:59)
[2018-12-04] MEDS: Melatonin 3 MG TAB PO SCH (21:00)
[2018-12-04] MEDS: Senna TAB 8.6 mg* TAB PO PRN (21:03)
[2018-12-05] MEDS: Acetaminophen TAB* 325 MG PO PRN (06:25)
[2018-12-05] MEDS: SPIRIVA Respimat* (tiotropium) 2.5 mcg/inh Inhaler INH SCH (08:33)
[2018-12-05] MEDS: Docusate CAP* 100 MG PO SCH ×2 (08:57→21:04)
[2018-12-05] MEDS: Apixaban* 2.5 MG TAB PO SCH ×2 (08:57→21:04)
[2018-12-05] MEDS: Folic Acid TAB* 1 MG PO SCH (08:58)
[2018-12-05] MEDS: Gabapentin CAP(*) 100 MG PO SCH ×2 (08:58→21:05)
[2018-12-05] MEDS: Losartan TAB* 25 MG PO SCH (09:00)
[2018-12-05] MEDS: Hydrocortisone 1% CREAM* 30 GM TUBE TOPICAL SCH ×4 (09:00→21:04)
[2018-12-05] MEDS: Pantoprazole TAB * 40 MG TAB PO SCH (09:01)
[2018-12-05] MEDS: Finasteride TAB* 5 MG PO SCH (09:07)
--- NOTE | 2018-12-05 10:03 | PN ---
Progress Note Date of Service: 12/05/18 Note: CHAPINCITO MORALES SR was visited. Nursing notes read and reviewed. Better movement in his left leg. Left arm remains impaired. Current Medications: Active Medications Generic Name Dose Route Start Last Admin Trade Name Freq PRN Reason Stop Dose Admin Acetaminophen 650 mg 11/18/18 12:20 12/05/18 06:25 Tylenol Tab* PO 650 mg Q6H PRN Administration MILD PAIN or TEMP > 100.4 Albuterol 2 puff 11/21/18 13:52 12/04/18 19:23 Ventolin Hfa Inhaler* INH 2 puff Q6H PRN Administration SOB/WHEEZING Apixaban 2.5 mg 11/28/18 09:00 12/05/18 08:57 Eliquis* PO 2.5 mg BID INDU Administration Atorvastatin Calcium 10 mg 11/19/18 17:00 12/04/18 18:16 Lipitor* PO 10 mg 1700 INDU Administration Bisacodyl 10 mg 11/18/18 12:20 Dulcolax Supp* [place] DAILY PRN CONSTIPATION Clonazepam 0.5 mg 11/23/18 17:44 12/04/18 00:40 Klonopin Tab(*) PO 0.5 mg BEDTIME PRN Administration ANXIETY Docusate Sodium 100 mg 11/18/18 21:00 12/05/18 08:57 Colace Cap* PO 100 mg BID INDU Administration Finasteride 5 mg 11/19/18 09:00 12/05/18 09:07 Proscar Tab* PO 5 mg DAILY INDU Administration Folic Acid 1 mg 11/19/18 09:00 12/05/18 08:58 Folvite Tab* PO 1 mg DAILY INDU Administration Gabapentin 100 mg 12/02/18 21:00 12/05/18 08:58 Neurontin Cap(*) PO 100 mg BID INDU Administration Hydralazine HCl 10 mg 11/20/18 10:51 11/20/18 23:09 Apresoline Tab* PO 10 mg Q8H PRN Administration Systolic Bp Greater Than: 180 Hydrocortisone 1 applic 11/29/18 09:00 12/05/18 09:00 Hytone Cream 1%* TOPICAL 1 applic QID INDU Administration Losartan Potassium 50 mg 11/28/18 09:00 12/05/18 09:00 Cozaar Tab* PO 50 mg DAILY INDU Administration Magnesium Hydroxide 30 ml 11/18/18 12:20 Milk Of Magnesia Liq* PO Q6H PRN CONSTIPATION Melatonin 3 mg 11/26/18 21:00 12/04/18 21:00 Melatonin PO 3 mg BEDTIME INDU Administration Pantoprazole Sodium 40 mg 11/19/18 09:00 12/05/18 09:01 Protonix Tab* PO 40 mg DAILY INDU Administration Pramipexole Dihydrochloride 0.25 mg 11/26/18 21:00 12/04/18 20:57 Mirapex Tab* PO 0.25 mg BEDTIME INDU Administration Senna 2 tab 11/18/18 12:20 12/04/18 21:03 Senokot 8.6 Mg Tab* PO 2 tab BEDTIME PRN Administration CONSTIPATION Tamsulosin HCl 0.4 mg 11/26/18 21:00 12/04/18 20:59 Flomax Cap* PO 0.4 mg BEDTIME INDU Administration Tiotropium [place] 2 puff 11/24/18 09:00 12/05/18 08:33 Spiriva Respimat 2.5 Mcg INH 2 puff DAILY INDU Administration Vital Signs: Vital Signs Temp Pulse Resp BP Pulse Ox 98.4 F 81 14 144/64 98 12/05/18 04:51 12/05/18 08:37 12/05/18 08:58 12/05/18 04:51 12/05/18 08:37 Exam: GENERAL: alert and appropriate LUNGS: Clear to auscultation bilaterally HEART: Regular rate and rhythm ABDOMEN: Soft, + bowel sounds, non-tender, non-distended EXTREMITIES: Decreased tone LUE NEUROLOGIC: Left facial droop. RUE and RLE 5/5 motor throughout. Left motor bic 2, tri 2-3, wrist 0, finger flexion 3, hip flex 4, knee ext 4, DF 4. Sensation intact. SKIN: fading macular papular rash on back. Left chest abrasion clean. Assessment/Plan: 1. 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 CT reviewed by Dr. Peck. Eliquis 2.5mg bid.May increase to 5 as BUN/Cr normal 2. Hypercholesterolemia: Lipitor 3. DVT Prophylaxis: eliquis 4. Dysphagia: Pureed solids/nectar thick liquids 5. Hypertension: Hydralazine PRN. Increased Cozaar to 50mg qday . 6. BPH: Proscar and flomax per home urologist 7. COPD: Albuterol and Spiriva for COPD 8. Advance Directives: Has MOLST. DNR 9. Paroxysmal Atrial fibrillation: Eliquis 10. Chronic kidney disease: BUN/Cr normal. 11. Restless leg syndrome: pramipexole and melatonin at night. 12. Rash on back: hydrocortisone qid prn. Monitor. 12/05/18 10:04
[2018-12-05] MEDS: Atorvastatin* 10 MG TAB PO SCH (16:53)
[2018-12-05] MEDS: Albuterol HFA INHALER* 8 gm MDI INH PRN (20:21)
[2018-12-05] MEDS: Pramipexole TAB* 0.125 MG PO SCH (21:04)
[2018-12-05] MEDS: Tamsulosin CAP* 0.4 MG PO SCH (21:05)
[2018-12-05] MEDS: clonazePAM TAB(*) 0.5 MG PO PRN (21:05)
[2018-12-05] MEDS: Melatonin 3 MG TAB PO SCH (21:05)
[2018-12-06] MEDS: Acetaminophen TAB* 325 MG PO PRN (05:20)
[2018-12-06] MEDS: SPIRIVA Respimat* (tiotropium) 2.5 mcg/inh Inhaler INH SCH (08:05)
[2018-12-06] MEDS: Docusate CAP* 100 MG PO SCH ×2 (08:28→21:27)
[2018-12-06] MEDS: Apixaban* 2.5 MG TAB PO SCH ×2 (08:28→21:28)
[2018-12-06] MEDS: Finasteride TAB* 5 MG PO SCH (08:28)
[2018-12-06] MEDS: Pantoprazole TAB * 40 MG TAB PO SCH (08:28)
[2018-12-06] MEDS: Gabapentin CAP(*) 100 MG PO SCH ×2 (08:28→21:29)
[2018-12-06] MEDS: Hydrocortisone 1% CREAM* 30 GM TUBE TOPICAL SCH ×4 (08:28→21:27)
[2018-12-06] MEDS: Folic Acid TAB* 1 MG PO SCH (08:29)
[2018-12-06] MEDS: Losartan TAB* 25 MG PO SCH (08:29)
[2018-12-06] MEDS: Pramipexole TAB* 0.125 MG PO SCH (09:30)
[2018-12-06] MEDS: Atorvastatin* 10 MG TAB PO SCH (17:04)
--- NOTE | 2018-12-06 18:26 | PN ---
Progress Note Date of Service: 12/06/18 Note: CHAPINCITO MORALES SR was visited. Therapy notes read and reviewed. Seems more upbeat today and doing okay overall. Current Medications: Active Medications Generic Name Dose Route Start Last Admin Trade Name Freq PRN Reason Stop Dose Admin Acetaminophen 650 mg 11/18/18 12:20 12/06/18 05:20 Tylenol Tab* PO 650 mg Q6H PRN Administration MILD PAIN or TEMP > 100.4 Albuterol 2 puff 11/21/18 13:52 12/05/18 20:21 Ventolin Hfa Inhaler* INH 2 puff Q6H PRN Administration SOB/WHEEZING Apixaban 2.5 mg 11/28/18 09:00 12/06/18 08:28 Eliquis* PO 2.5 mg BID INDU Administration Atorvastatin Calcium 10 mg 11/19/18 17:00 12/06/18 17:04 Lipitor* PO 10 mg 1700 INDU Administration Bisacodyl 10 mg 11/18/18 12:20 Dulcolax Supp* [place] DAILY PRN CONSTIPATION Clonazepam 0.5 mg 11/23/18 17:44 12/05/18 21:05 Klonopin Tab(*) PO 0.5 mg BEDTIME PRN Administration ANXIETY Docusate Sodium 100 mg 11/18/18 21:00 12/06/18 08:28 Colace Cap* PO 100 mg BID INDU Administration Finasteride 5 mg 11/19/18 09:00 12/06/18 08:28 Proscar Tab* PO 5 mg DAILY INDU Administration Folic Acid 1 mg 11/19/18 09:00 12/06/18 08:29 Folvite Tab* PO 1 mg DAILY INDU Administration Gabapentin 100 mg 12/02/18 21:00 12/06/18 08:28 Neurontin Cap(*) PO 100 mg BID INDU Administration Hydralazine HCl 10 mg 11/20/18 10:51 11/20/18 23:09 Apresoline Tab* PO 10 mg Q8H PRN Administration Systolic Bp Greater Than: 180 Hydrocortisone 1 applic 11/29/18 09:00 12/06/18 17:04 Hytone Cream 1%* TOPICAL 1 applic QID INDU Administration Losartan Potassium 50 mg 11/28/18 09:00 12/06/18 08:29 Cozaar Tab* PO 50 mg DAILY INDU Administration Magnesium Hydroxide 30 ml 11/18/18 12:20 Milk Of Magnesia Liq* PO Q6H PRN CONSTIPATION Melatonin 3 mg 11/26/18 21:00 12/05/18 21:05 Melatonin PO 3 mg BEDTIME INDU Administration Pantoprazole Sodium 40 mg 11/19/18 09:00 12/06/18 08:28 Protonix Tab* PO 40 mg DAILY INDU Administration Pramipexole Dihydrochloride 0.25 mg 11/26/18 21:00 12/05/18 21:04 Mirapex Tab* PO 0.25 mg BEDTIME INDU Administration Senna 2 tab 11/18/18 12:20 12/04/18 21:03 Senokot 8.6 Mg Tab* PO 2 tab BEDTIME PRN Administration CONSTIPATION Tamsulosin HCl 0.4 mg 11/26/18 21:00 12/05/18 21:05 Flomax Cap* PO 0.4 mg BEDTIME INDU Administration Tiotropium [place] 2 puff 11/24/18 09:00 12/06/18 08:05 Spiriva Respimat 2.5 Mcg INH 2 puff DAILY INDU Administration Vital Signs: Vital Signs Temp Pulse Resp BP Pulse Ox 97.7 F 68 17 146/48 96 12/06/18 15:30 12/06/18 15:30 12/06/18 15:30 12/06/18 15:30 12/06/18 15:30 Exam: GENERAL: alert and appropriate LUNGS: Clear to auscultation bilaterally HEART: Regular rate and rhythm ABDOMEN: Soft, + bowel sounds, non-tender, non-distended EXTREMITIES: Decreased tone LUE NEUROLOGIC: Left facial droop. RUE and RLE 5/5 motor throughout. Left motor bic 2, tri 2-3, wrist 0, finger flexion 3, hip flex 4, knee ext 4, DF 4. Sensation intact. Assessment/Plan: 1. 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 CT reviewed by Dr. Peck. Eliquis 2.5mg bid.May increase to 5 as BUN/Cr normal 2. Hypercholesterolemia: Lipitor 3. DVT Prophylaxis: eliquis 4. Dysphagia: Pureed solids/nectar thick liquids 5. Hypertension: Hydralazine PRN. Increased Cozaar to 50mg qday . 6. BPH: Proscar and flomax per home urologist 7. COPD: Albuterol and Spiriva for COPD 8. Advance Directives: Has MOLST. DNR 9. Paroxysmal Atrial fibrillation: Eliquis 10. Chronic kidney disease: BUN/Cr normal. 11. Restless leg syndrome: pramipexole and melatonin at night. 12. Rash on back: hydrocortisone qid prn. Monitor. 12/05/18 10:04
[2018-12-06] MEDS: Tamsulosin CAP* 0.4 MG PO SCH (21:27)
[2018-12-06] MEDS: Melatonin 3 MG TAB PO SCH (21:28)
[2018-12-06] MEDS: clonazePAM TAB(*) 0.5 MG PO PRN (23:52)
[2018-12-07] MEDS: SPIRIVA Respimat* (tiotropium) 2.5 mcg/inh Inhaler INH SCH (07:28)
[2018-12-07] MEDS: Folic Acid TAB* 1 MG PO SCH (09:31)
[2018-12-07] MEDS: Gabapentin CAP(*) 100 MG PO SCH ×2 (09:31→19:50)
[2018-12-07] MEDS: Pantoprazole TAB * 40 MG TAB PO SCH (09:31)
[2018-12-07] MEDS: Finasteride TAB* 5 MG PO SCH (09:31)
[2018-12-07] MEDS: Losartan TAB* 25 MG PO SCH (09:31)
[2018-12-07] MEDS: Apixaban* 2.5 MG TAB PO SCH ×2 (09:31→19:49)
[2018-12-07] MEDS: Docusate CAP* 100 MG PO SCH ×2 (09:31→19:49)
[2018-12-07] MEDS: Hydrocortisone 1% CREAM* 30 GM TUBE TOPICAL SCH ×4 (09:35→19:50)
[2018-12-07] MEDS: Acetaminophen TAB* 325 MG PO PRN (10:51)
--- NOTE | 2018-12-07 12:58 | PMRUTEAM ---
PMRU: Team Meeting Current Status: Nursing: Current Status Skin Deviations [L dorsal ft, Abrasion toes] Skin Deviations [Back] Rash Skin Deviations [Right Upper Abrasion Arm] Skin Deviations [Left Elbow] Abrasion Skin Deviations [Left Abrasion Posterior Neck] Skin Deviations [Left Temporal Abrasion ] Skin Deviations [Right Foot] Abrasion Skin Deviations [Left Heel] Abrasion Skin Deviations [Right Elbow] Abrasion Skin Deviations [Left Lateral Abrasion Knee] Skin Deviations [Left Chest] Abrasion Skin Deviations [Left Upper Abrasion Arm] Skin Deviations [Left Shoulder Abrasion ] Skin Deviations [Left Cheek] Abrasion Skin Deviation Description [L healing dorsal ft, toes] Skin Deviation Description [ healed Back] Skin Deviation Description [ healing Right Upper Arm] Skin Deviation Description [ healing Left Elbow] Skin Deviation Description [ healing Left Posterior Neck] Skin Deviation Description [ scabbed and healing well Left Temporal] Skin Deviation Description [ healing Right Foot] Skin Deviation Description [ multipoduce boots in place Left Heel] Skin Deviation Description [ healing Right Elbow] Skin Deviation Description [ healing Left Lateral Knee] Skin Deviation Description [ healed Left Chest] Skin Deviation Description [ healing Left Upper Arm] Skin Deviation Description [ healing Left Shoulder] Skin Deviation Description [ healing Left Cheek] Bladder Current Status voids, incontinent Bowel Current Status last bm 12/05 Nutrition Current Status appetite good, tolerating nectar thick fluids, pureed food without difficulty Medication Current Status needs reinforcement Physical Therapy: Current Status Bed Mobility Assistance Mod Assist Transfer Mobility Assistance Min Assist,Mod Assist,2 or More Person Assist Transfer/Bed Mobility Railings,EZ Stand Recommended Devices Ambulation Assistance Unable Ambulation Assistive Devices Large Base Quad Cane,Platform Walker,Balbir Walker Stairs Assistance Not Tested Stairs Recommended Devices Quad Cane Number of Stairs 3 Manual Wheelchair Control/ Right UE/Right LE Technique Wheelchair Propulsion Ability Moderate Assistance Wheelchair Distance (ft) 150 Objective Comments patient is noted to have poor motor planning, requires frequent (every 15-30 sec) verbal cues to remain on task and simple, 1 step commands to complete motor tasks. w/c mobility with RLE and RUE with moderate assist and w/c mobility with B LEs with constant verbal cues to "kick L leg out, pull back" Occupational Therapy: Current Status Upper Body Dressing Mod Assist,Max Asst Lower Body Dressing Total Assist,2 Person Assist Bathing Mod Assist,2 Person Assist Bathing Progress s Toileting Total Assist,2 Person Assist Toilet Transfer Total Assist,2 Person Assist Toilet Transfer Progress EZ stand Shower Transfer Total Assist,2 Person Assist Shower Transfer Progress N/A Eating Supervision Eating Progress set-up Rec Therapy: Current Status Summary of Assessment and Recreation Therapy assessment complete and pt. is Clinical Impression aware of services. Pt. has been active in pet therapy and leisure visits with activities being provided to him for independent engagement. Treatment Goals Pt. will engage in leisure activities while on the unit. Treatment Plan Provide recreation therapy services and encourage involvement. Nutrition: Current Status Monitoring Pt continues on regular diet receiving pureed textures and nectar thickened liquids per ANALYTICAL TECH recommendations w/ good intake; consumed 95-100% x3 last meals. Chart reviewed: no noted GI s/sx ( last BM 12/01 per chart; bowel meds given this AM); recommend continuing standing bowel meds if bowel regularity not met w/ adequate po intake; will monitor GI s/sx for impact on intake. No evidence of difficulty chewing/swallowing w/ pureed textures and nectar thickened liquids (ANALYTICAL TECH following; last eval 12/03); will follow ANALYTICAL TECH recommendations for ability to advance diet and continue to monitor tolerance. No pressure related skin breakdown per chart. Labs reviewed: Electrolytes WNL; BG 136 last AM (Appropriate). Agree w/ current diet order. Will continue to monitor and provide further nutrition intervention as indicated. Speech: Current Status Assessment Patient and family participated in Stroke education session. Goals: Physical Therapy: Initial Goals Bed Mobility Assistance Independent Transfer Mobility Assistance Independent Transfer/Bed Mobility Large Base Quad Cane Recommended Devices Ambulation Independent Ambulation Recommended Devices Large Base Quad Cane Ambulation Distance 150 Stairs Assistance Independent Stair Recommended Devices One Rail Number of Stairs 8 Physical Therapy: Updated Goals Transfer/Bed Mobility EZ Stand Recommended Devices Occupational Therapy: Initial Goals Goals to be Completed in (Days 4-6 weeks ) Upper Body Bathing Routine Modified Independent with Lower Body Bathing Routine Modified Independent with Upper Body Dressing Routine Modified Independent with Lower Body Dressing Routine Modified Independent with Toilet Hygeine and Clothing Modified Independent with Management Routine Toilet Transfer Routine Modified Independent with Tub Transfer Routine Modified Independent with Functional Transfers for ADL Modified Independent with Grooming Routine Modified Independent with Feeding Routine Modified Independent with Nursing: Goals Bladder Goal independent Bowel Goal independent Nutrition Goal 100% of all meals consumed Medication Goal independent Nutrition: Goals Intervention Goals 1) Pt will tolerate least restrictive dietary textures w/o further difficulty swallowing 2) Adequate po intake to support lean body mass and hydration status 3) Maintain fluid/electrolyte balance w/ adequate po intake 4) Improve bowel regularity w/ adequate po intake and standing bowel meds w/o exac of constipation/ development of diarrhea Speech: Goals Speech Goal 1 Swallowing Speech Evaluation Status Goal Moderate 1 Goal 1 Comments Long-Term Goal: Patient will tolerate least restrictive diet consistencies w/ no stasis or clinical s/s aspiration Short Term Goals: 1) Pt will Independently use compensatory strategies to tolerate soft solid consistencies w/ no difficulty, minimal globus sensation and no clinical s/s aspiration, given Moderate cueing. Status; Progressing as expected. ANALYTICAL TECH reviewed lingual exercises to lateralize and medialize an oral spong, then applied tat skill to trials of ashok cracker. Patient demonstrated poor control of bolus and reduced awareness of unchewed pieces in his Left buccal sulcus. Given moderste cueing, patient efective pushed his tiongue from back to front and swept residue from his buccal sulcus. Patient demonstrated intermittent dry coughing, indicating probable posterior spillage of crumbs to the pharynx. 2) Pt will use compensatory strategies to tolerate 20/20 trials of thin liquid over two sessions, w/ no clinical s/s aspiration, given Moderate cueing. Status: Progressing as expected. 3) Pt will use compensatory strategies to tolerate 10/10 trials of nectar liquid over two sessions, w/ no clinical s/s aspiration, given Minimal cueing. Status: Met. Speech Goal 2 Speech Speech Goal 2 Evaluation Mild Status Speech Goal 2 Comments Motor-speech Long-Term Goal: Pt will I'ly speak with 100% intelligibility Status: Progressing as expected Short-Term Goal 1: Pt will use compensatory strategies to increase speech intelligibility to 95% in spontaneous conversational speech, given minimal cueing. Status: Progressing as expected Patient required min-mod cueing to read aloud at steady pace and loudness with 100% intelligibility . Speech Goal 3 Problem Solving Speech Goal 3 Evaluation Moderate Status Speech Goal 3 Comments Problem Solving Goals: Long-Term Goal: Pt will use compensatory strategies to solve moderately complex routine problems, for reading, time and money management; with 100% accuracy, Independently. Status: Progressing as expected Short-Term Goal: Pt will use compensatory strategies to solve simple routine problems, for reading, time and money management; with 80% accuracy, given skilled instruction, Moderate cueing, and extra time. Status: Progessing as expected. Patient summarized 3-paragraph article given moderate-maximum cueing to identify foreman names and sequence of actions. Care Plan: Care Plan ADL's - Improve/Maintain Start: 11/18/18 15:55 Freq: DAILY@0700,1900 Status: Active Target: 12/31/18 Protocol: Activity Type Activity Date Activity User E-Sign Co-Sign Detail Recorded Client Recorded Date Recorded By Document 12/06/18 16:10 [id number] [email or web address] 12/06/18 16:10 [id number] 12/06/18 16:10 PMRU Outcome: ADL's/ADL Transfers Orders/Interventions Occupational Therapy Evaluation & Treatment Communication Tool in Patient Room Device Yes Address Deficits Secondary To: R CVA Patient to receive OT 5x/wk for 60-120 Therex min/day Self Care Management Group Therapy Neuromuscular ReEducation UE/LE ADL's with Assist Yes: Efraín ADL Transfers with Assist Yes: Efraín Toileting: Transfers,Clothing Management Yes: Efraín ,Hygeine w/Assist Light Kitchen/Laundry w/Assist No Other Outcome/Goals Pt is showing mild improvement in ability to maintain midline posture while transferring in EZ stand. Pt was alert this session and did not fall asleep. Noted trace movements in L index finger. Progression Toward Outcome/Goals Progressing Cardiovascular- Improve/Maintain Start: 11/18/18 16:25 Freq: DAILY@0700,1900 Status: Active Target: 12/09/18 Protocol: Activity Type Activity Date Activity User E-Sign Co-Sign Detail Recorded Client Recorded Date Recorded By Document 12/07/18 09:00 [id number] [email or web address] 12/07/18 12:31 [id number] 12/07/18 09:00 PMRU Outcome: Cardiovascular Vital Signs q Shift for 48hrs Then BID Yes Daily Weight Ordered No Current Cardiovascular Outcome/Goal Maintain/ Achieve Baseline HR, BP , Perfusion Free of Abnormal Cardiac Symptoms Progression Toward Outcome/Goal Progressing Communication-Improve/Maintain Start: 11/19/18 14:45 Freq: DAILY@0700,1900 Status: Active Target: 12/09/18 Protocol: Activity Type Activity Date Activity User E-Sign Co-Sign Detail Recorded Client Recorded Date Recorded By Document 12/07/18 09:00 [id number] [email or web address] 12/07/18 12:31 [id number] 12/07/18 09:00 PMRU Outcome: Communication/Cognitive Status Current Communication Outcome/Goals Makes Needs Known Effectively Progression Toward Outcomes/Goals Progressing DVT Prophylaxis- Improve/Maintain Start: 11/18/18 16:25 Freq: DAILY@0700,1900 Status: Active Target: 12/09/18 Protocol: Activity Type Activity Date Activity User E-Sign Co-Sign Detail Recorded Client Recorded Date Recorded By Document 12/07/18 09:00 [id number] [email or web address] 12/07/18 12:31 [id number] 12/07/18 09:00 PMRU Outcome: DVT Prophylaxis Current DVT Outcome/Goals Remains Free of DVT Complies with DVT Prophylaxis /Treatment Demonstrates Knowledge of DVT Prevention/ Treatment TEDS Stockings on Every AM, Off at HS Progression Toward Outcome/Goals Progressing Discharge Planning - Improve/Maintain Start: 11/18/18 16:25 Freq: DAILY@699,1899 Status: Active Target: 12/09/18 Protocol: Activity Type Activity Date Activity User E-Sign Co-Sign Detail Recorded Client Recorded Date Recorded By Document 12/07/18 09:00 [id number] [email or web address] 12/07/18 12:31 [id number] 12/07/18 09:00 PMRU Outcome: Discharge Planning Current Discharge Planning Outcome/Goals Demonstrates Understanding of Discharge Plan Homecare Referral - See Comment Progression Toward Outcome/Goals Progressing Education-Improve/Maintain Start: 11/18/18 16:25 Freq: DAILY@699,1900 Status: Active Target: 12/24/18 Protocol: Activity Type Activity Date Activity User E-Sign Co-Sign Detail Recorded Client Recorded Date Recorded By Document 12/07/18 09:00 [id number] [email or web address] 12/07/18 12:31 [id number] 12/07/18 09:00 PMRU Outcome: Education Current Education Outcome/Goals Demonstrate/ Verbalize Understanding of Written Discharge Instructions Demonstrates Skills Encourage Questions Progression Toward Outcome/Goals Progressing /GI-Improve/Maintain Start: 11/18/18 16:25 Freq: DAILY@0700,1900 Status: Active Target: 12/09/18 Protocol: Activity Type Activity Date Activity User E-Sign Co-Sign Detail Recorded Client Recorded Date Recorded By Document 12/07/18 09:00 [id number] [email or web address] 12/07/18 12:31 [id number] 12/07/18 09:00 PMRU Outcome: Genitourinary/ Gastrointestinal Current Gastrointestinal Outcome/Goals Maintain/ Achieve Bowel Regularity in Accordance with Pt's Baseline Remain Free of Emesis Prevent Constipation Laxatives as Ordered Progression Toward Outcome/Goals Progressing Current Genitourinary Outcome/Goals Maintain/ Achieve Urinary Continence Remain Free of Hospital- Acquired UTI Progression Toward Outcome/Goals Progressing Medication Administration Start: 11/18/18 16:25 Freq: DAILY@0700,1900 Status: Active Target: 12/24/18 Protocol: Activity Type Activity Date Activity User E-Sign Co-Sign Detail Recorded Client Recorded Date Recorded By Document 12/07/18 09:00 [id number] [email or web address] 12/07/18 12:31 [id number] 12/07/18 09:00 PMRU Outcome: Medication Administration Assess Patient Knowledge/Teach Med Yes Education for all Meds Current Maintenance Painter Outcome/Goals Family/ Caregiver Administer Medications at Home Demonstrates Understanding Progression Towards Outcome/Goals Progressing Is Patient Going Home on Lovenox? No Mobility- Improve/Maintain Start: 11/18/18 17:21 Freq: DAILY@699,0 Status: Active Target: 12/24/18 Protocol: Activity Type Activity Date Activity User E-Sign Co-Sign Detail Recorded Client Recorded Date Recorded By Document 12/06/18 16:14 [id number] [email or web address] 12/06/18 16:14 [id number] 12/06/18 16:14 PMRU Outcome: Mobility Physical Therapy Evaluation and Yes Treatment Activity OOB with Assistance Yes WBAT Yes Device Yes Assistance Yes Patient to be seen 5x/wk for 60-120 min/ Therex day for: Mobility Training Gait Training W/C Mobility Balance Current Mobility Outcome/Goals Maintain/ Achieve Baseline Mobility Status Improve Mobility Status Demonstrates Proper Use of Assistive Devices Free from Complications of Immobility Progression Toward Outcome/Goals Progressing Outcome/Goals Met Improve Mobility Status Bed Mobility Yes: independent Transfers Yes: independent with LBQC Gait x ft Yes: independent with LBQC Up/Down Stairs Yes: independent up/ down 8 stairs with 1 rail Neurological- Improve/Maintain Start: 11/18/18 16:25 Freq: DAILY@699,1900 Status: Active Target: 12/09/18 Protocol: Activity Type Activity Date Activity User E-Sign Co-Sign Detail Recorded Client Recorded Date Recorded By Document 12/07/18 09:00 [id number] [email or web address] 12/07/18 12:31 [id number] 12/07/18 09:00 PMRU Outcome: Neurological Weakness/Aphasia Weakness Left Side Current Neurological Outcome/Goals Maintain/ Achieve Baseline Neurological Status Improve Neurological Status Prevent Avoidable Neurological Decline Demonstrate Knowledge of Prevention/Tx of Neuro Disorders/ Complication Maintain/ Improve Strength/ROM Progression Toward Outcome/Goals Progressing Nutrition/Swallowing- Improve/Maintain Start: 11/18/18 16:25 Freq: DAILY@0700,1900 Status: Active Target: 12/09/18 Protocol: Activity Type Activity Date Activity User E-Sign Co-Sign Detail Recorded Client Recorded Date Recorded By Document 12/07/18 03:17 [id number] [email or web address] 12/07/18 03:19 [id number] 12/07/18 03:17 PMRU Outcome: Nutrition/Swallowing Current Nutrition/Swallowing Outcome/ Demonstrates Goals Adequate Hydration/ Prevents Dehydration Maintain/ Improve Nutritional Status Progression Toward Outcome/Goals Progressing Outcome/Goals Met Comment continuing with nectar thick and pureed fluids per order Rec Therapy- Improve/Maintain Start: 11/19/18 08:48 Freq: DAILY@0700,1900 Status: Active Target: 12/31/18 Protocol: Activity Type Activity Date Activity User E-Sign Co-Sign Detail Recorded Client Recorded Date Recorded By Document 11/24/18 16:47 [id number] [email or web address] 11/24/18 16:47 [id number] 11/24/18 16:47 PMRU Outcome: Recreation Therapy Current Rec Ther Outcome/Goals Meet with Patient Regularly for Support Encourage Leisure Involvement Progression Toward Outcome/Goals Progressing Lack of Progression Comment pt. continues to welcome leisure visits and support. Outcome/Goals Met Complete Rec Therapy Assessment Respiratory - Improve/Maintain Start: 11/18/18 16:25 Freq: DAILY@0700,1900 Status: Active Target: 12/09/18 Protocol: Activity Type Activity Date Activity User E-Sign Co-Sign Detail Recorded Client Recorded Date Recorded By Document 12/07/18 09:00 [id number] [email or web address] 12/07/18 12:31 [id number] 12/07/18 09:00 PMRU Outcome: Respiratory Does Patient Have a Trach No Current Respiratory Outcome/Goals Maintain/ Improve Baseline Respiratory Status Maintain/ Improve Activity Tolerance Prevent Pneumonia/ Atelectasis Remain Aspiration Free Progression Toward Outcome/Goals Progressing Safety- Improve/Maintain Start: 11/18/18 11:45 Freq: DAILY@0700,1900 Status: Active Target: 12/09/18 Protocol: Activity Type Activity Date Activity User E-Sign Co-Sign Detail Recorded Client Recorded Date Recorded By Document 12/07/18 09:00 [id number] [email or web address] 12/07/18 12:31 [id number] 12/07/18 09:00 PMRU Outcome: Safety Current Safety Outcome/Goals Remain Free of Injury or Harm Cooperates with Safety Measures for Least Restrictive Environment Prevent Falls/ Injury Other Safety Outcome/Goals PA/BA on Progression Toward Outcome/Goals Progressing Skin- Improve/Maintain Start: 11/18/18 16:25 Freq: DAILY@0700,1900 Status: Active Target: 12/09/18 Protocol: Activity Type Activity Date Activity User E-Sign Co-Sign Detail Recorded Client Recorded Date Recorded By Document 12/07/18 09:00 [id number] [email or web address] 12/07/18 12:31 [id number] 12/07/18 09:00 PMRU Outcome: Skin Skin Risk Level Mild Risk Skin Orders Multipodus Boot Turn/Position q2hr While in Bed Current Skin Outcome/Goals Maintain/ Improve Skin Integrity Free from Pressure Injury Progression Toward Outcome/Goals Progressing Medicine Note: Length of Stay: 3 1/2 weeks Anticipated Discharge Destination: Tentative Discharge Date: 12/31/18 Discharged to: Home
[2018-12-07] MEDS: Atorvastatin* 10 MG TAB PO SCH (16:37)
[2018-12-07] MEDS: Albuterol HFA INHALER* 8 gm MDI INH PRN (16:38)
[2018-12-07] MEDS: Pramipexole TAB* 0.125 MG PO SCH (19:49)
[2018-12-07] MEDS: Tamsulosin CAP* 0.4 MG PO SCH (19:49)
[2018-12-07] MEDS: Melatonin 3 MG TAB PO SCH (19:50)
--- NOTE | 2018-12-07 21:31 | PN ---
Progress Note Date of Service: 12/07/18 Note: CHAPINCITO MORALES SR was visited. Therapy notes read and reviewed. He was discussed in interdisciplinary team rounds. He is moking some gains but will need to meet with son to discuss plans after d/c Current Medications: Active Medications Generic Name Dose Route Start Last Admin Trade Name Freq PRN Reason Stop Dose Admin Acetaminophen 650 mg 11/18/18 12:20 12/07/18 10:51 Tylenol Tab* PO 650 mg Q6H PRN Administration MILD PAIN or TEMP > 100.4 Albuterol 2 puff 11/21/18 13:52 12/07/18 16:38 Ventolin Hfa Inhaler* INH 2 puff Q6H PRN Administration SOB/WHEEZING Apixaban 2.5 mg 11/28/18 09:00 12/07/18 19:49 Eliquis* PO 2.5 mg BID INDU Administration Atorvastatin Calcium 10 mg 11/19/18 17:00 12/07/18 16:37 Lipitor* PO 10 mg 1700 INDU Administration Bisacodyl 10 mg 11/18/18 12:20 Dulcolax Supp* [place] DAILY PRN CONSTIPATION Clonazepam 0.5 mg 11/23/18 17:44 12/06/18 23:52 Klonopin Tab(*) PO 0.5 mg BEDTIME PRN Administration ANXIETY Docusate Sodium 100 mg 11/18/18 21:00 12/07/18 19:49 Colace Cap* PO 100 mg BID INDU Administration Finasteride 5 mg 11/19/18 09:00 12/07/18 09:31 Proscar Tab* PO 5 mg DAILY INDU Administration Folic Acid 1 mg 11/19/18 09:00 12/07/18 09:31 Folvite Tab* PO 1 mg DAILY INDU Administration Gabapentin 100 mg 12/02/18 21:00 12/07/18 19:50 Neurontin Cap(*) PO 100 mg BID INDU Administration Hydralazine HCl 10 mg 11/20/18 10:51 11/20/18 23:09 Apresoline Tab* PO 10 mg Q8H PRN Administration Systolic Bp Greater Than: 180 Hydrocortisone 1 applic 11/29/18 09:00 12/07/18 19:50 Hytone Cream 1%* TOPICAL 1 applic QID INDU Administration Losartan Potassium 50 mg 11/28/18 09:00 12/07/18 09:31 Cozaar Tab* PO 50 mg DAILY INDU Administration Magnesium Hydroxide 30 ml 11/18/18 12:20 Milk Of Magnesia Liq* PO Q6H PRN CONSTIPATION Melatonin 3 mg 11/26/18 21:00 12/07/18 19:50 Melatonin PO 3 mg BEDTIME INDU Administration Pantoprazole Sodium 40 mg 11/19/18 09:00 12/07/18 09:31 Protonix Tab* PO 40 mg DAILY INDU Administration Pramipexole Dihydrochloride 0.25 mg 11/26/18 21:00 12/07/18 19:49 Mirapex Tab* PO 0.25 mg BEDTIME INDU Administration Senna 2 tab 11/18/18 12:20 12/04/18 21:03 Senokot 8.6 Mg Tab* PO 2 tab BEDTIME PRN Administration CONSTIPATION Tamsulosin HCl 0.4 mg 11/26/18 21:00 12/07/18 19:49 Flomax Cap* PO 0.4 mg BEDTIME INDU Administration Tiotropium [place] 2 puff 11/24/18 09:00 12/07/18 07:28 Spiriva Respimat 2.5 Mcg INH 2 puff DAILY INDU Administration Vital Signs: Vital Signs Temp Pulse Resp BP Pulse Ox 97.5 F 61 22 148/52 96 12/07/18 16:00 12/07/18 16:00 12/07/18 20:00 12/07/18 16:00 12/07/18 20:00 Exam: GENERAL: alert and appropriate LUNGS: Clear to auscultation bilaterally HEART: Regular rate and rhythm ABDOMEN: Soft, + bowel sounds, non-tender, non-distended EXTREMITIES: Decreased tone LUE NEUROLOGIC: Left facial droop. RUE and RLE 5/5 motor throughout. Left motor bic 2, tri 2-3, wrist 0, finger flexion 3, hip flex 4, knee ext 4, DF 4. Sensation intact. Assessment/Plan: 1. 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 CTH reviewed by Dr. Peck. Eliquis 2.5mg bid.May increase to 5 as BUN/Cr normal 2. Hypercholesterolemia: Lipitor 3. DVT Prophylaxis: eliquis 4. Dysphagia: Pureed solids/nectar thick liquids 5. Hypertension: Hydralazine PRN. Increased Cozaar to 50mg qday . 6. BPH: Proscar and flomax per home urologist 7. COPD: Albuterol and Spiriva for COPD 8. Advance Directives: Has MOLST. DNR 9. Paroxysmal Atrial fibrillation: Eliquis 10. Chronic kidney disease: BUN/Cr normal. 11. Restless leg syndrome: pramipexole and melatonin at night. 12. Rash on back: hydrocortisone qid prn. Monitor. 12/07/18 21:31
[2018-12-07] MEDS: clonazePAM TAB(*) 0.5 MG PO PRN (23:30)
[2018-12-08] MEDS: Hydrocortisone 1% CREAM* 30 GM TUBE TOPICAL SCH ×4 (08:29→20:32)
[2018-12-08] MEDS: SPIRIVA Respimat* (tiotropium) 2.5 mcg/inh Inhaler INH SCH (08:58)
[2018-12-08] MEDS: Docusate CAP* 100 MG PO SCH ×2 (09:56→20:33)
[2018-12-08] MEDS: Apixaban* 2.5 MG TAB PO SCH ×2 (09:56→20:33)
[2018-12-08] MEDS: Gabapentin CAP(*) 100 MG PO SCH ×2 (09:57→20:33)
[2018-12-08] MEDS: Finasteride TAB* 5 MG PO SCH (09:57)
[2018-12-08] MEDS: Folic Acid TAB* 1 MG PO SCH (09:57)
[2018-12-08] MEDS: Losartan TAB* 25 MG PO SCH (09:57)
[2018-12-08] MEDS: Pantoprazole TAB * 40 MG TAB PO SCH (09:57)
[2018-12-08] MEDS: Atorvastatin* 10 MG TAB PO SCH (17:37)
[2018-12-08] MEDS: Melatonin 3 MG TAB PO SCH (20:33)
[2018-12-08] MEDS: Tamsulosin CAP* 0.4 MG PO SCH (20:33)
[2018-12-08] MEDS: Pramipexole TAB* 0.125 MG PO SCH (20:36)
[2018-12-08] MEDS: clonazePAM TAB(*) 0.5 MG PO PRN (20:44)
--- NOTE | 2018-12-08 21:11 | PN ---
Progress Note Date of Service: 12/08/18 Note: CHAPINCITO MORALES SR was visited. Therapy notes read and reviewed. He feels ok. Will need a family meeting with his son to discuss home/discharge Current Medications: Active Medications Generic Name Dose Route Start Last Admin Trade Name Freq PRN Reason Stop Dose Admin Acetaminophen 650 mg 11/18/18 12:20 12/07/18 10:51 Tylenol Tab* PO 650 mg Q6H PRN Administration MILD PAIN or TEMP > 100.4 Albuterol 2 puff 11/21/18 13:52 12/07/18 16:38 Ventolin Hfa Inhaler* INH 2 puff Q6H PRN Administration SOB/WHEEZING Apixaban 2.5 mg 11/28/18 09:00 12/08/18 20:33 Eliquis* PO 2.5 mg BID INDU Administration Atorvastatin Calcium 10 mg 11/19/18 17:00 12/08/18 17:37 Lipitor* PO 10 mg 1700 INDU Administration Bisacodyl 10 mg 11/18/18 12:20 Dulcolax Supp* [place] DAILY PRN CONSTIPATION Clonazepam 0.5 mg 11/23/18 17:44 12/08/18 20:44 Klonopin Tab(*) PO 0.5 mg BEDTIME PRN Administration ANXIETY Docusate Sodium 100 mg 11/18/18 21:00 12/08/18 20:33 Colace Cap* PO 100 mg BID INDU Administration Finasteride 5 mg 11/19/18 09:00 12/08/18 09:57 Proscar Tab* PO 5 mg DAILY INDU Administration Folic Acid 1 mg 11/19/18 09:00 12/08/18 09:57 Folvite Tab* PO 1 mg DAILY INDU Administration Gabapentin 100 mg 12/02/18 21:00 12/08/18 20:33 Neurontin Cap(*) PO 100 mg BID INDU Administration Hydralazine HCl 10 mg 11/20/18 10:51 11/20/18 23:09 Apresoline Tab* PO 10 mg Q8H PRN Administration Systolic Bp Greater Than: 180 Hydrocortisone 1 applic 11/29/18 09:00 12/08/18 20:32 Hytone Cream 1%* TOPICAL 1 applic QID INDU Administration Losartan Potassium 50 mg 11/28/18 09:00 12/08/18 09:57 Cozaar Tab* PO 50 mg DAILY INDU Administration Magnesium Hydroxide 30 ml 11/18/18 12:20 Milk Of Magnesia Liq* PO Q6H PRN CONSTIPATION Melatonin 3 mg 11/26/18 21:00 12/08/18 20:33 Melatonin PO 3 mg BEDTIME INDU Administration Pantoprazole Sodium 40 mg 11/19/18 09:00 12/08/18 09:57 Protonix Tab* PO 40 mg DAILY INDU Administration Pramipexole Dihydrochloride 0.25 mg 11/26/18 21:00 12/08/18 20:36 Mirapex Tab* PO 0.25 mg BEDTIME INDU Administration Senna 2 tab 11/18/18 12:20 12/04/18 21:03 Senokot 8.6 Mg Tab* PO 2 tab BEDTIME PRN Administration CONSTIPATION Tamsulosin HCl 0.4 mg 11/26/18 21:00 12/08/18 20:33 Flomax Cap* PO 0.4 mg BEDTIME INDU Administration Tiotropium [place] 2 puff 11/24/18 09:00 12/08/18 08:58 Spiriva Respimat 2.5 Mcg INH 2 puff DAILY INDU Administration Vital Signs: Vital Signs Temp Pulse Resp BP Pulse Ox 97.5 F 71 18 137/52 95 12/08/18 16:43 12/08/18 16:43 12/08/18 20:44 12/08/18 16:43 12/08/18 18:49 Exam: GENERAL: alert and appropriate LUNGS: Clear to auscultation bilaterally HEART: Regular rate and rhythm ABDOMEN: Soft, + bowel sounds, non-tender, non-distended EXTREMITIES: Decreased tone LUE NEUROLOGIC: Left facial droop. RUE and RLE 5/5 motor throughout. Left motor bic 2, tri 2-3, wrist 0, finger flexion 3, hip flex 4, knee ext 4, DF 4. Sensation intact. Assessment/Plan: 1. 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 CT reviewed by Dr. Peck. Eliquis 2.5mg bid.May increase to 5 as BUN/Cr normal 2. Hypercholesterolemia: Lipitor 3. DVT Prophylaxis: eliquis 4. Dysphagia: Pureed solids/nectar thick liquids 5. Hypertension: Hydralazine PRN. Increased Cozaar to 50mg qday . 6. BPH: Proscar and flomax per home urologist 7. COPD: Albuterol and Spiriva for COPD 8. Advance Directives: Has MOLST. DNR 9. Paroxysmal Atrial fibrillation: Eliquis 10. Chronic kidney disease: BUN/Cr normal. 11. Restless leg syndrome: pramipexole and melatonin at night. 12. Rash on back: hydrocortisone qid prn. Monitor. 12/08/18 21:11
[2018-12-09] MEDS: Albuterol HFA INHALER* 8 gm MDI INH PRN ×2 (06:32→14:57)
[2018-12-09] MEDS: SPIRIVA Respimat* (tiotropium) 2.5 mcg/inh Inhaler INH SCH (07:32)
[2018-12-09] MEDS: Hydrocortisone 1% CREAM* 30 GM TUBE TOPICAL SCH ×4 (08:42→21:21)
[2018-12-09] MEDS: Finasteride TAB* 5 MG PO SCH (09:14)
[2018-12-09] MEDS: Folic Acid TAB* 1 MG PO SCH (09:14)
[2018-12-09] MEDS: Apixaban* 2.5 MG TAB PO SCH ×2 (09:14→21:22)
[2018-12-09] MEDS: Docusate CAP* 100 MG PO SCH ×2 (09:14→21:22)
[2018-12-09] MEDS: Losartan TAB* 25 MG PO SCH (09:14)
[2018-12-09] MEDS: Gabapentin CAP(*) 100 MG PO SCH ×2 (09:14→21:21)
[2018-12-09] MEDS: Pantoprazole TAB * 40 MG TAB PO SCH (09:15)
[2018-12-09] MEDS: Atorvastatin* 10 MG TAB PO SCH (17:51)
--- NOTE | 2018-12-09 18:05 | PN ---
Progress Note Date of Service: 12/09/18 Note: CHAPINCITO MORALES SR was visited. Therapy notes read and reviewed. He has no complaints. Doing okay overall. I will need to speak with his son next week Current Medications: Active Medications Generic Name Dose Route Start Last Admin Trade Name Freq PRN Reason Stop Dose Admin Acetaminophen 650 mg 11/18/18 12:20 12/07/18 10:51 Tylenol Tab* PO 650 mg Q6H PRN Administration MILD PAIN or TEMP > 100.4 Albuterol 2 puff 11/21/18 13:52 12/09/18 14:57 Ventolin Hfa Inhaler* INH 2 puff Q6H PRN Administration SOB/WHEEZING Apixaban 2.5 mg 11/28/18 09:00 12/09/18 09:14 Eliquis* PO 2.5 mg BID INDU Administration Atorvastatin Calcium 10 mg 11/19/18 17:00 12/09/18 17:51 Lipitor* PO 10 mg 1700 INDU Administration Bisacodyl 10 mg 11/18/18 12:20 Dulcolax Supp* [place] DAILY PRN CONSTIPATION Clonazepam 0.5 mg 11/23/18 17:44 12/08/18 20:44 Klonopin Tab(*) PO 0.5 mg BEDTIME PRN Administration ANXIETY Docusate Sodium 100 mg 11/18/18 21:00 12/09/18 09:14 Colace Cap* PO 100 mg BID INDU Administration Finasteride 5 mg 11/19/18 09:00 12/09/18 09:14 Proscar Tab* PO 5 mg DAILY INDU Administration Folic Acid 1 mg 11/19/18 09:00 12/09/18 09:14 Folvite Tab* PO 1 mg DAILY INDU Administration Gabapentin 100 mg 12/02/18 21:00 12/09/18 09:14 Neurontin Cap(*) PO 100 mg BID INDU Administration Hydralazine HCl 10 mg 11/20/18 10:51 11/20/18 23:09 Apresoline Tab* PO 10 mg Q8H PRN Administration Systolic Bp Greater Than: 180 Hydrocortisone 1 applic 11/29/18 09:00 12/09/18 14:57 Hytone Cream 1%* TOPICAL 1 applic QID INDU Administration Losartan Potassium 50 mg 11/28/18 09:00 12/09/18 09:14 Cozaar Tab* PO 50 mg DAILY INDU Administration Magnesium Hydroxide 30 ml 11/18/18 12:20 Milk Of Magnesia Liq* PO Q6H PRN CONSTIPATION Melatonin 3 mg 11/26/18 21:00 12/08/18 20:33 Melatonin PO 3 mg BEDTIME INDU Administration Pantoprazole Sodium 40 mg 11/19/18 09:00 12/09/18 09:15 Protonix Tab* PO 40 mg DAILY INDU Administration Pramipexole Dihydrochloride 0.25 mg 11/26/18 21:00 12/08/18 20:36 Mirapex Tab* PO 0.25 mg BEDTIME INDU Administration Senna 2 tab 11/18/18 12:20 12/04/18 21:03 Senokot 8.6 Mg Tab* PO 2 tab BEDTIME PRN Administration CONSTIPATION Tamsulosin HCl 0.4 mg 11/26/18 21:00 12/08/18 20:33 Flomax Cap* PO 0.4 mg BEDTIME INDU Administration Tiotropium [place] 2 puff 11/24/18 09:00 12/09/18 07:32 Spiriva Respimat 2.5 Mcg INH 2 puff DAILY INDU Administration Vital Signs: Vital Signs Temp Pulse Resp BP Pulse Ox 98.4 F 70 16 130/64 97 12/09/18 16:00 12/09/18 16:00 12/09/18 16:00 12/09/18 16:00 12/09/18 16:00 Exam: GENERAL: alert and appropriate LUNGS: Clear to auscultation bilaterally HEART: Regular rate and rhythm ABDOMEN: Soft, + bowel sounds, non-tender, non-distended EXTREMITIES: Decreased tone LUE NEUROLOGIC: Left facial droop. RUE and RLE 5/5 motor throughout. Left motor bic 2, tri 2-3, wrist 0, finger flexion 3, hip flex 4, knee ext 4, DF 4. Sensation intact. Assessment/Plan: 1. 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 CT reviewed by Dr. Peck. Eliquis 2.5mg bid.May increase to 5 as BUN/Cr normal 2. Hypercholesterolemia: Lipitor 3. DVT Prophylaxis: eliquis 4. Dysphagia: Pureed solids/nectar thick liquids 5. Hypertension: Hydralazine PRN. Cozaar 50mg qday . 6. BPH: Proscar and flomax per home urologist 7. COPD: Albuterol and Spiriva for COPD 8. Advance Directives: Has MOLST. DNR 9. Paroxysmal Atrial fibrillation: Eliquis 10. Chronic kidney disease: BUN/Cr normal. 11. Restless leg syndrome: pramipexole and melatonin at night. 12. Rash on back: hydrocortisone qid prn. Monitor. 12/09/18 18:05
[2018-12-09] MEDS: Pramipexole TAB* 0.125 MG PO SCH (21:21)
[2018-12-09] MEDS: Melatonin 3 MG TAB PO SCH (21:22)
[2018-12-09] MEDS: Tamsulosin CAP* 0.4 MG PO SCH (21:22)
[2018-12-10 06:09] LABS: ABS Basophils 0.1 10^3/ul (0-0.2); ABS Eosinophils 0.3 10^3/ul (0-0.6); ABS Lymphocytes 1.3 10^3/ul (1.0-4.8); ABS Monocytes 0.6 10^3/ul (0-0.8); ABS Neutrophils 5.1 10^3/ul (1.5-7.7); Eosinophil % 3.8 %; Hematocrit 42 % (42-52); Hemoglobin 14.3 g/dL (14.0-18.0); Lymphocyte % 18.1 %; Mean Corpuscular HGB Conc 34 g/dL (31-36); Mean Corpuscular Hemoglobin 33 pg (27-31); Mean Corpuscular Volume 96 fL (80-94); Mean Platelet Volume 8.9 fL (7.4-10.4); Nucleated Red Blood Cells % 0.2; Platelet Count 220 10^3/uL (150-450); Red Blood Count 4.31 10^6 /uL (4.18-5.48); Red Cell Distribution Width 13 % (10-15); White Blood Count 7.4 10^3/uL (3.5-10.8)
[2018-12-10 06:31] LABS: Albumin 3.4 g/dL (3.2-5.2); BUN/Creatinine Ratio 15.6 (8-20); Calcium 9.6 mg/dL (8.6-10.3); EGFR African American 78.4 (>60); EGFR Non-African American 64.8 (>60); Globulin 3.4 g/dL (2-4); Potassium 4.4 mmol/L (3.5-5.0); Total Bilirubin 0.6 mg/dL (0.2-1.0); Total Protein 6.8 g/dL (6.4-8.9)
[2018-12-10] MEDS: SPIRIVA Respimat* (tiotropium) 2.5 mcg/inh Inhaler INH SCH (07:32)
[2018-12-10] MEDS: Docusate CAP* 100 MG PO SCH ×2 (09:58→20:59)
[2018-12-10] MEDS: Apixaban* 2.5 MG TAB PO SCH (09:58)
[2018-12-10] MEDS: Finasteride TAB* 5 MG PO SCH (09:58)
[2018-12-10] MEDS: Gabapentin CAP(*) 100 MG PO SCH ×2 (09:58→20:59)
[2018-12-10] MEDS: Pantoprazole TAB * 40 MG TAB PO SCH (09:59)
[2018-12-10] MEDS: Losartan TAB* 25 MG PO SCH (09:59)
[2018-12-10] MEDS: Hydrocortisone 1% CREAM* 30 GM TUBE TOPICAL SCH ×4 (09:59→21:00)
[2018-12-10] MEDS: Folic Acid TAB* 1 MG PO SCH (09:59)
--- NOTE | 2018-12-10 11:51 | PN ---
Progress Note Date of Service: 12/10/18 Note: CHAPINCITO MORALES was visited. Nursing and therapy notes read and reviewed. No chest pain, shortness of breath or abdominal pain. No new issues overnight. Current Medications: Active Medications Generic Name Dose Route Start Last Admin Trade Name Freq PRN Reason Stop Dose Admin Acetaminophen 650 mg 11/18/18 12:20 12/07/18 10:51 Tylenol Tab* PO 650 mg Q6H PRN Administration MILD PAIN or TEMP > 100.4 Albuterol 2 puff 11/21/18 13:52 12/09/18 14:57 Ventolin Hfa Inhaler* INH 2 puff Q6H PRN Administration SOB/WHEEZING Apixaban 2.5 mg 11/28/18 09:00 12/10/18 09:58 Eliquis* PO 2.5 mg BID INDU Administration Atorvastatin Calcium 10 mg 11/19/18 17:00 12/09/18 17:51 Lipitor* PO 10 mg 1700 INDU Administration Bisacodyl 10 mg 11/18/18 12:20 Dulcolax Supp* [place] DAILY PRN CONSTIPATION Clonazepam 0.5 mg 11/23/18 17:44 12/08/18 20:44 Klonopin Tab(*) PO 0.5 mg BEDTIME PRN Administration ANXIETY Docusate Sodium 100 mg 11/18/18 21:00 12/10/18 09:58 Colace Cap* PO 100 mg BID INDU Administration Finasteride 5 mg 11/19/18 09:00 12/10/18 09:58 Proscar Tab* PO 5 mg DAILY INDU Administration Folic Acid 1 mg 11/19/18 09:00 12/10/18 09:59 Folvite Tab* PO 1 mg DAILY INDU Administration Gabapentin 100 mg 12/02/18 21:00 12/10/18 09:58 Neurontin Cap(*) PO 100 mg BID INDU Administration Hydralazine HCl 10 mg 11/20/18 10:51 11/20/18 23:09 Apresoline Tab* PO 10 mg Q8H PRN Administration Systolic Bp Greater Than: 180 Hydrocortisone 1 applic 11/29/18 09:00 12/10/18 09:59 Hytone Cream 1%* TOPICAL 1 applic QID INDU Administration Losartan Potassium 50 mg 11/28/18 09:00 12/10/18 09:59 Cozaar Tab* PO 50 mg DAILY INDU Administration Magnesium Hydroxide 30 ml 11/18/18 12:20 Milk Of Magnesia Liq* PO Q6H PRN CONSTIPATION Melatonin 3 mg 11/26/18 21:00 12/09/18 21:22 Melatonin PO 3 mg BEDTIME INDU Administration Pantoprazole Sodium 40 mg 11/19/18 09:00 12/10/18 09:59 Protonix Tab* PO 40 mg DAILY INDU Administration Pramipexole Dihydrochloride 0.25 mg 11/26/18 21:00 12/09/18 21:21 Mirapex Tab* PO 0.25 mg BEDTIME INDU Administration Senna 2 tab 11/18/18 12:20 12/04/18 21:03 Senokot 8.6 Mg Tab* PO 2 tab BEDTIME PRN Administration CONSTIPATION Tamsulosin HCl 0.4 mg 11/26/18 21:00 12/09/18 21:22 Flomax Cap* PO 0.4 mg BEDTIME INDU Administration Tiotropium [place] 2 puff 11/24/18 09:00 12/10/18 07:32 Spiriva Respimat 2.5 Mcg INH 2 puff DAILY INDU Administration Vital Signs: Vital Signs Temp Pulse Resp BP Pulse Ox 97.7 F 70 16 162/62 97 12/10/18 04:58 12/10/18 07:33 12/10/18 10:00 12/10/18 06:17 12/10/18 04:58 Lab Results: Laboratory Results - last 24 hr 12/10/18 12/10/18 05:29 05:29 WBC 7.4 RBC 4.31 Hgb 14.3 Hct 42 MCV 96 H MCH 33 H MCHC 34 RDW 13 Plt Count 220 MPV 8.9 Neut % (Auto) 69.0 Lymph % (Auto) 18.1 [place] % (Auto) 8.1 Eos % (Auto) 3.8 Baso % (Auto) 1.0 Absolute Neuts (auto) 5.1 Absolute Lymphs (auto) 1.3 Absolute Monos (auto) 0.6 Absolute Eos (auto) 0.3 Absolute Basos (auto) 0.1 Absolute Nucleated RBC 0.0 Nucleated RBC % 0.2 Sodium 134 L Potassium 4.4 Chloride 97 L Carbon Dioxide 31 Anion Gap 6 BUN 17 Creatinine 1.09 Est GFR ( Amer) 78.4 Est GFR (Non-Af Amer) 64.8 BUN/Creatinine Ratio 15.6 Glucose 160 H Calcium 9.6 Total Bilirubin 0.60 AST 18 ALT 20 Alkaline Phosphatase 78 Total Protein 6.8 Albumin 3.4 Globulin 3.4 Albumin/Globulin Ratio 1.0 Exam: GENERAL: alert and appropriate LUNGS: Clear to auscultation bilaterally HEART: Regular rate and rhythm ABDOMEN: Soft, + bowel sounds, non-tender, non-distended EXTREMITIES: Decreased tone LUE NEUROLOGIC: Left facial droop. RUE and RLE 5/5 motor throughout. Left motor bic 2, tri 2-3, wrist 0, finger flexion 3, hip flex 4, knee ext 4, DF 4. Sensation intact. Assessment/Plan: 1. 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 CTH reviewed by Dr. Peck. Increase Eliquis to 5mg bid since BUN/Cr normal 2. Hypercholesterolemia: Lipitor 3. DVT Prophylaxis: eliquis 4. Dysphagia: Pureed solids/nectar thick liquids 5. Hypertension: High this morning before meds. Follow VS and consider increase Cozaar. Hydralazine PRN. Cozaar 50mg qday . 6. BPH: Proscar and flomax per home urologist 7. COPD: Albuterol and Spiriva for COPD 8. Advance Directives: Has MOLST. DNR 9. Paroxysmal Atrial fibrillation: Eliquis 10. Chronic kidney disease: BUN/Cr normal. 11. Restless leg syndrome: pramipexole and melatonin at night. 12. Rash on back: hydrocortisone qid prn. Monitor. 12/10/18 11:51
[2018-12-10] MEDS: Atorvastatin* 10 MG TAB PO SCH (16:45)
[2018-12-10] MEDS: Pramipexole TAB* 0.125 MG PO SCH (20:58)
[2018-12-10] MEDS: Apixaban* 5 MG TAB PO SCH (20:59)
[2018-12-10] MEDS: Melatonin 3 MG TAB PO SCH (20:59)
[2018-12-10] MEDS: Tamsulosin CAP* 0.4 MG PO SCH (21:00)
[2018-12-10] MEDS: Albuterol HFA INHALER* 8 gm MDI INH PRN (22:57)
[2018-12-11] MEDS: SPIRIVA Respimat* (tiotropium) 2.5 mcg/inh Inhaler INH SCH (07:52)
[2018-12-11] MEDS: Losartan TAB* 25 MG PO SCH (10:45)
[2018-12-11] MEDS: Docusate CAP* 100 MG PO SCH ×2 (10:46→21:18)
[2018-12-11] MEDS: Apixaban* 5 MG TAB PO SCH ×2 (10:46→21:19)
[2018-12-11] MEDS: Finasteride TAB* 5 MG PO SCH (10:46)
[2018-12-11] MEDS: Pantoprazole TAB * 40 MG TAB PO SCH (10:47)
[2018-12-11] MEDS: Folic Acid TAB* 1 MG PO SCH (10:47)
[2018-12-11] MEDS: Gabapentin CAP(*) 100 MG PO SCH ×2 (10:48→21:19)
[2018-12-11] MEDS: Hydrocortisone 1% CREAM* 30 GM TUBE TOPICAL SCH ×4 (10:49→21:24)
--- NOTE | 2018-12-11 12:01 | PN ---
Progress Note Date of Service: 12/11/18 Note: CHAPINCITO MORALES was visited. Nursing and therapy notes read and reviewed. No chest pain, shortness of breath or abdominal pain. Current Medications: Active Medications Generic Name Dose Route Start Last Admin Trade Name Freq PRN Reason Stop Dose Admin Acetaminophen 650 mg 11/18/18 12:20 12/07/18 10:51 Tylenol Tab* PO 650 mg Q6H PRN Administration MILD PAIN or TEMP > 100.4 Albuterol 2 puff 11/21/18 13:52 12/10/18 22:57 Ventolin Hfa Inhaler* INH 2 puff Q6H PRN Administration SOB/WHEEZING Apixaban 5 mg 12/10/18 21:00 12/11/18 10:46 Eliquis* PO 5 mg BID INDU Administration Atorvastatin Calcium 10 mg 11/19/18 17:00 12/10/18 16:45 Lipitor* PO 10 mg 1700 INDU Administration Bisacodyl 10 mg 11/18/18 12:20 Dulcolax Supp* [place] DAILY PRN CONSTIPATION Clonazepam 0.5 mg 11/23/18 17:44 12/08/18 20:44 Klonopin Tab(*) PO 0.5 mg BEDTIME PRN Administration ANXIETY Docusate Sodium 100 mg 11/18/18 21:00 12/11/18 10:46 Colace Cap* PO 100 mg BID INDU Administration Finasteride 5 mg 11/19/18 09:00 12/11/18 10:46 Proscar Tab* PO 5 mg DAILY INDU Administration Folic Acid 1 mg 11/19/18 09:00 12/11/18 10:47 Folvite Tab* PO 1 mg DAILY INDU Administration Gabapentin 100 mg 12/02/18 21:00 12/11/18 10:48 Neurontin Cap(*) PO 100 mg BID INDU Administration Hydralazine HCl 10 mg 11/20/18 10:51 11/20/18 23:09 Apresoline Tab* PO 10 mg Q8H PRN Administration Systolic Bp Greater Than: 180 Hydrocortisone 1 applic 11/29/18 09:00 12/11/18 10:49 Hytone Cream 1%* TOPICAL 1 applic QID INDU Administration Losartan Potassium 50 mg 11/28/18 09:00 12/11/18 10:45 Cozaar Tab* PO 50 mg DAILY INDU Administration Magnesium Hydroxide 30 ml 11/18/18 12:20 Milk Of Magnisabel Liq* PO Q6H PRN CONSTIPATION Melatonin 3 mg 11/26/18 21:00 12/10/18 20:59 Melatonin PO 3 mg BEDTIME INDU Administration Pantoprazole Sodium 40 mg 11/19/18 09:00 12/11/18 10:47 Protonix Tab* PO 40 mg DAILY INDU Administration Pramipexole Dihydrochloride 0.25 mg 11/26/18 21:00 12/10/18 20:58 Mirapex Tab* PO 0.25 mg BEDTIME INDU Administration Senna 2 tab 11/18/18 12:20 12/04/18 21:03 Senokot 8.6 Mg Tab* PO 2 tab BEDTIME PRN Administration CONSTIPATION Tamsulosin HCl 0.4 mg 11/26/18 21:00 12/10/18 21:00 Flomax Cap* PO 0.4 mg BEDTIME INDU Administration Tiotropium [place] 2 puff 11/24/18 09:00 12/11/18 07:52 Spiriva Respimat 2.5 Mcg INH 2 puff DAILY INDU Administration Vital Signs: Vital Signs Temp Pulse Resp BP Pulse Ox 97.9 F 54 22 144/44 97 12/11/18 05:16 12/11/18 05:16 12/11/18 10:48 12/11/18 05:16 12/11/18 05:16 Exam: GENERAL: alert and appropriate LUNGS: Clear to auscultation bilaterally HEART: Regular rate and rhythm ABDOMEN: Soft, + bowel sounds, non-tender, non-distended EXTREMITIES: Decreased tone LUE NEUROLOGIC: Left facial droop. RUE and RLE 5/5 motor throughout. Left motor bic 2, tri 2-3, wrist 1 inconsistently, finger flexion 3, hip flex 4, knee ext 4, DF 4. Sensation intact. Assessment/Plan: 1. 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 CT reviewed by Dr. Peck. Increase Eliquis to 5mg bid since BUN/Cr normal 2. Hypercholesterolemia: Lipitor 3. DVT Prophylaxis: eliquis 4. Dysphagia: Pureed solids/nectar thick liquids 5. Hypertension: Follow VS. Hydralazine PRN. Cozaar 50mg qday . 6. BPH: Proscar and flomax per home urologist 7. COPD: Albuterol and Spiriva for COPD 8. Advance Directives: Has MOLST. DNR 9. Paroxysmal Atrial fibrillation: Eliquis 10. Chronic kidney disease: BUN/Cr normal. 11. Restless leg syndrome: pramipexole and melatonin at night. 12. Rash on back: hydrocortisone qid prn. Monitor. 12/11/18 12:00
[2018-12-11] MEDS: Atorvastatin* 10 MG TAB PO SCH (17:21)
[2018-12-11] MEDS: Pramipexole TAB* 0.125 MG PO SCH (21:17)
[2018-12-11] MEDS: Tamsulosin CAP* 0.4 MG PO SCH (21:18)
[2018-12-11] MEDS: Melatonin 3 MG TAB PO SCH (21:18)
[2018-12-11] MEDS: clonazePAM TAB(*) 0.5 MG PO PRN (22:18)
[2018-12-12] MEDS: Albuterol HFA INHALER* 8 gm MDI INH PRN ×2 (00:15→22:24)
[2018-12-12] MEDS: SPIRIVA Respimat* (tiotropium) 2.5 mcg/inh Inhaler INH SCH (07:26)
--- NOTE | 2018-12-12 10:59 | PN ---
Progress Note Date of Service: 12/12/18 Note: CHAPINCITO MORALES was visited. Nursing notes read and reviewed. No new issues overnight. No chest pain, shortness of breath or abdominal pain. Current Medications: Active Medications Generic Name Dose Route Start Last Admin Trade Name Freq PRN Reason Stop Dose Admin Acetaminophen 650 mg 11/18/18 12:20 12/07/18 10:51 Tylenol Tab* PO 650 mg Q6H PRN Administration MILD PAIN or TEMP > 100.4 Albuterol 2 puff 11/21/18 13:52 12/12/18 00:15 Ventolin Hfa Inhaler* INH 2 puff Q6H PRN Administration SOB/WHEEZING Apixaban 5 mg 12/10/18 21:00 12/11/18 21:19 Eliquis* PO 5 mg BID INDU Administration Atorvastatin Calcium 10 mg 11/19/18 17:00 12/11/18 17:21 Lipitor* PO 10 mg 1700 INDU Administration Bisacodyl 10 mg 11/18/18 12:20 Dulcolax Supp* [place] DAILY PRN CONSTIPATION Clonazepam 0.5 mg 11/23/18 17:44 12/11/18 22:18 Klonopin Tab(*) PO 0.5 mg BEDTIME PRN Administration ANXIETY Docusate Sodium 100 mg 11/18/18 21:00 12/11/18 21:18 Colace Cap* PO 100 mg BID INDU Administration Finasteride 5 mg 11/19/18 09:00 12/11/18 10:46 Proscar Tab* PO 5 mg DAILY INDU Administration Folic Acid 1 mg 11/19/18 09:00 12/11/18 10:47 Folvite Tab* PO 1 mg DAILY INDU Administration Gabapentin 100 mg 12/02/18 21:00 12/11/18 21:19 Neurontin Cap(*) PO 100 mg BID INDU Administration Hydralazine HCl 10 mg 11/20/18 10:51 11/20/18 23:09 Apresoline Tab* PO 10 mg Q8H PRN Administration Systolic Bp Greater Than: 180 Hydrocortisone 1 applic 11/29/18 09:00 12/11/18 21:24 Hytone Cream 1%* TOPICAL 1 applic QID INDU Administration Losartan Potassium 50 mg 11/28/18 09:00 12/11/18 10:45 Cozaar Tab* PO 50 mg DAILY INDU Administration Magnesium Hydroxide 30 ml 11/18/18 12:20 Milk Of Magnesia Liq* PO Q6H PRN CONSTIPATION Melatonin 3 mg 11/26/18 21:00 12/11/18 21:18 Melatonin PO 3 mg BEDTIME INDU Administration Pantoprazole Sodium 40 mg 11/19/18 09:00 12/11/18 10:47 Protonix Tab* PO 40 mg DAILY INDU Administration Pramipexole Dihydrochloride 0.25 mg 11/26/18 21:00 12/11/18 21:17 Mirapex Tab* PO 0.25 mg BEDTIME INDU Administration Senna 2 tab 11/18/18 12:20 12/04/18 21:03 Senokot 8.6 Mg Tab* PO 2 tab BEDTIME PRN Administration CONSTIPATION Tamsulosin HCl 0.4 mg 11/26/18 21:00 12/11/18 21:18 Flomax Cap* PO 0.4 mg BEDTIME INDU Administration Tiotropium [place] 2 puff 11/24/18 09:00 12/12/18 07:26 Spiriva Respimat 2.5 Mcg INH 2 puff DAILY INDU Administration Vital Signs: Vital Signs Temp Pulse Resp BP Pulse Ox 97.6 F 60 18 146/54 92 12/12/18 04:59 12/12/18 07:27 12/12/18 07:27 12/12/18 04:59 12/12/18 07:27 Exam: GENERAL: alert and appropriate LUNGS: Clear to auscultation bilaterally HEART: Regular rate and rhythm ABDOMEN: Soft, + bowel sounds, non-tender, non-distended EXTREMITIES: Decreased tone LUE NEUROLOGIC: Left facial droop. RUE and RLE 5/5 motor throughout. Left motor bic 2, tri 2-3, wrist 1 inconsistently, finger flexion 3, hip flex 4, knee ext 4, DF 4. Sensation intact. SKIN: rash on back cleared Assessment/Plan: 1. 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 CTH reviewed by Dr. Peck. Eliquis to 5mg bid since BUN/Cr normal 2. Hypercholesterolemia: Lipitor 3. DVT Prophylaxis: eliquis 4. Dysphagia: Upgraded to mechanical ground solids 12/11. nectar thick liquids 5. Hypertension: Follow VS. Hydralazine PRN. Cozaar 50mg qday . 6. BPH: Proscar and flomax per home urologist 7. COPD: Albuterol and Spiriva for COPD 8. Advance Directives: Has MOLST. DNR 9. Paroxysmal Atrial fibrillation: Eliquis 10. Chronic kidney disease: BUN/Cr normal. 11. Restless leg syndrome: pramipexole and melatonin at night. 12. Rash on back: hydrocortisone qid prn. Monitor. 12/12/18 10:59
[2018-12-12] MEDS: Apixaban* 5 MG TAB PO SCH ×2 (11:45→22:27)
[2018-12-12] MEDS: Finasteride TAB* 5 MG PO SCH (11:45)
[2018-12-12] MEDS: Folic Acid TAB* 1 MG PO SCH (11:45)
[2018-12-12] MEDS: Docusate CAP* 100 MG PO SCH ×2 (11:45→22:26)
[2018-12-12] MEDS: Pantoprazole TAB * 40 MG TAB PO SCH (11:46)
[2018-12-12] MEDS: Gabapentin CAP(*) 100 MG PO SCH ×2 (11:46→22:26)
[2018-12-12] MEDS: Losartan TAB* 25 MG PO SCH (11:46)
[2018-12-12] MEDS: Hydrocortisone 1% CREAM* 30 GM TUBE TOPICAL SCH ×4 (11:46→22:28)
[2018-12-12] MEDS: Atorvastatin* 10 MG TAB PO SCH (17:49)
[2018-12-12] MEDS: Melatonin 3 MG TAB PO SCH (22:27)
[2018-12-12] MEDS: Tamsulosin CAP* 0.4 MG PO SCH (22:27)
[2018-12-12] MEDS: Pramipexole TAB* 0.125 MG PO SCH (23:21)
[2018-12-12] MEDS: clonazePAM TAB(*) 0.5 MG PO PRN (23:21)
[2018-12-13] MEDS: Folic Acid TAB* 1 MG PO SCH (08:29)
[2018-12-13] MEDS: Apixaban* 5 MG TAB PO SCH ×2 (08:29→20:44)
[2018-12-13] MEDS: Losartan TAB* 25 MG PO SCH (08:29)
[2018-12-13] MEDS: Docusate CAP* 100 MG PO SCH ×2 (08:29→20:44)
[2018-12-13] MEDS: Finasteride TAB* 5 MG PO SCH (08:29)
[2018-12-13] MEDS: Hydrocortisone 1% CREAM* 30 GM TUBE TOPICAL SCH ×5 (08:29→20:49)
[2018-12-13] MEDS: Gabapentin CAP(*) 100 MG PO SCH ×2 (08:30→20:44)
[2018-12-13] MEDS: Pantoprazole TAB * 40 MG TAB PO SCH (08:30)
[2018-12-13] MEDS: SPIRIVA Respimat* (tiotropium) 2.5 mcg/inh Inhaler INH SCH (08:56)
[2018-12-13] MEDS: Acetaminophen TAB* 325 MG PO PRN (16:15)
[2018-12-13] MEDS: Atorvastatin* 10 MG TAB PO SCH (17:10)
[2018-12-13] MEDS: Albuterol HFA INHALER* 8 gm MDI INH PRN ×2 (17:11→23:20)
[2018-12-13] MEDS: Tamsulosin CAP* 0.4 MG PO SCH (20:44)
[2018-12-13] MEDS: Pramipexole TAB* 0.125 MG PO SCH (20:44)
[2018-12-13] MEDS: Melatonin 3 MG TAB PO SCH (20:44)
--- NOTE | 2018-12-13 20:46 | PN ---
Progress Note Date of Service: 12/13/18 Note: CHAPINCITO MORALES SR was visited. Therapy notes read and reviewed. There was a meeting with the SW today about possible d/c options. He will likely go to [facility], [place] Current Medications: Active Medications Generic Name Dose Route Start Last Admin Trade Name Freq PRN Reason Stop Dose Admin Acetaminophen 650 mg 11/18/18 12:20 12/13/18 16:15 Tylenol Tab* PO 650 mg Q6H PRN Administration MILD PAIN or TEMP > 100.4 Albuterol 2 puff 11/21/18 13:52 12/13/18 17:11 Ventolin Hfa Inhaler* INH 2 puff Q6H PRN Administration SOB/WHEEZING Apixaban 5 mg 12/10/18 21:00 12/13/18 08:29 Eliquis* PO 5 mg BID INDU Administration Atorvastatin Calcium 10 mg 11/19/18 17:00 12/13/18 17:10 Lipitor* PO 10 mg 1700 INDU Administration Bisacodyl 10 mg 11/18/18 12:20 Dulcolax Supp* [place] DAILY PRN CONSTIPATION Clonazepam 0.5 mg 11/23/18 17:44 12/12/18 23:21 Klonopin Tab(*) PO 0.5 mg BEDTIME PRN Administration ANXIETY Docusate Sodium 100 mg 11/18/18 21:00 12/13/18 08:29 Colace Cap* PO 100 mg BID INDU Administration Finasteride 5 mg 11/19/18 09:00 12/13/18 08:29 Proscar Tab* PO 5 mg DAILY INDU Administration Folic Acid 1 mg 11/19/18 09:00 12/13/18 08:29 Folvite Tab* PO 1 mg DAILY INDU Administration Gabapentin 100 mg 12/02/18 21:00 12/13/18 08:30 Neurontin Cap(*) PO 100 mg BID INDU Administration Hydralazine HCl 10 mg 11/20/18 10:51 11/20/18 23:09 Apresoline Tab* PO 10 mg Q8H PRN Administration Systolic Bp Greater Than: 180 Hydrocortisone 1 applic 11/29/18 09:00 12/13/18 19:00 Hytone Cream 1%* TOPICAL 1 applic QID INDU Administration Losartan Potassium 50 mg 11/28/18 09:00 12/13/18 08:29 Cozaar Tab* PO 50 mg DAILY INDU Administration Magnesium Hydroxide 30 ml 11/18/18 12:20 Milk Of Magnesia Liq* PO Q6H PRN CONSTIPATION Melatonin 3 mg 11/26/18 21:00 12/12/18 22:27 Melatonin PO 3 mg BEDTIME INDU Administration Pantoprazole Sodium 40 mg 11/19/18 09:00 12/13/18 08:30 Protonix Tab* PO 40 mg DAILY INDU Administration Pramipexole Dihydrochloride 0.25 mg 11/26/18 21:00 12/12/18 23:21 Mirapex Tab* PO 0.25 mg BEDTIME INDU Administration Senna 2 tab 11/18/18 12:20 12/04/18 21:03 Senokot 8.6 Mg Tab* PO 2 tab BEDTIME PRN Administration CONSTIPATION Tamsulosin HCl 0.4 mg 11/26/18 21:00 12/12/18 22:27 Flomax Cap* PO 0.4 mg BEDTIME INDU Administration Tiotropium [place] 2 puff 11/24/18 09:00 12/13/18 08:56 Spiriva Respimat 2.5 Mcg INH 2 puff DAILY INDU Administration Vital Signs: Vital Signs Temp Pulse Resp BP Pulse Ox 97.6 F 70 14 154/58 96 12/13/18 17:04 12/13/18 17:04 12/13/18 12:46 12/13/18 17:04 12/13/18 17:04 Exam: GENERAL: alert and appropriate LUNGS: Clear to auscultation bilaterally HEART: Regular rate and rhythm ABDOMEN: Soft, + bowel sounds, non-tender, non-distended EXTREMITIES: Decreased tone LUE NEUROLOGIC: Left facial droop. RUE and RLE 5/5 motor throughout.LUE: some proximal, minimal distal movements Assessment/Plan: 1. 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 CTH reviewed by Dr. Peck. Eliquis to 5mg bid since BUN/Cr normal 2. Hypercholesterolemia: Lipitor 3. DVT Prophylaxis: eliquis 4. Dysphagia: Upgraded to mechanical ground solids 12/11. nectar thick liquids 5. Hypertension: Follow VS. Hydralazine PRN. Cozaar 50mg qday . 6. BPH: Proscar and flomax per home urologist 7. COPD: Albuterol and Spiriva for COPD 8. Advance Directives: Has MOLST. DNR 9. Paroxysmal Atrial fibrillation: Eliquis 10. Chronic kidney disease: BUN/Cr normal. 11. Restless leg syndrome: pramipexole and melatonin at night. 12. Rash on back: faded 12/13/18 20:47
[2018-12-14] MEDS: SPIRIVA Respimat* (tiotropium) 2.5 mcg/inh Inhaler INH SCH (08:03)
[2018-12-14] MEDS: Folic Acid TAB* 1 MG PO SCH (09:58)
[2018-12-14] MEDS: Hydrocortisone 1% CREAM* 30 GM TUBE TOPICAL SCH ×5 (09:58→20:58)
[2018-12-14] MEDS: Finasteride TAB* 5 MG PO SCH (09:58)
[2018-12-14] MEDS: Gabapentin CAP(*) 100 MG PO SCH ×2 (09:58→20:56)
[2018-12-14] MEDS: Apixaban* 5 MG TAB PO SCH ×2 (09:58→20:56)
[2018-12-14] MEDS: Docusate CAP* 100 MG PO SCH ×2 (09:58→20:57)
[2018-12-14] MEDS: Losartan TAB* 25 MG PO SCH (09:58)
[2018-12-14] MEDS: Pantoprazole TAB * 40 MG TAB PO SCH (09:58)
--- NOTE | 2018-12-14 12:41 | PMRUTEAM ---
PMRU: Team Meeting Current Status: Nursing: Current Status Skin Deviations [L dorsal ft, Abrasion toes] Skin Deviations [Back] Rash Skin Deviations [Right Upper Abrasion Arm] Skin Deviations [Left Elbow] Abrasion Skin Deviations [Left Abrasion Posterior Neck] Skin Deviations [Left Temporal Abrasion ] Skin Deviations [Right Foot] Abrasion Skin Deviations [Left Heel] Abrasion Skin Deviations [Right Elbow] Abrasion Skin Deviations [Left Lateral Abrasion Knee] Skin Deviations [Left Chest] Abrasion Skin Deviations [Left Upper Abrasion Arm] Skin Deviations [Left Shoulder Abrasion ] Skin Deviations [Left Cheek] Abrasion Skin Deviation Description [L healing dorsal ft, toes] Skin Deviation Description [ very light Back] Skin Deviation Description [ healing - no change Right Upper Arm] Skin Deviation Description [ healing Left Elbow] Skin Deviation Description [ healing - no change Left Posterior Neck] Skin Deviation Description [ healing - no change Left Temporal] Skin Deviation Description [ healing - no change Right Foot] Skin Deviation Description [ multipoduce boots in place Left Heel] Skin Deviation Description [ healing - no change Right Elbow] Skin Deviation Description [ healing - no change Left Lateral Knee] Skin Deviation Description [ pink in color, new skin Left Chest] Skin Deviation Description [ healing - no change Left Upper Arm] Skin Deviation Description [ healing - no change Left Shoulder] Skin Deviation Description [ healing Left Cheek] Bladder Current Status voids, incontinent Bowel Current Status last bm 12/14 Nutrition Current Status appetite good, tolerating nectar thick fluids, pureed food without difficulty Medication Current Status refusing all medications Physical Therapy: Current Status Bed Mobility Assistance Min Assist Transfer Mobility Assistance Min Assist,Mod Assist,2 or More Person Assist Transfer/Bed Mobility Railings,EZ Stand Recommended Devices Transfer Mobility Comment Min-mod SPT with PT, Ax2 with nsg staff Ambulation Assistance Unable Ambulation Assistive Devices Large Base Quad Cane,Platform Walker,Balbir Walker Stairs Assistance Not Tested Stairs Recommended Devices Quad Cane Number of Stairs 3 Manual Wheelchair Control/ Right UE/Bilateral LE's Technique Wheelchair Propulsion Ability Standby Assistance,Minimum Assistance Wheelchair Distance (ft) 1x75 Objective Comments Pt presents with increased c/o fatigue resulting in increased inattention and impaired command following during PM session. Occupational Therapy: Current Status Upper Body Dressing Max Asst Lower Body Dressing Max Asst,2 Person Assist Bathing Mod Assist,2 Person Assist Bathing Progress s Toileting Total Assist,2 Person Assist Toilet Transfer Total Assist,2 Person Assist Toilet Transfer Progress EZ stand Shower Transfer Total Assist,2 Person Assist Shower Transfer Progress N/A Eating Supervision Eating Progress set-up Instrumental ADL [facility] ADL 02/20=70.42% Rec Therapy: Current Status Summary of Assessment and Recreation Therapy assessment complete and pt. is Clinical Impression aware of services. Pt. has been active in leisure visits with activities being provided to him for independent engagement. Treatment Goals Pt. will engage in leisure activities while on the unit. Treatment Plan Provide recreation therapy services and encourage involvement. Nutrition: Current Status Monitoring pt w/ability to upgrade textures from pureed to mech ground; continue nectar-thick liquids per GUN TESTER follow-up 12/10. He cont to eat 90-100% of meals. Chart reviewed: no noted GI s/sx; regular soft BMs q 1-2 days; last BM 12/11. Skin is intact; abrasions only (per nsg documentation). Labs 12/10: na 134, K 4.4, BG 160. Hyperglycemia likely transient, but will follow w/weekly labs. Suggest cont same diet; textures and consistencies per GUN TESTER recommendations. Speech: Current Status Assessment Pt had met short-term swallowing goal for ground/ soft solids, and goal for thin liquids is ongoing. Progressing. Goals: Physical Therapy: Initial Goals Bed Mobility Assistance Independent Transfer Mobility Assistance Independent Transfer/Bed Mobility Large Base Quad Cane Recommended Devices Ambulation Independent Ambulation Recommended Devices Large Base Quad Cane Ambulation Distance 150 Stairs Assistance Independent Stair Recommended Devices One Rail Number of Stairs 8 Physical Therapy: Updated Goals Transfer/Bed Mobility EZ Stand Recommended Devices Occupational Therapy: Initial Goals Goals to be Completed in (Days 4-6 weeks ) Upper Body Bathing Routine Modified Independent with Lower Body Bathing Routine Modified Independent with Upper Body Dressing Routine Modified Independent with Lower Body Dressing Routine Modified Independent with Toilet Hygeine and Clothing Modified Independent with Management Routine Toilet Transfer Routine Modified Independent with Tub Transfer Routine Modified Independent with Functional Transfers for ADL Modified Independent with Grooming Routine Modified Independent with Feeding Routine Modified Independent with Nursing: Goals Bladder Goal independent Bowel Goal independent Nutrition Goal 100% of all meals consumed Medication Goal reinforcement with medications Nutrition: Goals Intervention Goals 1) Pt will tolerate least-restrictive dietary textures w/o further difficulty swallowing 2) Adequate po intake to support lean body mass and hydration status 3) Maintain fluid/electrolyte balance w/ adequate po intake 4) Improve bowel regularity w/ adequate po intake and standing bowel meds w/o exac of constipation/ development of diarrhea Speech: Goals Speech Goal 1 Swallowing Speech Evaluation Status Goal Moderate 1 Goal 1 Comments Long-Term Goal: Patient will tolerate least restrictive diet consistencies w/ no stasis or clinical s/s aspiration Short Term Goals: 1) Pt will Independently use compensatory strategies to tolerate soft solid consistencies w/ no difficulty, minimal globus sensation and no clinical s/s aspiration, given Moderate cueing. Status; Met. 2) Pt will use compensatory strategies to tolerate 10/10 trials of thin liquid over two sessions, w/ no clinical s/s aspiration, given Moderate cueing. Status: Progressing as expected. Patient tolerated sips of water for [place] thick in 5/5 trials with no clinical s/s aspiration, I' ly Pt attempted supraglottic swallow (breath holding technique) and required additional instruction/demonstration. Pt tolerated 2/5 trials of thin liquids presented via spoon, I'ldy. Pt demonstrated improving technique for supraglottic swallow. Pt completed 8/8 Effortful swallows following instruction and demonstration. Speech Goal 2 Speech Speech Goal 2 Evaluation Mild Status Speech Goal 2 Comments Motor-speech Long-Term Goal: Pt will I'ly speak with 100% intelligibility Status: Progressing as expected Short-Term Goal 1: Pt will use compensatory strategies to increase speech intelligibility to 95% in spontaneous conversational speech, given minimal cueing. Status: Progressing as expected Given minimal to no cueing, patient produced vowels, multiple syllable words and phrases. Pt was wearing lower dentures only, observed to be 95 -100% intelligible. Speech Goal 3 Problem Solving Speech Goal 3 Evaluation Moderate Status Speech Goal 3 Comments Problem Solving Goals: Long-Term Goal: Pt will use compensatory strategies to solve moderately complex routine problems, for reading, time and money management; with 100% accuracy, Independently. Status: Progressing as expected Short-Term Goal: Pt will use compensatory strategies to solve simple routine problems, for reading, time and money management; with 80% accuracy, given skilled instruction, Moderate cueing, and extra time. Status: Progessing as expected. Patient solved homed and community related problems and could generate at least 2 viable solutions in 70% of trials, given verbal prompts. Care Plan: Care Plan ADL's - Improve/Maintain Start: 11/18/18 15:55 Freq: DAILY@ Status: Active Target: 12/31/18 Protocol: Activity Type Activity Date Activity User E-Sign Co-Sign Detail Recorded Client Recorded Date Recorded By Document 12/13/18 16:26 [id number] [id number] 12/13/18 16:26 [id number] 12/13/18 16:26 PMRU Outcome: ADL's/ADL Transfers Orders/Interventions Occupational Therapy Evaluation & Treatment Communication Tool in Patient Room Device Yes Address Deficits Secondary To: R CVA Patient to receive OT 5x/wk for 60-120 Therex min/day Self Care Management Group Therapy Neuromuscular ReEducation UE/LE ADL's with Assist Yes: Efraín ADL Transfers with Assist Yes: Efraín Toileting: Transfers,Clothing Management Yes: Efraín ,Hygeine w/Assist Light Kitchen/Laundry w/Assist No Other Outcome/Goals Pt participated well in treatment session, continues to have intermittent shooting pains in LUE, however after initial movements at each joint, pain appears to subside and pt able to tolerate/ participate in AAROM at all joints during session today. Progression Toward Outcome/Goals Progressing Cardiovascular- Improve/Maintain Start: 11/18/18 16:25 Freq: DAILY@ Status: Active Target: 12/15/18 Protocol: Activity Type Activity Date Activity User E-Sign Co-Sign Detail Recorded Client Recorded Date Recorded By Document 12/13/18 23:20 [id number] 12/14/18 00:26 [id number] 12/13/18 23:20 PMRU Outcome: Cardiovascular Vital Signs q Shift for 48hrs Then BID VS per unit standard and PRN Daily Weight Ordered No Current Cardiovascular Outcome/Goal Maintain/ Achieve Baseline HR, BP , Perfusion Maintain/ Achieve Hemodynamic Stability Free of Abnormal Cardiac Symptoms Progression Toward Outcome/Goal Progressing Communication-Improve/Maintain Start: 11/19/18 14:45 Freq: DAILY@[id number] Status: Active Target: 12/15/18 Protocol: Activity Type Activity Date Activity User E-Sign Co-Sign Detail Recorded Client Recorded Date Recorded By Document 12/13/18 23:20 [id number] [email or web address] 12/14/18 00:26 [id number] 12/13/18 23:20 PMRU Outcome: Communication/Cognitive Status Current Communication Outcome/Goals Makes Needs Known Effectively Progression Toward Outcomes/Goals Progressing DVT Prophylaxis- Improve/Maintain Start: 11/18/18 16:25 Freq: DAILY@0700,1900 Status: Active Target: 12/15/18 Protocol: Activity Type Activity Date Activity User E-Sign Co-Sign Detail Recorded Client Recorded Date Recorded By Document 12/13/18 23:20 [id number] [email or web address] 12/14/18 00:26 [id number] 12/13/18 23:20 PMRU Outcome: DVT Prophylaxis Current DVT Outcome/Goals Remains Free of DVT Complies with DVT Prophylaxis /Treatment Demonstrates Knowledge of DVT Prevention/ Treatment TEDS Stockings on Every AM, Off at HS Progression Toward Outcome/Goals Progressing Discharge Planning - Improve/Maintain Start: 11/18/18 16:25 Freq: DAILY@0700,1900 Status: Active Target: 12/15/18 Protocol: Activity Type Activity Date Activity User E-Sign Co-Sign Detail Recorded Client Recorded Date Recorded By Document 12/13/18 23:20 [id number] [email or web address] 12/14/18 00:26 [id number] 12/13/18 23:20 PMRU Outcome: Discharge Planning Update Patient Family No Current Discharge Planning Outcome/Goals Demonstrates Understanding of Discharge Plan Homecare Referral - See Comment Progression Toward Outcome/Goals Progressing Education-Improve/Maintain Start: 11/18/18 16:25 Freq: DAILY@0700,1900 Status: Active Target: 12/24/18 Protocol: Activity Type Activity Date Activity User E-Sign Co-Sign Detail Recorded Client Recorded Date Recorded By Document 12/13/18 23:20 [id number] 12/14/18 00:26 [id number] 12/13/18 23:20 PMRU Outcome: Education Current Education Outcome/Goals Demonstrates Skills Encourage Questions Progression Toward Outcome/Goals Progressing /GI-Improve/Maintain Start: 11/18/18 16:25 Freq: DAILY@0700,1900 Status: Active Target: 12/15/18 Protocol: Activity Type Activity Date Activity User E-Sign Co-Sign Detail Recorded Client Recorded Date Recorded By Document 12/13/18 23:20 [id number] [email or web address] 12/14/18 00:26 [id number] 12/13/18 23:20 PMRU Outcome: Genitourinary/ Gastrointestinal Current Gastrointestinal Outcome/Goals Maintain/ Achieve Bowel Regularity in Accordance with Pt's Baseline Remain Free of Emesis Prevent Constipation Laxatives as Ordered Progression Toward Outcome/Goals Progressing Current Genitourinary Outcome/Goals Maintain/ Achieve Urinary Continence Maintain/ Achieve Adequate Urinary Output Remain Free of Hospital- Acquired UTI Progression Toward Outcome/Goals Progressing Outcome/Goals Met Comment pt used urinal Medication Administration Start: 11/18/18 16:25 Freq: DAILY@0700,1900 Status: Active Target: 12/24/18 Protocol: Activity Type Activity Date Activity User E-Sign Co-Sign Detail Recorded Client Recorded Date Recorded By Document 12/13/18 23:20 [id number] 12/14/18 00:26 [id number] 12/13/18 23:20 PMRU Outcome: Medication Administration Assess Patient Knowledge/Teach Med Yes Education for all Meds Current Continuous Improvement [place] Outcome/Goals Family/ Caregiver Administer Medications at Home Demonstrates Understanding Progression Towards Outcome/Goals Progressing Is Patient Going Home on Lovenox? No Mobility- Improve/Maintain Start: 11/18/18 17:21 Freq: DAILY@0700,1900 Status: Active Target: 12/31/18 Protocol: Activity Type Activity Date Activity User E-Sign Co-Sign Detail Recorded Client Recorded Date Recorded By Document 12/13/18 17:10 [id number] 12/13/18 17:10 [id number] 12/13/18 17:10 PMRU Outcome: Mobility Physical Therapy Evaluation and Yes Treatment Activity OOB with Assistance Yes WBAT Yes Device Yes Assistance Yes Patient to be seen 5x/wk for 60-120 min/ Therex day for: Mobility Training Gait Training W/C Mobility Balance Current Mobility Outcome/Goals Maintain/ Achieve Baseline Mobility Status Improve Mobility Status Demonstrates Proper Use of Assistive Devices Free from Complications of Immobility Progression Toward Outcome/Goals Progressing Outcome/Goals Met Improve Mobility Status Bed Mobility Yes: independent Transfers Yes: independent with LBQC Gait x ft Yes: independent with LBQC Up/Down Stairs Yes: independent up/ down 8 stairs with 1 rail Neurological- Improve/Maintain Start: 11/18/18 16:25 Freq: DAILY@0700,1900 Status: Active Target: 12/15/18 Protocol: Activity Type Activity Date Activity User E-Sign Co-Sign Detail Recorded Client Recorded Date Recorded By Document 12/13/18 23:20 [id number] [email or web address] 12/14/18 00:26 [id number] 12/13/18 23:20 PMRU Outcome: Neurological Weakness/Aphasia Weakness Left Side Current Neurological Outcome/Goals Maintain/ Achieve Baseline Neurological Status Improve Neurological Status Prevent Avoidable Neurological Decline Demonstrate Knowledge of Prevention/Tx of Neuro Disorders/ Complication Maintain/ Improve Strength/ROM Progression Toward Outcome/Goals Progressing Nutrition/Swallowing- Improve/Maintain Start: 11/18/18 16:25 Freq: DAILY@0700,1900 Status: Active Target: 12/15/18 Protocol: Activity Type Activity Date Activity User E-Sign Co-Sign Detail Recorded Client Recorded Date Recorded By Document 12/13/18 23:20 [id number] 12/14/18 00:26 [id number] 12/13/18 23:20 PMRU Outcome: Nutrition/Swallowing Current Nutrition/Swallowing Outcome/ Demonstrates Goals Adequate Hydration/ Prevents Dehydration Maintain/ Improve Nutritional Status Progression Toward Outcome/Goals Progressing Outcome/Goals Met Comment mechanical ground and nectar thick; lower denture in place per ST earlier today Rec Therapy- Improve/Maintain Start: 11/19/18 08:48 Freq: DAILY@0700,1900 Status: Active Target: 12/31/18 Protocol: Activity Type Activity Date Activity User E-Sign Co-Sign Detail Recorded Client Recorded Date Recorded By Document 12/13/18 16:17 [id number] 12/13/18 16:18 [id number] 12/13/18 16:17 PMRU Outcome: Recreation Therapy Current Rec Ther Outcome/Goals Meet with Patient Regularly for Support Encourage Leisure Involvement Progression Toward Outcome/Goals Progressing Lack of Progression Comment pt. continues to express desire for continued leisure visits, pt. has leisure material in his room and is occassionally open to pet therapy. Outcome/Goals Met Meet with Patient Regularly for Support Encourage Leisure Involvement Respiratory - Improve/Maintain Start: 11/18/18 16:25 Freq: DAILY@0700,1900 Status: Active Target: 12/15/18 Protocol: Activity Type Activity Date Activity User E-Sign Co-Sign Detail Recorded Client Recorded Date Recorded By Document 12/13/18 23:20 [id number] 12/14/18 00:26 [id number] 12/13/18 23:20 PMRU Outcome: Respiratory Does Patient Have a Trach No Current Respiratory Outcome/Goals Maintain/ Improve Baseline Respiratory Status Maintain/ Improve Activity Tolerance Prevent Pneumonia/ Atelectasis Remain Aspiration Free Progression Toward Outcome/Goals Progressing Safety- Improve/Maintain Start: 11/18/18 11:45 Freq: DAILY@0700,1900 Status: Active Target: 12/15/18 Protocol: Activity Type Activity Date Activity User E-Sign Co-Sign Detail Recorded Client Recorded Date Recorded By Document 12/13/18 23:20 [id number] 12/14/18 00:26 [id number] 12/13/18 23:20 PMRU Outcome: Safety Current Safety Outcome/Goals Remain Free of Injury or Harm Cooperates with Safety Measures for Least Restrictive Environment Prevent Falls/ Injury Progression Toward Outcome/Goals Progressing Outcome/Goals Met Comment BA armed Skin- Improve/Maintain Start: 11/18/18 16:25 Freq: DAILY@0700,1900 Status: Active Target: 12/15/18 Protocol: Activity Type Activity Date Activity User E-Sign Co-Sign Detail Recorded Client Recorded Date Recorded By Document 12/13/18 23:20 [id number] [email or web address] 12/14/18 00:26 [id number] 12/13/18 23:20 PMRU Outcome: Skin Skin Risk Level Mild Risk Skin Orders Multipodus Boot Turn/Position q2hr While in Bed Current Skin Outcome/Goals Maintain/ Improve Skin Integrity Free from Pressure Injury Progression Toward Outcome/Goals Progressing Medicine Note: Length of Stay: 2-3 days Anticipated Discharge Destination: SNF Tentative Discharge Date: 12/16/18 Discharged to: Home
[2018-12-14] MEDS: Atorvastatin* 10 MG TAB PO SCH (19:25)
[2018-12-14] MEDS: Pramipexole TAB* 0.125 MG PO SCH (20:55)
[2018-12-14] MEDS: Melatonin 3 MG TAB PO SCH (20:56)
[2018-12-14] MEDS: Tamsulosin CAP* 0.4 MG PO SCH (20:57)
--- NOTE | 2018-12-14 21:18 | PN ---
Progress Note Date of Service: 12/14/18 Note: CHAPINCITO MORALES SR was visited. Therapy notes read and reviewed. He was discussed in interdisciplinary team rounds. After meeting about discharge, he became depressed and wanted to give up. In better spirits this evening. Current Medications: Active Medications Generic Name Dose Route Start Last Admin Trade Name Freq PRN Reason Stop Dose Admin Acetaminophen 650 mg 11/18/18 12:20 12/13/18 16:15 Tylenol Tab* PO 650 mg Q6H PRN Administration MILD PAIN or TEMP > 100.4 Albuterol 2 puff 11/21/18 13:52 12/13/18 23:20 Ventolin Hfa Inhaler* INH 2 puff Q6H PRN Administration SOB/WHEEZING Apixaban 5 mg 12/10/18 21:00 12/14/18 20:56 Eliquis* PO 5 mg BID INDU Administration Atorvastatin Calcium 10 mg 11/19/18 17:00 12/14/18 19:25 Lipitor* PO 10 mg 1700 INDU Administration Bisacodyl 10 mg 11/18/18 12:20 Dulcolax Supp* [place] DAILY PRN CONSTIPATION Clonazepam 0.5 mg 11/23/18 17:44 12/12/18 23:21 Klonopin Tab(*) PO 0.5 mg BEDTIME PRN Administration ANXIETY Docusate Sodium 100 mg 11/18/18 21:00 12/14/18 20:57 Colace Cap* PO 100 mg BID INDU Administration Finasteride 5 mg 11/19/18 09:00 12/14/18 09:58 Proscar Tab* PO Not Given DAILY INDU Folic Acid 1 mg 11/19/18 09:00 12/14/18 09:58 Folvite Tab* PO Not Given DAILY INDU Gabapentin 200 mg 12/14/18 21:00 12/14/18 20:56 Neurontin Cap(*) PO 200 mg BID INDU Administration Hydralazine HCl 10 mg 11/20/18 10:51 11/20/18 23:09 Apresoline Tab* PO 10 mg Q8H PRN Administration Systolic Bp Greater Than: 180 Hydrocortisone 1 applic 11/29/18 09:00 12/14/18 20:58 Hytone Cream 1%* TOPICAL 1 applic QID INDU Administration Losartan Potassium 50 mg 11/28/18 09:00 12/14/18 09:58 Cozaar Tab* PO Not Given DAILY INDU Magnesium Hydroxide 30 ml 11/18/18 12:20 Milk Of Magnesia Liq* PO Q6H PRN CONSTIPATION Melatonin 3 mg 11/26/18 21:00 12/14/18 20:56 Melatonin PO 3 mg BEDTIME INDU Administration Pantoprazole Sodium 40 mg 11/19/18 09:00 12/14/18 09:58 Protonix Tab* PO Not Given DAILY INDU Pramipexole Dihydrochloride 0.25 mg 11/26/18 21:00 12/14/18 20:55 Mirapex Tab* PO 0.25 mg BEDTIME INDU Administration Senna 2 tab 11/18/18 12:20 12/04/18 21:03 Senokot 8.6 Mg Tab* PO 2 tab BEDTIME PRN Administration CONSTIPATION Tamsulosin HCl 0.4 mg 11/26/18 21:00 12/14/18 20:57 Flomax Cap* PO 0.4 mg BEDTIME INDU Administration Tiotropium [place] 2 puff 11/24/18 09:00 12/14/18 08:03 Spiriva Respimat 2.5 Mcg INH 2 puff DAILY INDU Administration Vital Signs: Vital Signs Temp Pulse Resp BP Pulse Ox 97.6 F 70 18 163/73 95 12/14/18 16:15 12/14/18 16:15 12/14/18 20:56 12/14/18 16:15 12/14/18 16:15 Exam: GENERAL: alert and appropriate LUNGS: Clear to auscultation bilaterally HEART: Regular rate and rhythm ABDOMEN: Soft, + bowel sounds, non-tender, non-distended EXTREMITIES: Decreased tone LUE NEUROLOGIC: Left facial droop. RUE and RLE 5/5 motor throughout.LUE: some proximal, minimal distal movements Assessment/Plan: 1. 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 CTH reviewed by Dr. Peck. Eliquis to 5mg bid since BUN/Cr normal 2. Hypercholesterolemia: Lipitor 3. DVT Prophylaxis: eliquis 4. Dysphagia: Upgraded to mechanical ground solids 12/11. nectar thick liquids 5. Hypertension: Follow VS. Hydralazine PRN. Cozaar 50mg qday . 6. BPH: Proscar and flomax per home urologist 7. COPD: Albuterol and Spiriva for COPD 8. Advance Directives: Has MOLST. DNR 9. Paroxysmal Atrial fibrillation: Eliquis 10. Chronic kidney disease: BUN/Cr normal. 11. Restless leg syndrome: pramipexole and melatonin at night. 12. Rash on back: faded 12/14/18 21:19
[2018-12-15] MEDS: Acetaminophen TAB* 325 MG PO PRN ×2 (00:30→19:19)
[2018-12-15] MEDS: Finasteride TAB* 5 MG PO SCH (08:58)
[2018-12-15] MEDS: Apixaban* 5 MG TAB PO SCH ×2 (08:58→20:08)
[2018-12-15] MEDS: Folic Acid TAB* 1 MG PO SCH (08:58)
[2018-12-15] MEDS: Docusate CAP* 100 MG PO SCH ×2 (08:58→20:07)
[2018-12-15] MEDS: Gabapentin CAP(*) 100 MG PO SCH ×2 (08:58→20:07)
[2018-12-15] MEDS: Losartan TAB* 25 MG PO SCH (09:01)
[2018-12-15] MEDS: Hydrocortisone 1% CREAM* 30 GM TUBE TOPICAL SCH ×4 (09:01→20:09)
[2018-12-15] MEDS: Pantoprazole TAB * 40 MG TAB PO SCH (09:01)
[2018-12-15] MEDS: SPIRIVA Respimat* (tiotropium) 2.5 mcg/inh Inhaler INH SCH (10:17)
[2018-12-15] MEDS: Atorvastatin* 10 MG TAB PO SCH (16:36)
[2018-12-15] MEDS: Melatonin 3 MG TAB PO SCH (20:08)
[2018-12-15] MEDS: Tamsulosin CAP* 0.4 MG PO SCH (20:08)
[2018-12-15] MEDS: Pramipexole TAB* 0.125 MG PO SCH (20:09)
--- NOTE | 2018-12-15 22:35 | PN ---
Progress Note Date of Service: 12/15/18 Note: CHAPINCITO MORALES SR was visited. Therapy notes read and reviewed. He is taking his meds again and will go to [facility] to finish his rehab on Thursday Current Medications: Active Medications Generic Name Dose Route Start Last Admin Trade Name Freq PRN Reason Stop Dose Admin Acetaminophen 650 mg 11/18/18 12:20 12/15/18 19:19 Tylenol Tab* PO 650 mg Q6H PRN Administration MILD PAIN or TEMP > 100.4 Albuterol 2 puff 11/21/18 13:52 12/13/18 23:20 Ventolin Hfa Inhaler* INH 2 puff Q6H PRN Administration SOB/WHEEZING Apixaban 5 mg 12/10/18 21:00 12/15/18 20:08 Eliquis* PO 5 mg BID INDU Administration Atorvastatin Calcium 10 mg 11/19/18 17:00 12/15/18 16:36 Lipitor* PO 10 mg 1700 INDU Administration Bisacodyl 10 mg 11/18/18 12:20 Dulcolax Supp* SC DAILY PRN CONSTIPATION Clonazepam 0.5 mg 11/23/18 17:44 12/12/18 23:21 Klonopin Tab(*) PO 0.5 mg BEDTIME PRN Administration ANXIETY Docusate Sodium 100 mg 11/18/18 21:00 12/15/18 20:07 Colace Cap* PO 100 mg BID INDU Administration Finasteride 5 mg 11/19/18 09:00 12/15/18 08:58 Proscar Tab* PO 5 mg DAILY INDU Administration Folic Acid 1 mg 11/19/18 09:00 12/15/18 08:58 Folvite Tab* PO 1 mg DAILY INDU Administration Gabapentin 200 mg 12/14/18 21:00 12/15/18 20:07 Neurontin Cap(*) PO 200 mg BID INDU Administration Hydralazine HCl 10 mg 11/20/18 10:51 11/20/18 23:09 Apresoline Tab* PO 10 mg Q8H PRN Administration Systolic Bp Greater Than: 180 Hydrocortisone 1 applic 11/29/18 09:00 12/15/18 20:09 Hytone Cream 1%* TOPICAL 1 applic QID INDU Administration Losartan Potassium 50 mg 11/28/18 09:00 12/15/18 09:01 Cozaar Tab* PO 50 mg DAILY INDU Administration Magnesium Hydroxide 30 ml 11/18/18 12:20 Milk Of Magnesia Liq* PO Q6H PRN CONSTIPATION Melatonin 3 mg 11/26/18 21:00 12/15/18 20:08 Melatonin PO 3 mg BEDTIME INDU Administration Pantoprazole Sodium 40 mg 11/19/18 09:00 12/15/18 09:01 Protonix Tab* PO 40 mg DAILY INDU Administration Pramipexole Dihydrochloride 0.25 mg 11/26/18 21:00 12/15/18 20:09 Mirapex Tab* PO 0.25 mg BEDTIME INDU Administration Senna 2 tab 11/18/18 12:20 12/04/18 21:03 Senokot 8.6 Mg Tab* PO 2 tab BEDTIME PRN Administration CONSTIPATION Tamsulosin HCl 0.4 mg 11/26/18 21:00 12/15/18 20:08 Flomax Cap* PO 0.4 mg BEDTIME INDU Administration Tiotropium Exline 2 puff 11/24/18 09:00 12/15/18 10:17 Spiriva Respimat 2.5 Mcg INH Not Given DAILY INDU Vital Signs: Vital Signs Temp Pulse Resp BP Pulse Ox 98.4 F 70 16 138/55 94 12/15/18 16:22 12/15/18 16:22 12/15/18 22:32 12/15/18 16:22 12/15/18 16:22 Exam: GENERAL: alert and appropriate LUNGS: Clear to auscultation bilaterally HEART: Regular rate and rhythm ABDOMEN: Soft, + bowel sounds, non-tender, non-distended EXTREMITIES: Decreased tone LUE NEUROLOGIC: Left facial droop. RUE and RLE 5/5 motor throughout.LUE: some proximal, minimal distal movements Assessment/Plan: 1. Right MCA CVA with left hemiparesis: PT/OT/[employer]. CTH reviewed by Dr. Peck. Eliquis to 5mg bid since BUN/Cr normal 2. Hypercholesterolemia: Lipitor 3. DVT Prophylaxis: eliquis 4. Dysphagia: Upgraded to mechanical ground solids 12/11. nectar thick liquids 5. Hypertension: Follow VS. Hydralazine PRN. Cozaar 50mg qday . 6. BPH: Proscar and flomax per home urologist 7. COPD: Albuterol and Spiriva for COPD 8. Advance Directives: Has MOLST. DNR 9. Paroxysmal Atrial fibrillation: Eliquis 10. Chronic kidney disease: BUN/Cr normal. 11. Restless leg syndrome: pramipexole and melatonin at night. 12. Rash on back: faded 12/15/18 22:35
[2018-12-16] MEDS: SPIRIVA Respimat* (tiotropium) 2.5 mcg/inh Inhaler INH SCH (08:10)
[2018-12-16] MEDS: Finasteride TAB* 5 MG PO SCH (09:21)
[2018-12-16] MEDS: Hydrocortisone 1% CREAM* 30 GM TUBE TOPICAL SCH ×4 (09:21→20:15)
[2018-12-16] MEDS: Pantoprazole TAB * 40 MG TAB PO SCH (09:22)
[2018-12-16] MEDS: Apixaban* 5 MG TAB PO SCH ×2 (09:22→20:15)
[2018-12-16] MEDS: Folic Acid TAB* 1 MG PO SCH (09:22)
[2018-12-16] MEDS: Gabapentin CAP(*) 100 MG PO SCH ×2 (09:24→20:14)
[2018-12-16] MEDS: Losartan TAB* 25 MG PO SCH (09:24)
[2018-12-16] MEDS: Docusate CAP* 100 MG PO SCH ×2 (09:24→20:14)
[2018-12-16] MEDS: Atorvastatin* 10 MG TAB PO SCH (16:28)
--- NOTE | 2018-12-16 17:42 | PN ---
Progress Note Date of Service: 12/16/18 Note: CHAPINCITO MORALES SR was visited. Therapy notes read and reviewed. For transfer to [facility] in am. He is stable at present. Current Medications: Active Medications Generic Name Dose Route Start Last Admin Trade Name Freq PRN Reason Stop Dose Admin Acetaminophen 650 mg 11/18/18 12:20 12/15/18 19:19 Tylenol Tab* PO 650 mg Q6H PRN Administration MILD PAIN or TEMP > 100.4 Albuterol 2 puff 11/21/18 13:52 12/13/18 23:20 Ventolin Hfa Inhaler* INH 2 puff Q6H PRN Administration SOB/WHEEZING Apixaban 5 mg 12/10/18 21:00 12/16/18 09:22 Eliquis* PO 5 mg BID INDU Administration Atorvastatin Calcium 10 mg 11/19/18 17:00 12/16/18 16:28 Lipitor* PO 10 mg 1700 INDU Administration Bisacodyl 10 mg 11/18/18 12:20 Dulcolax Supp* ID DAILY PRN CONSTIPATION Clonazepam 0.5 mg 11/23/18 17:44 12/12/18 23:21 Klonopin Tab(*) PO 0.5 mg BEDTIME PRN Administration ANXIETY Docusate Sodium 100 mg 11/18/18 21:00 12/16/18 09:24 Colace Cap* PO 100 mg BID INDU Administration Finasteride 5 mg 11/19/18 09:00 12/16/18 09:21 Proscar Tab* PO 5 mg DAILY INDU Administration Folic Acid 1 mg 11/19/18 09:00 12/16/18 09:22 Folvite Tab* PO 1 mg DAILY INDU Administration Gabapentin 200 mg 12/14/18 21:00 12/16/18 09:24 Neurontin Cap(*) PO 200 mg BID INDU Administration Hydralazine HCl 10 mg 11/20/18 10:51 11/20/18 23:09 Apresoline Tab* PO 10 mg Q8H PRN Administration Systolic Bp Greater Than: 180 Hydrocortisone 1 applic 11/29/18 09:00 12/16/18 16:28 Hytone Cream 1%* TOPICAL 1 applic QID INDU Administration Losartan Potassium 50 mg 11/28/18 09:00 12/16/18 09:24 Cozaar Tab* PO 50 mg DAILY INDU Administration Magnesium Hydroxide 30 ml 11/18/18 12:20 Milk Of Magnesia Liq* PO Q6H PRN CONSTIPATION Melatonin 3 mg 11/26/18 21:00 12/15/18 20:08 Melatonin PO 3 mg BEDTIME INDU Administration Pantoprazole Sodium 40 mg 11/19/18 09:00 12/16/18 09:22 Protonix Tab* PO 40 mg DAILY INDU Administration Pramipexole Dihydrochloride 0.25 mg 11/26/18 21:00 12/15/18 20:09 Mirapex Tab* PO 0.25 mg BEDTIME INDU Administration Senna 2 tab 11/18/18 12:20 12/04/18 21:03 Senokot 8.6 Mg Tab* PO 2 tab BEDTIME PRN Administration CONSTIPATION Tamsulosin HCl 0.4 mg 11/26/18 21:00 12/15/18 20:08 Flomax Cap* PO 0.4 mg BEDTIME INDU Administration Tiotropium [place] 2 puff 11/24/18 09:00 12/16/18 08:10 Spiriva Respimat 2.5 Mcg INH 2 puff DAILY INDU Administration Vital Signs: Vital Signs Temp Pulse Resp BP Pulse Ox 97.5 F 70 18 156/57 98 12/16/18 16:00 12/16/18 16:00 12/16/18 16:00 12/16/18 16:00 12/16/18 16:00 Exam: GENERAL: alert and appropriate LUNGS: Clear to auscultation bilaterally HEART: Regular rate and rhythm ABDOMEN: Soft, + bowel sounds, non-tender, non-distended EXTREMITIES: Decreased tone LUE NEUROLOGIC: Left facial droop. RUE and RLE 5/5 motor throughout.LUE: some proximal, minimal distal movements Assessment/Plan: 1. Right MCA CVA with left hemiparesis: PT/OT/[employer]. CTH reviewed by Dr. Peck. Eliquis 5mg bid 2. Hypercholesterolemia: Lipitor 3. DVT Prophylaxis: eliquis 4. Dysphagia: mechanical ground solids/nectar thick liquids 5. Hypertension: Follow VS. Hydralazine PRN. Cozaar 50mg qday . 6. BPH: Proscar and flomax per home urologist 7. COPD: Albuterol and Spiriva for COPD 8. Advance Directives: Has MOLST. DNR 9. Paroxysmal Atrial fibrillation: Eliquis 10. Chronic kidney disease: BUN/Cr normal. 11. Restless leg syndrome: pramipexole and melatonin at night. 12. Rash on back: faded 12/16/18 17:42
[2018-12-16] MEDS: Pramipexole TAB* 0.125 MG PO SCH (20:14)
[2018-12-16] MEDS: Senna TAB 8.6 mg* TAB PO PRN (20:15)
[2018-12-16] MEDS: clonazePAM TAB(*) 0.5 MG PO PRN (20:15)
[2018-12-16] MEDS: Tamsulosin CAP* 0.4 MG PO SCH (20:15)
[2018-12-16] MEDS: Melatonin 3 MG TAB PO SCH (20:15)
--- NOTE | 2018-12-16 22:15 | TRS ---
CC: [facility] * TRANSFER SUMMARY: DATE OF ADMISSION: 11/18/18 DATE OF DISCHARGE: 12/17/18 DISCHARGE DIAGNOSES: 1. Right middle cerebral artery stroke with left hemiparesis. 2. Hypertension. 3. Paroxysmal atrial fibrillation. 4. Benign prostatic hypertrophy. 5. Dysphagia secondary to stroke. 6. Depression. HISTORY OF ILLNESS AND HOSPITAL COURSE: For complete history of the events leading up to his rehab stay, please see the history and physical dictated by me on 11/18/18. The patient shortly after admission had a video fluoroscopy evaluation to evaluate his swallow. He was put on a pureed solid nectar thick liquid diet. The patient was maintained on Plavix initially for secondary stroke prevention, but then on 11/27/18, he was switched over to Eliquis. He remains on Eliquis at this time. He was originally renally dosed, but now he is on Eliquis 5 mg twice daily. The patient's blood pressure was adequately controlled with blood pressure medications. He in addition to being on Eliquis for secondary stroke prevention is also on Lipitor. The patient had some difficulty breathing and was started no albuterol and Spiriva. This seems to have helped him. The patient otherwise was medically stable. He was seen by physical therapy, occupational therapy and speech therapy and made good gains with all disciplines. With physical therapy, originally, he was on a pureed diet, but now he is on a mechanical ground diet. He is still on nectar thick liquids. With physical therapy at the time of admission, the patient required total assistance for bed mobility, total assistance for transfers. He was unable to ambulate. At the time of discharge, the patient is min assist for bed mobility, min assist for transfers. He can ambulate 10 feet with mod to max assist. With occupational therapy at the time of admission, the patient required max assist for upper body dressing, total assist for lower body dressing, total assist for toileting and toilet transfers. By the time of discharge, the patient was still requiring max assist for lower body dressing, total assist for toileting. The patient it was felt would need continued rehabilitation before returning home. He is being transferred to [facility] in order to undergo continuing rehab on a slightly subacute scale so they might return to independent living. DISCHARGE DIET: Mechanical ground texture nectar thick liquids. DISCHARGE MEDICATIONS: 1. Eliquis 5 mg twice daily. 2. Ventolin HFA 2 puffs every 6 hours as needed. 3. Klonopin 0.5 mg at bedtime as needed. 4. Proscar 5 mg daily. 5. Neurontin 200 mg twice daily. 6. Cozaar 50 mg daily. 7. Protonix 40 mg daily. 8. Mirapex 0.25 mg at bedtime for restless legs syndrome. 9. Flomax 0.4 mg at bedtime. 10. Spiriva Respimat 2 puffs inhaled daily. SERVICES AFTER DISCHARGE: The patient will have ongoing physical therapy, occupational therapy and speech therapy. CONDITION AT DISCHARGE: The patient was in fair, but stable condition. FOLLOWUP: The patient will follow up with his doctor at [facility]. TIME SPENT: Time for this discharge was approximately 35 minutes, greater than half of that was spent with the patient regarding ongoing therapy. [id number]/CPS #: [id number] MTDD
[2018-12-17] MEDS: Acetaminophen TAB* 325 MG PO PRN (02:56)
[2018-12-17 05:12] LABS: ABS Basophils 0.1 10^3/ul (0-0.2); ABS Eosinophils 0.2 10^3/ul (0-0.6); ABS Lymphocytes 1.2 10^3/ul (1.0-4.8); Eosinophil % 1.7 %; Hematocrit 37 % (42-52); Hemoglobin 12.5 g/dL (14.0-18.0); Lymphocyte % 13.2 %; Mean Corpuscular HGB Conc 34 g/dL (31-36); Mean Corpuscular Hemoglobin 33 pg (27-31); Mean Corpuscular Volume 96 fL (80-94); Mean Platelet Volume 8.7 fL (7.4-10.4); Platelet Count 212 10^3/uL (150-450); Red Blood Count 3.84 10^6 /uL (4.18-5.48); Red Cell Distribution Width 13 % (10-15); White Blood Count 9.4 10^3/uL (3.5-10.8)
[2018-12-17 05:27] LABS: Albumin 3.2 g/dL (3.2-5.2); Potassium 4.6 mmol/L (3.5-5.0); Total Bilirubin 0.6 mg/dL (0.2-1.0)
[2018-12-17 05:33] LABS: Albumin/Globulin Ratio 1.2 (1-3); BUN/Creatinine Ratio 25.2 (8-20); EGFR African American 73.7 (>60); EGFR Non-African American 60.9 (>60); Globulin 2.6 g/dL (2-4); Total Protein 5.8 g/dL (6.4-8.9)
[2018-12-17 07:30] VITALS: BP 152/46
[2018-12-17] MEDS: Finasteride TAB* 5 MG PO SCH (08:29)
[2018-12-17] MEDS: Losartan TAB* 25 MG PO SCH (08:30)
[2018-12-17] MEDS: Gabapentin CAP(*) 100 MG PO SCH (08:30)
[2018-12-17] MEDS: Folic Acid TAB* 1 MG PO SCH (08:30)
[2018-12-17] MEDS: Apixaban* 5 MG TAB PO SCH (08:30)
[2018-12-17] MEDS: Pantoprazole TAB * 40 MG TAB PO SCH (08:30)
[2018-12-17] MEDS: Docusate CAP* 100 MG PO SCH (08:30)
[2018-12-17] MEDS: Hydrocortisone 1% CREAM* 30 GM TUBE TOPICAL SCH (08:32)
[2018-12-17] MEDS: SPIRIVA Respimat* (tiotropium) 2.5 mcg/inh Inhaler INH SCH (08:33)
[2018-12-17] MEDS ORDERED: clonazePAM TAB(*) 0.5 MG PO PRN (11:58)
== END 2018-12-17 14:20 | DRG 57 ==
LOC: PMRU 11:25
PROVIDERS: ADMIT Physical Medicine & Rehabilitation; ATTEND Physical Medicine & Rehabilitation
PROC: F07Z5ZZ Bed Mobility Treatment (ICD-10-PCS; principal; 2018-11-18)
PROC: F07Z9ZZ Gait Training/Functional Ambulation Treatment (ICD-10-PCS; 2018-11-18)
PROC: F07Z8ZZ Transfer Training Treatment (ICD-10-PCS; 2018-11-18)
PROC: F07Z4ZZ Wheelchair Mobility Treatment (ICD-10-PCS; 2018-11-18)
PROC: F08Z0ZZ Bathing/Showering Techniques Treatment (ICD-10-PCS; 2018-11-18)
PROC: F08Z1ZZ Dressing Techniques Treatment (ICD-10-PCS; 2018-11-18)
PROC: F08Z3ZZ Feeding/Eating Treatment (ICD-10-PCS; 2018-11-18)
PROC: F08Z4ZZ Home Management Treatment (ICD-10-PCS; 2018-11-18)
PROC: F06ZDZZ Swallowing Dysfunction Treatment (ICD-10-PCS; 2018-11-18)
PROC: F06Z8ZZ Motor Speech Treatment (ICD-10-PCS; 2018-11-18)
PROC: F06 Physical Rehabilitation and Diagnostic Audiology, Rehabilitation, Speech Treatment (ICD-10-PCS; 2018-11-18)
DX: I69.354 Hemiplegia and hemiparesis following cerebral infarction affecting left non-dominant side (principal); N39.0 Urinary tract infection, site not specified; I48.0 Paroxysmal atrial fibrillation; I69.391 Dysphagia following cerebral infarction; R13.10 Dysphagia, unspecified; I69.392 Facial weakness following cerebral infarction; J44.9 Chronic obstructive pulmonary disease, unspecified; L89.892 Pressure ulcer of other site, stage 2; I12.9 Hypertensive chronic kidney disease with stage 1 through stage 4 chronic kidney disease, or unspecified chronic kidney disease; N18.9 Chronic kidney disease, unspecified; N40.0 Benign prostatic hyperplasia without lower urinary tract symptoms; Z66 Do not resuscitate; S40.812D Abrasion of left upper arm, subsequent encounter; S00.81XD Abrasion of other part of head, subsequent encounter; S20.312D Abrasion of left front wall of thorax, subsequent encounter; S40.212D Abrasion of left shoulder, subsequent encounter; S90.811D Abrasion, right foot, subsequent encounter; E78.00 Pure hypercholesterolemia, unspecified; F32.9 Major depressive disorder, single episode, unspecified; R21 Rash and other nonspecific skin eruption; L08.0 Pyoderma; G25.81 Restless legs syndrome; G47.00 Insomnia, unspecified; R06.02 Shortness of breath; B95.2 Enterococcus as the cause of diseases classified elsewhere; Z95.0 Presence of cardiac pacemaker; Z79.02 Long term (current) use of antithrombotics/antiplatelets; Z79.899 Other long term (current) drug therapy; Z88.0 Allergy status to penicillin; Z87.891 Personal history of nicotine dependence; E66.9 Obesity, unspecified; Z68.25 Body mass index [BMI] 25.0-25.9, adult
CPT/HCPCS: 36415; 70450; 71045; 74230; 80048; 80053; 81003; 81015; 85025; 87077; 87086; 87186; 93005; 94640; A9270-GY; G0515-GO; J1644; J1940; J3535